=== PATIENT | female | born 1995 | race Caucasian/White ===

== ENCOUNTER 2022-04-22 16:01 | Emergency (ER) | payer BC, SELFPAY ==
--- OUTSIDE RECORDS SUMMARY | 2022-04-22 16:11 | XMS_ITS | Clinical Summary ---
:1995 Author Organization [facility] [place] [address] Care Team Providers Name Role Phone Malini Hoyos MD Primary Care Provider Allergies No known active allergies Medications Medication Sig Dispensed Refills Start Date End Date Status acetaminophen-codeine 6-12 mL, PO, 0 02/20/2008 Active (TYLENOL WITH CODEINE) Q4-6H,PRN 120-12 mg/5 mL solution Social History Tobacco Use Types Packs/Day Years Used Date Never Assessed Sex Assigned at Date Recorded Not on file Plan of Treatment Health Maintenance Due Date Last Done Comments Covid-19 Vaccine (#1) 2001 HPV vaccine (1 - 2-dose series) 12/30/2007 Chlamydia Screening, female 15-25 12/30/2011 HIV screen 2014 Hepatitis C Screening 2014 Tdap adult 12/30/2015 Tetanus vaccine 12/30/2015 PAP Smear 2017 Influenza (Flu) vaccine (1 of - Influenza standard 06/28/2021 series) Insurance Payer Benefit Plan / Subscriber ID Effective Dates Phone Addre ss Type Group [employer] [place] [id number] 2018-Present [address] [place] [address] Care Teams Senior Coldfusion Developer Relationship Specialty Start Date End Date Malini Hoyos MD PCP - General 09/19/10 [address] [place], [place] [address]
--- OUTSIDE RECORDS SUMMARY | 2022-04-22 16:11 | XMS_ITS | Encounter Summary ---
:1995 Author Organization [facility] Address [address] [place] [address] Care Team Providers Name Role Phone Albertina Johnson PA-C Primary Care Provider Reason for Referral (Routine) - Authorization Not Required Specialty Diagnoses / Procedures Referred By Contact Refer red To Contact Diagnoses Moderate persistent asthma, unspecified whether complicated Chloe Celis, ANALYTICAL TECH Procedures PULMONARY FUNCTION TESTING [address] [phone] Referral ID Status Reason Start Expiration Visits Visits Date Date Requested Authorized [id number] Authorization Not 09/30/2019 1 1 Required Reason for Visit (Routine) - Authorization Not Required Specialty Diagnoses / Procedures Referred By Contact Refer red To Contact Diagnoses Moderate persistent asthma, unspecified whether complicated Chloe Celis, ANALYTICAL TECH Procedures PULMONARY FUNCTION TESTING [address] [phone] Referral ID Status Reason Start Expiration Visits Visits Date Date Requested Authorized [id number] Authorization Not 09/30/2019 1 1 Required Encounter Details Date Type Department Care Team Description 09/30/2020 Hospital Encounter [facility] Mod erate persistent Pulmonary Function Lab asthm a, unspecified - [facility] whether complicated [address] [place] [address] Social History Tobacco Use Types Packs/Day Years Used Date Passive Smoke Exposure - Never Smoker Smokeless Tobacco: Never Used Alcohol Use Standard Drinks/Week Comments No 0 (1 standard drink = 0.6 oz pure alcoho l) Sex Assigned at Date Recorded Female 09/16/2021 22:07 EST documented as of this encounter Medications at Time of Discharge Medication Sig Dispensed Refills Start Date End Date cortisone acetate Inject into the 0 (CORTISONE IM) muscle. Not IM but pt does have Cortisone injections in SI Joint every couple of months. fluticasone (VERAMYST) Instill 1 [place] into 0 27.5 mcg/actuation nasal both nostrils daily. spray ibuprofen (MOTRIN) 400 every 6 hours as 0 mg tablet needed. inhalational spacing Inhale as directed. 0 device (AEROCHAMBER) Use with a metered dose inhaler, as directed. May be dispensed with mask as appropriate. medical supply, Knee high 0 01/02/2017 miscellaneous (COMPRESSION STOCKINGS MIS) metoprolol (LOPRESSOR) Take 25 mg by mouth 0 25 mg tablet daily as needed. montelukast (SINGULAIR) Take 1 Tab by mouth 30 Tab 11 01/2019 10 mg tablet every evening. MULTIVITAMIN ORAL Take by mouth. 0 albuterol (PROAIR HFA) Inhale 1-2 Puffs as 1 Inhaler 11 01/201910/10/2020 90 mcg/actuation inhaler directed every 4 hours as needed for Wheezing. Max: 12 puffs/day. norgestimate-ethinyl Take 1 Tab by mouth 0 12/22/2021 estradiol (SPRINTEC, daily. 28,) 0.25-35 mg-mcg per tablet documented as of this encounter Discharge Disposition Disposition Code Departure Means Destination Home or Self Care documented in this encounter Progress Notes Inna Banegas RT - 09/30/2020 1430 EST Testing was performed and recorded in [facility]. See complete report in scanned documents. documented in this encounter Plan of Treatment Scheduled Orders Name Type Priority Associated Diagnoses Order S chedule PULMONARY FUNCTION PFT Routine Moderate persistent 1 Occurrences starting TESTING asthma, unspecified 09/30/20 20 until whether complicated 09/30/20 documented as of this encounter Procedures Procedure Name Priority Date/Time Associated Diagnosis Comme nts PULMONARY FUNCTION REPORT 10/07/2020 12:59 EST - SCANNED documented in this encounter Visit Diagnoses Diagnosis Moderate persistent asthma, unspecified whether complicated documented in this encounter Administered Medications Inactive Administered Medications - up to 3 most recent administrations Medication Order MAR Action Action Date Dose Rate Site albuterol inhaler 180 mcg Given 09/30/2020 14:35 EST 180 mcg 180 mcg (2 Puff), inhalation, ONCE, 1 dose, Starting on Sat09/30/20 at 1500, Until Sat09/30/20 at 1435, Routine documented in this encounter Orders Medications Ordered That Might Not Have Count Last Ord ered Date First Ordered Date Been Administered albuterol inhaler 180 mcg 1 09/30/2020 Procedures Count Last Ordered Date First Ordered Date PULMONARY FUNCTION REPORT - SCANNED 1 10/07/2020 documented in this encounter Care Teams Tack Puller Relationship Specialty Start Date End Date Albertina Johnson PA-C PCP - General 10/15/14 [address] [place] [address] documented as of this encounter
--- OUTSIDE RECORDS SUMMARY | 2022-04-22 16:11 | XMS_ITS | Encounter Summary ---
:1995 Author Organization [facility] Address [address] [place] [address] Care Team Providers Name Role Phone Albertina Johnson PA-C Primary Care Provider Encounter Details Date Type Department Care Team Description 09/04/2021 Orders Only [facility] Chloe Celis, Abdirahman dove persistent Pulmonary Function [facility] asthma without Lab - [address] complication (Primary [address] Dx) [place], [place] [id number] [place] [address] [address], [address] [place] [address] (Wo rk) Social History Tobacco Use Types Packs/Day Years Used Date Passive Smoke Exposure - Never Smoker Smokeless Tobacco: Never Used Alcohol Use Standard Drinks/Week Comments Yes 0 (1 standard drink = 0.6 oz pure alcoho l) socially Alcohol Habits Answer Date Recorded How often do you have a drink containing alcohol? Not asked How many drinks containing alcohol do you have on a typical Not asked day when you are drinking? How often do you have six or more drinks on one occasion? No t asked Comment: socially 08/14/2021 Sex Assigned at Date Recorded Female 09/16/2021 22:07 EST COVID-19 Exposure Response Date Recorded In the last month, have you been in contact with No / Unsure 08/14/2021 13:43 EDT someone who was confirmed or suspected to have Coronavirus / COVID-19? documented as of this encounter Progress Notes Kleber Mckeon - 09/04/2021 1354 EST COVID test order for PFT procedure on 09/20/21 documented in this encounter Plan of Treatment Not on filedocumented as of this encounter Results COVID-19 TESTING (09/17/2021 10:33 EST) COVID-19 rt-PCR Negative Negative [facility] Result Comment: [facility] This test has not been FDA c leared or approved. This test has been authorized by FDA under an EUA for use by authorized laboratories. This test has been authorized only for detection of nucleic acid fro SERVICES m 2019-nCoV, not for any oth er viruses or pathogens. This test is only authorized for the duration of the declaration that circumstances exist justifying the authorization of emergency use of in vitro d iagnostic tests for detectio n and/or diagnosis of 2019-nCoV under section 564(b)(1) of Act, 21 U.S.C ?? 360bbb-3(b) (1), unless the authorization is terminated or revoked sooner. Negative results do not prec lude 2019-nCoV infection and should not be used as the sole basis for treatment or other patient management decisions. Negative results must be combined with clinical observa tions, patient history, and epidemiological informatio n. Testing was performed using the poppy SARS-CoV-2 assay ([employer] on the Poppy 6800 System Performing Lab Poppy [address] [facility] Lab [facility] Specimen Swab - Anterior nares Performing Organization Address City/State/ZIP Code Phon e Number [facility] [address] [place] [address] SERVICES documented in this encounter Visit Diagnoses Diagnosis Moderate persistent asthma without compl ication - Primary Unspecified asthma documented in this encounter Care Teams Senior Policy Advisor Relationship Specialty Start Date End Date Albertina Johnson PA-C PCP - General 10/15/14 [address] [place] [address] documented as of this encounter
--- OUTSIDE RECORDS SUMMARY | 2022-04-22 16:11 | XMS_ITS | Encounter Summary ---
:1995 Author Organization [facility] Address [address] [place] [address] Care Team Providers Name Role Phone Albertina Johnson PA-C Primary Care Provider Encounter Details Date Type Department Care Team Description 10/03/2020 Orders Only [facility] Srikanth Henry, EVONNE Conta ct with and Pulmonology & Critical (susp ected) exposure to Care - [facility] other viral [address] [facility] [place] [address] (Primary Dx) [phone] Social History Tobacco Use Types Packs/Day Years Used Date Passive Smoke Exposure - Never Smoker Smokeless Tobacco: Never Used Alcohol Use Standard Drinks/Week Comments No 0 (1 standard drink = 0.6 oz pure alcoho l) Sex Assigned at Date Recorded Female 09/16/2021 22:07 EST documented as of this encounter Plan of Treatment Not on filedocumented as of this encounter Visit Diagnoses Diagnosis Contact with and (suspected) exposure to other viral communicable diseases - Primary documented in this encounter Care Teams Full Stack Developer Relationship Specialty Start Date End Date Albertina Johnson PA-C PCP - General 10/15/14 [address] [place], [place] [id number] documented as of this encounter
--- OUTSIDE RECORDS SUMMARY | 2022-04-22 16:11 | XMS_ITS | Encounter Summary ---
:1995 Author Organization [facility] [place] [address] Care Team Providers Name Role Phone Malini Hoyos MD Primary Care Provider Reason for Referral Diagnostic Test (Routine) - Closed Specialty Diagnoses / Procedures Referred By Contact Refer red To Contact Radiology Diagnoses Chronic SI joint pain Low back pain, unspecified back pain laterality, unspecified chronicity, unspecified whether sciatica present Tamy Law MD [facility] Rad Ct Scan Procedures CT Guided Injection SI Joint [address] [place], [place] [id number] [place] [phone] Referral ID Status Reason Start Date Expiration Date Visits V isits Requested Authorized [id number] Closed Specialty 11/10/2019 05/10/2021 1 1 Service Requested Reason for Visit Diagnostic Test (Routine) - Closed Specialty Diagnoses / Procedures Referred By Contact Refer red To Contact Radiology Diagnoses Chronic SI joint pain Low back pain, unspecified back pain laterality, unspecified chronicity, unspecified whether sciatica present Tamy Law MD [facility] Rad Ct Scan Procedures CT Guided Injection SI Joint [address] [place], [place] [address] [place] [phone] Referral ID Status Reason Start Date Expiration Date Visits V isits Requested Authorized [id number] Closed Specialty 11/10/2019 05/10/2021 1 1 Service Requested Encounter Details Date Type Department Care Team Description 12/01/[address] Scan at [facility] Thanh, Chronic SI joint pain; [facility] MD Tamy Low back pain, unspecified back pain lat erality, unspecified chronicity, unspecified whether sciatica present [address] [facility] [place] [address] [phone] Social History Tobacco Use Types Packs/Day Years Used Date Never Assessed Sex Assigned at Date Recorded Not on file documented as of this encounter Medications at Time of Discharge Medication Sig Dispensed Refills Start Date End Date acetaminophen-codeine 6-12 mL, PO, 0 02/20/2008 (TYLENOL WITH CODEINE) Q4-6H,PRN 120-12 mg/5 mL solution documented as of this encounter Plan of Treatment Not on filedocumented as of this encounter Procedures Procedure Name Priority Date/Time Associated Diagnosis Comme nts CT GUIDED INJECTION Routine 12/01/2019 10:10 AM Chronic SI carlyn nt Results for this SI JOINT EST pain procedure are in Low back pain, the results unspecified back section. pain laterality, unspecified chronicity, unspecified whether sciatica present documented in this encounter Results CT Guided Injection SI Joint (12/01/2019 10:10 AM EST) Anatomical Region Laterality Modality Computed Tomography Specimen (Source) Anatomical Location Collection Method / Collectio n Time Received Time / Laterality Volume Impressions 12/01/2019 10:[address]-guided bilateral sacroiliac joint anesthetic and steroid injection. Preliminary report signed by: Harshad leyva at 12/01/2019 10:32 AM I have personally reviewed the image(s) and the resident's interpretation and agree with the findings, Luis hogan at 12/01/2019 10:39 AM Thank you for letting us participate in the care of this patient. For questions regarding this report, please contact geoffrey jin below. ? Narrative 12/01/2019 10:39 AM EST EXAMINATION: CT GUIDED INJECTION SI JOINT ? CLINICAL HISTORY: Bilateral SI injection for dx and tx purposes COMPARISON: MRI lumbar spine 04/02/2019 TECHNIQUE: The risks and benefits of the procedure were discussed with the patient, and written informed consent was obtained. ? ?The patient was positioned prone on the CT table, and noncontrast images of the sacrum were obtained. ??An appropriate level and access path were chosen. ??The skin was then marked, prepped and draped in the usual sterile fashion. 1% lidocai ne used for local anesthesia. ?? With intermittent CT fluoroscopic guidan ce, a 20-gauge spinal needle was advanced into each sacroiliac joint. Int o each joint, 2 mL of 0.5% bupivacaine mixed with 40 mg of Depo-Medrol was inje cted. ??The needles were removed. The patient tolerated the procedure well wit h no immediate complications. FINDINGS: Sclerotic lesion along the chet al side of the syndesmotic portion of the right sacroiliac joint, most compati ble with bone island. Preprocedure pain: 4/10 on the left, 3/1 0 on the right Postprocedure pain: 0/10 bilaterally Procedure Note Luis Hernandez MD - 12/01/2019Format ting of this note might be different from the original. EXAMINATION: CT GUIDED INJECTION SI JOIN T CLINICAL HISTORY: Bilateral SI injection for dx and tx purposes COMPARISON: MRI lumbar spine 04/02/2019 TECHNIQUE: The risks and benefits of the procedure were discussed with the patient, and written informed consent was obtained. T he patient was positioned prone on the CT table, and noncontrast images of the sacrum were obtained. An appropriate level and access path were chosen. The s kin was then marked, prepped and draped in the usual sterile fashion. 1% lidocai ne used for local anesthesia. With intermittent CT fluoroscopic guidan ce, a 20-gauge spinal needle was advanced into each sacroiliac joint. Int o each joint, 2 mL of 0.5% bupivacaine mixed with 40 mg of Depo-Medrol was inje cted. The needles were removed. The patient tolerated the procedure well wit h no immediate complications. FINDINGS: Sclerotic lesion along the chet al side of the syndesmotic portion of the right sacroiliac joint, most compati ble with bone island. Preprocedure pain: 4/10 on the left, 3/1 0 on the right Postprocedure pain: 0/[address]-guided bilateral sacroilia c joint anesthetic and steroid injection. Preliminary report signed by: Harshad leyva at 12/01/2019 10:32 AM I have personally reviewed the image(s) and the resident's interpretation and agree with the findings, Luis hogan at 12/01/2019 10:39 AM Thank you for letting us participate in the care of this patient. For questions regarding this report, please contact [facility] number below. Tamy Law MD IMG CT ORDERABLES documented in this encounter Visit Diagnoses Diagnosis Chronic SI joint pain Disorders of sacrum Low back pain, unspecified back pain lat erality, unspecified chronicity, unspecified whether sciatica present documented in this encounter Care Teams Eyeglass Maker Relationship Specialty Start Date End Date Malini Hoyos MD PCP - General 09/19/10 [address] [place] [address] documented as of this encounter
--- OUTSIDE RECORDS SUMMARY | 2022-04-22 16:11 | XMS_ITS | Clinical Summary ---
:1995 Author Organization [facility] Address [address] [place] [address] Care Team Providers Name Role Phone Albertina Johnson PA-C Primary Care Provider Allergies No known active allergies Medications Medication Sig Dispensed Refills Start Date End Date Status inhalational spacing Inhale as 0 Active device (AEROCHAMBER) directed. Use with a metered dose inhaler, as directed. May be dispensed with mask as appropriate. metoprolol (LOPRESSOR) Take 25 mg by 0 Active 25 mg tablet mouth daily as needed. MULTIVITAMIN ORAL Take by mouth. 0 Active fluticasone (VERAMYST) Instill 1 [place] 0 Active 27.5 mcg/actuation into both nostrils nasal spray daily. montelukast Take 1 Tab by 30 Tab 11 09/30/2019 Act timbo (SINGULAIR) 10 mg mouth every tablet evening. Additional Information Patient not taking. Reported on 09/30/2020 ibuprofen (MOTRIN) 400 mg every 6 hours as needed. 0 Active tablet medical supply, miscellaneous Knee high 0 01/02/2017 Active (COMPRESSION STOCKINGS MISC) cortisone acetate (CORTISONE Inject into the muscle. Not 0 Active IM) IM but pt does have Cortisone injections in SI Joint every couple of months. levalbuterol (XOPENEX HFA) 45 Inhale 1-2 Puffs as 15 g 11 09/22/2021 Active mcg/actuation inhaler directed every 4 to 6 hours as needed for Wheezing. Max 12 puffs/day. fluticasone propion-salmeteroL Inhale 2 Puffs as directed 12 g 0 12/07/2021 Active (ADVAIR HFA) 115-21 2 times daily. mcg/actuation inhalerIndications: Moderate persistent asthma without complication Active Problems Problem Noted Date Asthma, mild persistent 11/22/2014 Immunizations Name Administration Dates Next Due Covid-19 mRNA Vaccine (MODERNA COVID-19) 08/31/2021, 021, 11/11/2020 PF 0.5 ml IM (18 yrs+) Surgical History Surgery Date Site/Laterality Comments FOOT SURGERY FOOT SURGERY WISDOM TOOTH EXTRACTION Medical History Medical History Date Comments Asthma Family History Medical History Relation Name Comments Asthma Father Cancer Maternal Grandfather Asthma Maternal Grandmother Cancer Maternal Grandmother Asthma Mother Cancer Paternal Grandfather Allergic Rhinitis Neg Hx Childhood Resp Disease Neg Hx Cystic Fibrosis Neg Hx Relation Name Status Comments Father Alive Maternal Grandfather Maternal Grandmother Alive Mother Alive Paternal Grandfather Social History Tobacco Use Types Packs/Day Years [...] at Date Recorded Female 09/16/2021 22:07 EST Last Filed Vital Signs Vital Sign Reading Time Taken Comments Blood Pressure 128/80 09/20/2021 1530 EST Pulse 102 09/20/2021 1530 EST Temperature 36.4 ??C (97.5 ??F) 09/20/2021 1530 EST Respiratory Rate 20 09/30/2020 1459 EST Oxygen Saturation 100% 09/20/2021 1530 EST Inhaled Oxygen Concentration - - Weight 59 kg (130 lb) 09/20/2021 1530 EST Height 156 cm (5' 1.42) 09/30/2020 1459 EST Body Mass Index 24.23 09/30/2020 1459 EST Plan of Treatment Health Maintenance Due Date Last Done Comments Asthma Action Plan 1995 Hepatitis C Screen 1995 Lung Function Test (Spirometry) 09/20/2022 09/20/2021, 12/0 01/2020, 09/30/2019, Additional history exists COVID-19 Vaccine Completed 08/31/2021, 12/09/2020, 11/11/2020 Insurance Payer Benefit Plan / Subscriber ID Effective Phone Address T ype Group Dates [facility] [id number] 2020-Prese [phone] [address] [facility] [employer] [address] [place] [address] [facility] [id number] 2020-Prese [phone] [address] [facility] [employer] [address] [place] [address] Diaz,Kassity A Personal/Family Self [address] (Home) [place] [address] Diaz,Kassity A Personal/Family Self [address] (Home) [place] [address] Care Teams Glue Machine Operator Relationship Specialty Start Date End Date Albertina Johnson PA-C PCP - General 10/15/14 [address] [place], [place] [address]
--- OUTSIDE RECORDS SUMMARY | 2022-04-22 16:11 | XMS_ITS | Encounter Summary ---
:1995 Author Organization [facility] Address [address] [place] [address] Care Team Providers Name Role Phone Albertina Johnson PA-C Primary Care Provider Reason for Visit Reason Onset Date Comments Pharmacy 09/25/2021 Follow-up 09/25/2021 Encounter Details Date Type Department Care Team Description 09/25/2021 Telephone [facility] Chloe Celis, [facility] Pharmacy; Follow-up Pulmonology & Critical [address] [place] [address], [address] [place], [place] [id number] [place] [phone] (Wo rk) Social History Tobacco Use Types [...] 22:07 EST documented as of this encounter Miscellaneous Notes Telephone Encounter - Vadim Dean, - 09/26/2021 0950 EST R: clarified with [facility] pharmacy. Cancel symbicort / albuterol and fill Xopenex/advair. Telephone Encounter - Carmen Small - 09/25/2021 1620 EST Jane calling from [facility] Pharmacy to follow up on request for clarification on medication. Please call back to advise, or if any questions or concerns. elephone Encounter - Lu Verma - 09/25/2021 1049 EST Anum calling from [facility] checking on the recent prescription for the Advair and the Levalbuterol to see if those 2 are replacing the Simbacort and the Albuterol. Please call back. documented in this encounter Plan of Treatment Not on filedocumented as of this encounter Visit Diagnoses Not on filedocumented in this encounter Care Teams Recruiting Scheduler Relationship Specialty Start Date End Date Albertina Johnson PA-C PCP - General 10/15/14 [address] [place] [address] documented as of this encounter
--- OUTSIDE RECORDS SUMMARY | 2022-04-22 16:11 | XMS_ITS | Encounter Summary ---
:1995 Author Organization [facility] Address [address] [place] [address] Care Team Providers Name Role Phone Albertina Johnson PA-C Primary Care Provider Encounter Details Date Type Department Care Team Description 08/14/2021 Travel Social History Tobacco Use Types Packs/Day Years [...] / COVID-19? documented as of this encounter Plan of Treatment Not on filedocumented as of this encounter Visit Diagnoses Not on filedocumented in this encounter Care Teams Emt Dispatcher Relationship Specialty Start Date End Date Albertina Johnson PA-C PCP - General 10/15/14 [address] [place] [address] documented as of this encounter
--- OUTSIDE RECORDS SUMMARY | 2022-04-22 16:11 | XMS_ITS | Encounter Summary ---
:1995 Author Organization [facility] Address [address] [place] [address] Care Team Providers Name Role Phone Albertina Johnson PA-C Primary Care Provider Reason for Referral Test (Routine/Next Available) - Authorization Not Required Specialty Diagnoses / Procedures Referred By Contact Refer red To Contact Diagnoses Moderate persistent asthma without complication Chloe Celis, BURLAP BAG SEWER Procedures PULMONARY FUNCTION TESTING 111 [facility] [address] [place] [address] Referral ID Status Reason Start Expiration Visits Visits Date Date Requested Authorized [id number] Authorization Not 12/22/2021 1 1 Required Reason for Visit Reason Comments Telemedicine Video Visit 3mos Asthma Encounter Details Date Type Department Care Team Description 12/22/2021 Telemedicine [facility] Chloe Celis, Abdirahman dove persistent Pulmonology & BURLAP BAG SEWER asthma without Critical Care - Main 111 [facility] ([facility] [address]) [address] [place] [place] [id number] [place] [address] [place] [address] (Wo rk) Social History Tobacco [...] 22:07 EST documented as of this encounter Progress Notes Chloe Celis NP - 12/22/2021 1000 EST Pulmonary Clinic Follow Up Note Date of Service: 12/22/2021 CC: Chief Complaint Patient presents with ??? Telemedicine Video Visit 3mos ??? Asthma TELEMEDICINE VIDEO VISIT Today's visit was provided through telemedicine video conferencing: The location of the patient : Workplace The location of the provider: Office The following staff and their role did participate in today's encounter visit: Chloe Celis NP History of Present Illness: Rey Diaz is a very pleasant 25 y.o. female with a history of moderate persistent asthma/ GOLD stage I COPD who I spoke with via video today for follow-up. Since I last saw her in person in clinic in August she was able to eventually get her prescriptions filled at the [facility] after having to negotiate difficulties with the pharmacy. She has felt improved using her Advair 115/21, 2 puffs twice a day noting that she has not used her albuterol more than 3 times since starting her new medication. 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 She notes significant increased tolerance of the Xopenex without the shaking/trembling side effects she had previously experienced with ProAir. She denies any recent illnesses. Her scratchy throat is improved. 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 She got in June to her Chris. They have a wood stove but rarely use this asidefrom secondary heat. She recently stopped taking her control. Review of Systems: A 12-point review of systems was completed and otherwise negative aside from what is mentioned above. Past Medical History: Diagnosis Date ??? Asthma Past Surgical History: Procedure Laterality Date ??? FOOT SURGERY ??? FOOT SURGERY ??? WISDOM TOOTH EXTRACTION Social History Tobacco Use ??? Smoking status: Passive Smoke Exposure - Never Smoker ??? Smokeless tobacco: Never Used Substance Use Topics ??? Alcohol use: Yes Comment: socially ??? Drug use: Not on file Current Outpatient Medications Medication ??? albuterol (PROAIR HFA) 90 mcg/actuation inhaler ??? cortisone acetate (CORTISONE IM) ??? fluticasone (VERAMYST) 27.5 mcg/actuation nasal spray ??? fluticasone propion-salmeteroL (ADVAIR HFA) 115-21 mcg/actuation inhaler ??? fluticasone propion-salmeteroL (ADVAIR HFA) 115-21 mcg/actuation inhaler ??? ibuprofen (MOTRIN) 400 mg tablet ??? inhalational spacing device (AEROCHAMBER) ??? levalbuterol (XOPENEX HFA) 45 mcg/actuation inhaler ??? medical supply, miscellaneous (COMPRESSION STOCKINGS MISC) ??? metoprolol (LOPRESSOR) 25 mg tablet ??? montelukast (SINGULAIR) 10 mg tablet ??? MULTIVITAMIN ORAL ??? norgestimate-ethinyl estradiol (SPRINTEC, 28,) 0.25-35 mg-mcg per tablet No current facility-administered medications for this visit. No Known Allergies Objective: LIMITED PHYSICAL EXAM: General: Alert, cooperative, no distress, appears stated age. Head: Normocephalic, without obvious abnormality, atraumatic. Eyes: Conjunctivae/corneas clear. Extremities: Respiratory: Cardiac: Extremities normal, atraumatic, no cyanosis or edema. Breathing comfortably at regular rate, eupneic. acyanotic Skin: Skin color, texture, turgor normal. No rashes or lesions. Neurologic: Mood and affect appropriate otherwise non focal. DIAGNOSTIC DATA Pulmonary function studies, ordered and reviewed by me, show FVC of 3.66, 106% of predicted FEV1 of 2.41, 80% of predicted Ratio of 65, 75 % of predicted. Consistent with mild persistent airflow limitation. FEV1 slightly diminished from testing a year ago down from 2.51 IMAGING: Recent imaging of the chest available for review. Assessment and Plan: Rey Diaz is a nishi 25 y.o. young lady with moderate persistent asthma and persistent airflowlimitation although her FVC and FEV1 are improved from her spirometry in June 2019. I am happy that she is able to report improvement in her dry scratchy throat given the change to Advair. I am also happy to hear that she feels that she is tolerating levalbuterol/Xopenex better without the previously described side effects. I encouraged her to continue exercising regularly and taking her inhalers regularly. Given that she has recently stopped taking her control and that she and her are planning on starting a family in the next year or so, I cautioned Rey that some women feel that their asthma worsens while . I asked for her to reach out if she feels that her symptoms are worsening if/when she becomes . She was appreciative of this anticipatory guidance. I will plan to follow-up with her in approximately 1 year. Please do not hesitate to contact me with any questions or concerns. Chloe Celis NP Pulmonary Medicine [facility] I spent a total of 30 minutes on the date of this encounter meeting with the patient and reviewing documentation/coordinating care as described in the above note. This note has been prepared with voice recognition software. Please excuse consultative sales associate errors. Cleopatra Yan MA - 12/22/2021 1000 EST Intake: Patient reports that her breathing has been good and states that she really likes the new inhalers she was put on last time. Patient states that she has not noticed SOB, chest tightness or wheezing. Patient reports occasionally coughing if it is very cold out, noting that it is not often. Patient states that the cough is non productive. Cleopatra Yan MA - 12/22/2021 1000 EST The concept of ???Telemedicine?? has been described to the patient.? Patient has been informed of the anticipated benefits and possible risks.? Patient understands the information provided regarding telemedicine, has had the opportunity to ask questions about this information, and all questions have been answered to patient???s satisfaction. Patient consents for the use of telemedicine in his/her medical care and authorizes the transmission of any relevant medical information to providers and theirstaff involved in patient???s medical or mental health care. Patient understands that they may be responsible for copays, deductible or coinsurance for this service. documented in this encounter Plan of Treatment Scheduled Orders Name Type Priority Associated Diagnoses Order S chedule PULMONARY FUNCTION PFT Routine Moderate persistent 1 Occurrences starting TESTING asthma without 12/22/2021 un til complication 06/21/2023 documented as of this encounter Visit Diagnoses Diagnosis Moderate persistent asthma without compl ication - Primary Unspecified asthma documented in this encounter Discontinued Medications Medication Sig Discontinue Reason Start Date End Date norgestimate-ethinyl Take 1 Tab by mouth Patient Stopped Taking 12/22/2021 estradiol (SPRINTEC, daily. 28,) 0.25-35 mg-mcg per tablet albuterol (PROAIR HFA) Inhale 1-2 Puffs as Patient Stopped Taking 1 12/12/2019 12/22/2021 90 mcg/actuation directed every 4 inhalerIndications: hours as needed for Asthma, unspecified Wheezing. Max: 12 asthma severity, puffs/day. unspecified whether complicated, unspecified whether persistent fluticasone Inhale 2 Puffs as Patient Stopped Taking 09/22/2021 12/22/2021 propion-salmeteroL directed 2 times (ADVAIR HFA) 115-21 daily. mcg/actuation inhaler documented as of this encounter Care Teams Chicken Cleaner Relationship Specialty Start Date End Date Albertina Johnson PA-C PCP - General 10/15/14 [address] [place] [address] documented as of this encounter
--- OUTSIDE RECORDS SUMMARY | 2022-04-22 16:11 | XMS_ITS | Encounter Summary ---
:1995 Author Organization [facility] Address [address] [place] [address] Care Team Providers Name Role Phone Albertina Johnson PA-C Primary Care Provider Reason for Referral (Routine) - Authorization Not Required Specialty Diagnoses / Procedures Referred By Contact Refer red To Contact Diagnoses Moderate persistent asthma without complication Chloe Celis NP Procedures PULMONARY FUNCTION TESTING [address] [address] Referral ID Status Reason Start Expiration Visits Visits Date Date Requested Authorized [id number] Authorization Not 09/30/2020 2 2 Required Reason for Visit (Routine) - Authorization Not Required Specialty Diagnoses / Procedures Referred By Contact Refer red To Contact Diagnoses Moderate persistent asthma without complication Chloe Celis, TU Procedures PULMONARY FUNCTION TESTING [address] [address] Referral ID Status Reason Start Expiration Visits Visits Date Date Requested Authorized [id number] Authorization Not 09/30/2020 2 2 Required Encounter Details Date Type Department Care Team Description 09/20/2021 Hospital Encounter [facility] Mod erate persistent Pulmonary Function Lab asthm a without - [facility] [place] complication [address] [place] [address] Social History Tobacco Use Types Packs/Day Years [...] couple of months. fluticasone (VERAMYST) Instill 1 Bryan into 0 27.5 mcg/actuation nasal both nostrils daily. spray ibuprofen (MOTRIN) 400 every 6 hours as 0 mg tablet needed. inhalational spacing Inhale as directed. 0 device (AEROCHAMBER) Use with a metered dose inhaler, as directed. May be dispensed with mask as appropriate. levalbuterol (XOPENEX Inhale 1-2 Puffs as 15 g 09/22 HFA) 45 mcg/actuation directed every 4 to 6 inhaler hours as needed for Wheezing. Max 12 puffs/day. medical supply, Knee high 0 01/02/2017 miscellaneous (COMPRESSION STOCKINGS MISC) metoprolol (LOPRESSOR) Take 25 mg by mouth 0 25 mg tablet daily as needed. montelukast (SINGULAIR) Take 1 Tab by mouth 30 Tab 11 01/2019 10 mg tablet every evening. MULTIVITAMIN ORAL Take by mouth. 0 albuterol (PROAIR HFA) Inhale 1-2 Puffs as 1 Inhaler 11 09/2712/22/2021 90 mcg/actuation directed every 4 inhalerIndications: hours as needed for Asthma, unspecified Wheezing. Max: 12 asthma severity, puffs/day. unspecified whether complicated, unspecified whether persistent fluticasone Inhale 2 Puffs as 12 g 11 09/22/2021 02/25/ 2022 propion-salmeteroL directed 2 times (ADVAIR HFA) 115-21 daily. mcg/actuation inhaler fluticasone Inhale 2 Puffs as 12 g 11 09/20/20212020 propion-salmeteroL directed 2 times (ADVAIR HFA) 115-21 daily. mcg/actuation inhaler levalbuterol (XOPENEX Inhale 1-2 Puffs as 15 g 11 09/2009/22/2021 HFA) 45 mcg/actuation directed every 4 to 6 inhaler hours as needed for Wheezing. Max 12 puffs/day. norgestimate-ethinyl Take 1 Tab by mouth 0 12/22/2021 estradiol (SPRINTEC, daily. 28,) 0.25-35 mg-mcg per tablet documented as of this encounter Discharge Disposition Disposition Code Departure Means Destination Home or Self Care documented in this encounter Progress Notes Inna Banegas RT - 09/20/2021 1530 EST Testing was performed and recorded in [employer]. See complete report in Procedures. documented in this encounter Plan of Treatment Not on filedocumented as of this encounter Procedures Procedure Name Priority Date/Time Associated Diagnosis Comme nts PULMONARY FUNCTION Routine 09/20/2021 15:15 EST Moderate persi stent TESTING asthma without complication documented in this encounter Visit Diagnoses Diagnosis Moderate persistent asthma without compl ication Unspecified asthma documented in this encounter Orders PFT Count Last Ordered Date First Ordered Date PULMONARY FUNCTION TESTING 1 09/20/2021 documented in this encounter Care Teams Branch Lead Relationship Specialty Start Date End Date Albertina Johnson PA-C PCP - General 10/15/14 [address] [place] [address] documented as of this encounter
--- OUTSIDE RECORDS SUMMARY | 2022-04-22 16:11 | XMS_ITS | Encounter Summary ---
:1995 Author Organization [facility] [place] [address] Care Team Providers Name Role Phone Malini Hoyos MD Primary Care Provider Encounter Details Date Type Department Care Team Description 04/25/2018 Ancillary Procedure Radiology at [facility] Tamy Law [address] [place] [address] [address] TEJAL NAPIER [phone] [facility], [place] [address] Social History Tobacco Use Types Packs/Day Years Used Date Never Assessed Sex Assigned at Date Recorded Not on file documented as of this encounter Plan of Treatment Not on filedocumented as of this encounter Procedures Procedure Name Priority Date/Time Associated Diagnosis Comme nts FILM LIBRARY Routine 04/25/2018 12:00 AM Results for this STORAGE ONLY DX EDT procedure ar e in SPINE the results section. documented in this encounter Results Film Library- Storage Only DX Spine (04/25/2018 12:00 AM EDT) Specimen (Source) Anatomical Location Collection Method / Collectio n Time Received Time / Laterality Volume Narrative RAD - 05/21/2019 4:17 PM EDT This exam is auto-finalizing. It's purpo se is for storage only. Tamy Law MD IM FILM LIBRARY ORDERABLES Performing Organization Address City/State/ZIP Code Phon e Number RAD RAD [place], [place] documented in this encounter Visit Diagnoses Not on filedocumented in this encounter Care Teams Configuration Management Advisor Relationship Specialty Start Date End Date Malini Hoyos MD PCP - General 09/19/10 [address] [place] [address] documented as of this encounter
--- OUTSIDE RECORDS SUMMARY | 2022-04-22 16:11 | XMS_ITS | Encounter Summary ---
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 Medications Refill Pulmonology & Critical [address] [place] [address], [address] [place], [place] [id number] [place] [address] [phone] (Wo rk) Social History Tobacco Use Types Packs/Day Years Used Date Passive Smoke Exposure - Never Smoker Smokeless Tobacco: Never Used Alcohol Use Standard Drinks/Week Comments No 0 (1 standard drink = 0.6 oz pure alcoho l) Sex Assigned at Date Recorded Female 09/16/2021 22:07 EST documented as of this encounter Ordered Prescriptions Prescription Sig Dispensed Refills Start Date End Date albuterol (PROAIR HFA) 90 Inhale 1-2 Puffs as 1 Inhaler 11 12/12/2019 12/22/2021 mcg/actuation directed every 4 inhalerIndications: hours as needed for Asthma, unspecified Wheezing. Max: 12 asthma severity, puffs/day. unspecified whether complicated, unspecified whether persistent documented in this encounter Miscellaneous Notes Telephone Encounter - Tawny Card RN - 10/11/2020 0918 EST Requested Prescriptions Signed Prescriptions Disp Refills ??? albuterol (PROAIR HFA) 90 mcg/actuation inhaler 1 Inhaler 11 Sig: Inhale 1-2 Puffs as directed every 4 hours as needed for Wheezing. Max: 12 puffs/day. Authorizing Provider: CHLOE CELIS Ordering User: TAWNY CARD [facility] 158 [facility] 158 [facility] 7 [facility] [address] [facility]/pharmacy #[id number] [place], [place] - [address] 15 [facility] [address] Sent to [facility] in [place]. elephone Encounter - Cynthia Moon - 10/10/2020 8049 EST Medication(s) Requested - [facility] Next Visit Date Visit date not found Out of Medication? Unknown Cynthia Moon 10/10/2020 14:59 documented in this encounter Plan of Treatment Not on filedocumented as of this encounter Visit Diagnoses Diagnosis Asthma, unspecified asthma severity, uns pecified whether complicated, unspecified whether persistent - Primary documented in this encounter Discontinued Medications Medication Sig Discontinue Reason Start Date End Date albuterol (PROAIR HFA) Inhale 1-2 Puffs as Reorder 09/30/2019 10/10/2020 90 mcg/actuation directed every 4 inhaler hours as needed for Wheezing. Max: 12 puffs/day. documented as of this encounter Care Teams Lead Programmer Relationship Specialty Start Date End Date Albertina Johnson PA-C PCP - General 10/15/14 [address] [place] [address] documented as of this encounter
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
--- OUTSIDE RECORDS SUMMARY | 2022-04-22 16:11 | XMS_ITS | Encounter Summary ---
:1995 Author Organization [facility] Address [address] [place] [address] Care Team Providers Name Role Phone Albertina Johnson PA-C Primary Care Provider Reason for Visit (Routine) - Authorization Not Required Specialty Diagnoses / Procedures Referred By Contact Refer red To Contact Diagnoses Moderate persistent asthma, unspecified whether complicated Chloe Celis, COMMAND CENTER ANALYST Procedures PULMONARY FUNCTION TESTING 111 [facility], [address] [place] [address] Referral ID Status Reason Start Expiration Visits Visits Date Date Requested Authorized [id number] Authorization Not 09/30/2019 1 1 Required Encounter Details Date Type Department Care Team Description 09/30/2020 Hospital Encounter [facility] Pulmonary Function Lab - [facility] [address] [place], [place] [address] Social History Tobacco Use Types Packs/Day Years [...] couple of months. fluticasone (VERAMYST) Instill 1 [place] into 0 27.5 mcg/actuation nasal both nostrils [...] as needed for Wheezing. Max: 12 puffs/day. budesonide-formoterol Inhale 2 Puffs as 1 Inhaler 020 09/20/2021 HFA (SYMBICORT) 160-4.5 directed 2 times mcg/actuation HFA daily. aerosol inhaler inhaler budesonide-formoterol Inhale 2 Puffs as 1 Inhaler 020 09/20/2021 HFA (SYMBICORT) 80-4.5 directed 2 times mcg/actuation HFA daily. aerosol inhaler inhaler norgestimate-ethinyl Take 1 Tab by mouth 0 12/22/2021 estradiol (SPRINTEC, daily. 28,) 0.25-35 mg-mcg per tablet documented as of this encounter Discharge Disposition Disposition Code Departure Means Destination Home or Self Care documented in this encounter Plan of Treatment Not on filedocumented as of this encounter Visit Diagnoses Not on filedocumented in this encounter Orders PFT Count Last Ordered Date First Ordered Date PULMONARY FUNCTION TESTING 1 09/30/2020 documented in this encounter Care Teams Watch Repairer Relationship Specialty Start Date End Date Albertina Johnson PA-C PCP - General 10/15/14 [address] [place] [address] documented as of this encounter
--- OUTSIDE RECORDS SUMMARY | 2022-04-22 16:11 | XMS_ITS | Encounter Summary ---
:1995 Author Organization [facility] Address [address] [place] [address] Care Team Providers Name Role Phone Albertina Johnson PA-C Primary Care Provider Reason for Referral (Routine) - Authorization Not Required Specialty Diagnoses / Procedures Referred By Contact Refer red To Contact Diagnoses Moderate persistent asthma without complication Chloe Celis, VP SALES Procedures PULMONARY FUNCTION TESTING 111 [facility] [address] [place] [address] Referral ID Status Reason Start Expiration Visits Visits Date Date Requested Authorized [id number] Authorization Not 09/30/2020 2 2 Required Reason for Visit Reason Comments Follow-up Asthma Encounter Details Date Type Department Care Team Description 09/30/2020 Office Visit [facility] Chloe Celis, Abdirahman dove persistent Pulmonology & VP SALES asthma without Critical Care - Main 111 [facility] ([facility] [address]) [address] [place] [address] (Wo rk) Social History Tobacco [...] Sign Reading Time Taken Comments Blood Pressure 112/70 09/30/2020 1459 EST Pulse 81 09/30/2020 1459 EST Temperature 36.4 ??C (97.5 ??F) 09/30/2020 1459 EST Respiratory Rate 20 09/30/2020 1459 EST Oxygen Saturation 98% 09/30/2020 1459 EST Inhaled Oxygen Concentration - - Weight 60.8 kg (134 lb 0.6 oz) 09/30/2020 1459 EST Height 156 cm (5' 1.42) 09/30/2020 1459 EST Body Mass Index 24.98 09/30/2020 1459 EST documented in this encounter Ordered Prescriptions Prescription Sig Dispensed Refills Start Date End Date budesonide-formoterol HFA Inhale 2 Puffs as 1 Inhaler 11 01/202009/20/2021 (SYMBICORT) 160-4.5 directed 2 times mcg/actuation HFA aerosol daily. inhaler inhaler budesonide-formoterol HFA Inhale 2 Puffs as 1 Inhaler 11 01/202009/20/2021 (SYMBICORT) 80-4.5 directed 2 times mcg/actuation HFA aerosol daily. inhaler inhaler documented in this encounter Progress Notes Chloe Celis, DIRECTOR OF SAFETY AND SECURITY - 09/30/2020 1500 EST Pulmonary Clinic Follow Up Note Date of Service: 09/30/2020 CC: Chief Complaint Patient presents with ??? Follow-up ??? Asthma History of Present Illness: Rey Diaz is a very pleasant 24 y.o. female with a history of moderate persistent asthma who returns the pulmonary clinic today for follow-up. Since she was last seen in the pulmonary clinic a year ago she reports that overall her breathing is felt great. She denies any recent illnesses. She denies any chronic cough although admits to occasional cough related to running outside to start her car when it is very cold out. She denies any sputum production with this. She has been off of her Symbicort as she does not use this during the summer months. She is planning to start this soon. She last used her albuterol inhaler sometime in March when she experienced an asthma attack which she feels is related to the mask that she was wearing. 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 She recently became engaged and is planning on getting in June. She has been seeing a gas producer who is been helping with Joint pain. She was found to have multiple food sensitivities including pineapple, figs, dates, bananas, sea urchin's, broccoli, [place] sprouts, chestnuts, vanilla extract, peanuts, fungi, green tea and peanuts. She has been avoiding these foods and feels that this is dramatically helped with her previous fairly severe GERD symptoms. She feels that her asthma is well controlled denying any recent use of as needed albuterol. She denies any daytime symptoms. She denies any nocturnal awakenings. She denies any recent illnesses. Review of Systems: A 12-point review of systems was completed and otherwise negative aside from what is mentioned above. Past Medical History: Diagnosis Date ??? Asthma Past Surgical History: Procedure Laterality Date ??? FOOT SURGERY ??? FOOT SURGERY Social History Tobacco Use ??? Smoking status: Passive Smoke Exposure - Never Smoker ??? Smokeless tobacco: Never Used Substance Use Topics ??? Alcohol use: No ??? Drug use: Not on file Current [...] visit. No Known Allergies Objective: VITALS: BP 112/70 Pulse 81 Temp 36.4 ??C (97.5 ??F) (Tympanic) Resp 20 Ht 156 cm (61.42) Wt 60.8 kg (134 lb 0.6 oz) SpO2 98% BMI 24.98 kg/m?? PHYSICAL EXAM:BP 112/70 Pulse 81 Temp 36.4 ??C (97.5 ??F) (Tympanic) Resp 20 Ht 156 cm (61.42) Wt 60.8 kg (134 lb 0.6 oz) SpO2 98% BMI 24.98 kg/m?? General: Alert, cooperative, no distress, appears [...] and reviewed by me, show FVC of 3.72 liters , 107% of predicted FEV1 of 2.51 liters, 82% of predicted Ratio of 67.29, 76 % of predicted. Consistent with mild persistent airflow limitation. FEV1 slightly diminished from testing a year ago down from 2.67. IMAGING: Recent imaging of the chest available for review. Assessment and Plan: Rey Diaz is a nishi 24 y.o. young lady with moderate persistent asthma and persistent airflowlimitation although her FVC and FEV1 are improved from her spirometry in June 2019. I believe that her current numbers are consistent with her baseline. I have encouraged her to continue taking her Symbicort 80/4.5 during the winter and if she has increased symptoms she may bump this up to 160/4.5, 2 puffs twice a day. I will plan to see her back in the pulmonary clinic in approximately 1 year or sooner if needed. Please do not hesitate to contact me with any questions or concerns. Chloe Celis NP Pulmonary Medicine [facility] I spent a total of 25 minutes on the date of this encounter meeting with the patient and reviewing documentation/coordinating care as described in the above note. This note has been prepared with voice recognition software. Please excuse career information specialist errors. Juliana Maldonado MA - 09/30/2020 1500 EST Pulmonary Review of Symptoms Constitutional: NONE Hematology: NONE Eyes: NONE Ear, Nose and Throat: NONE Allergies: NONE Skin: NONE Neurological: NONE Genitourinary: NONE Endocrine / Heme / Allergies: NONE Psychiatric: NONE Gastrointestinal: NONE Cardiovascular: NONE Musculoskeletal: Back Pain Respiratory: NONE Other Comments / Notes: documented in this encounter Plan of Treatment Not on filedocumented as of this encounter Visit Diagnoses Diagnosis Moderate persistent asthma without compl ication - Primary Unspecified asthma documented in this encounter Discontinued Medications Medication Sig Discontinue Reason Start Date End Date budesonide-formoterol Inhale 2 Puffs as Reorder 09/30/2019 1 12/01/2019 HFA (SYMBICORT) 160-4.5 directed 2 times mcg/actuation HFA daily. aerosol inhaler inhaler budesonide-formoterol Inhale 2 Puffs as Reorder 09/30/2019 1 12/01/2019 HFA (SYMBICORT) 80-4.5 directed 2 times mcg/actuation HFA daily. aerosol inhaler inhaler documented as of this encounter Orders PFT Count Last Ordered Date First Ordered Date PULMONARY FUNCTION TESTING 1 09/20/2021 documented in this encounter Care Teams Television News Video Editor Relationship Specialty Start Date End Date Albertina Johnson PA-C PCP - General 10/15/14 [address] [place] [address] documented as of this encounter
--- OUTSIDE RECORDS SUMMARY | 2022-04-22 16:11 | XMS_ITS | Encounter Summary ---
:1995 Author Organization [facility] [place] [address] Care Team Providers Name Role Phone Malini Hoyos MD Primary Care Provider Encounter Details Date Type Department Care Team Description 04/02/2019 Ancillary Procedure Radiology at [facility] [place] [address] [address] TERESA NAPIER [phone] NEUROSURGERY-N [place], [place] [address] Social History Tobacco Use Types Packs/Day Years Used Date Never Assessed Sex Assigned at Date Recorded Not on file documented as of this encounter Plan of Treatment Not on filedocumented as of this encounter Procedures Procedure Name Priority Date/Time Associated Diagnosis Comme nts FILM LIBRARY Routine 04/02/2019 12:00 AM Results for this STORAGE ONLY MR EDT procedure ar e in SPINE the results section. documented in this encounter Results Film Library- Storage Only MR Spine (04/02/2019 12:00 AM EDT) Specimen (Source) Anatomical Location Collection Method / Collectio n Time Received Time / Laterality Volume Narrative RAD - 05/21/2019 4:14 PM EDT This exam is auto-finalizing. It's purpo se is for storage only. Tamy Law MD [facility] FILM LIBRARY ORDERABLES Performing Organization Address City/State/ZIP Code Phon e Number RAD RAD [place], [place] documented in this encounter Visit Diagnoses Not on filedocumented in this encounter Care Teams Trout Farmer Relationship Specialty Start Date End Date Malini Hoyos MD PCP - General 09/19/10 [address] [place] [address] documented as of this encounter
--- OUTSIDE RECORDS SUMMARY | 2022-04-22 16:11 | XMS_ITS | Encounter Summary ---
:1995 Author Organization [facility] Address [address] [place] [address] Care Team Providers Name Role Phone Albertina Johnson PA-C Primary Care Provider Reason for Visit Reason Onset Date Comments Pharmacy 10/05/2020 Encounter Details Date Type Department Care Team Description 10/05/2020 Telephone [facility] Chloe Celis, RIB SAWYER Pharmacy Pulmonology & Critical Care [address] [place] [address], [address], [address] [place], [place] [id number] [place] [phone] (Wo rk) Social History Tobacco Use Types Packs/Day Years Used Date Passive Smoke Exposure - Never Smoker Smokeless Tobacco: Never Used Alcohol Use Standard Drinks/Week Comments No 0 (1 standard drink = 0.6 oz pure alcoho l) Sex Assigned at Date Recorded Female 09/16/2021 22:07 EST documented as of this encounter Miscellaneous Notes Telephone Encounter - Ana M Farah RN - 10/05/2020 1532 EST Discussed with Vimal and she would like to continue to prescribe both doses as patient is able to decide dose based on season and symptoms. Called pharmacy to update. Telephone Encounter - Jenifer Hassan - 10/05/2020 1038 EST Lianet received 2 Rx for Symbicort with 2 strengths, please call with clarity on which one to fill. documented in this encounter Plan of Treatment Not on filedocumented as of this encounter Visit Diagnoses Not on filedocumented in this encounter Care Teams Motion Picture Printer Relationship Specialty Start Date End Date Albertina Johnson PA-C PCP - General 10/15/14 [address] [place] [address] documented as of this encounter
--- OUTSIDE RECORDS SUMMARY | 2022-04-22 16:11 | XMS_ITS | Encounter Summary ---
:1995 Author Organization [facility] Address [address] [place] [address] Care Team Providers Name Role Phone Albertina Johnson PA-C Primary Care Provider Encounter Details Date Type Department Care Team Description 09/17/2021 Phlebotomy Only [facility] - Mode rate persistent JOHN BELTRAN MOBILE asthma without [address] [place] [address] Social History Tobacco Use Types Packs/Day Years [...] Name Priority Date/Time Associated Diagnosis Comme nts COVID-19 TEST [facility] Today 09/17/2021 10:33 Moderate persiste nt LAB PCR EST asthma without complication COVID-19 TESTING Routine 09/17/2021 10:33 Moderate persistent Results for this EST asthma without procedure are in complication the results section. documented in this encounter Results COVID-19 TEST [facility] LAB PCR (09/17/2021 10:33 EST) Specimen Swab - Anterior nares Performing Organization Address City/State/ZIP Code Phon e Number [facility] [address] [place] [address] SERVICES COVID-19 TESTING (09/17/2021 10:33 EST) COVID-19 rt-PCR Negative Negative [facility] Result Comment: [facility] This test [...] performed using the poppy SARS-CoV-2 assay ([employer] on the Poppy 6800 System Performing Lab Poppy [address] [facility] Lab [facility] SERVICES Specimen Swab - Anterior nares Performing Organization Address City/[facility] Phon e Number [facility] [address] [place] [address] SERVICES documented in this encounter Visit Diagnoses Diagnosis Moderate persistent asthma without compl ication Unspecified asthma documented in this encounter Care Teams Manager Human Capital Relationship Specialty Start Date End Date Albertina Johnson PA-C PCP - General 10/15/14 [address] [place], [place] [address] documented as of this encounter
--- OUTSIDE RECORDS SUMMARY | 2022-04-22 16:11 | XMS_ITS | Encounter Summary ---
:1995 Author Organization [facility] Address [address] [place] [address] Care Team Providers Name Role Phone Albertina Johnson PA-C Primary Care Provider Encounter Details Date Type Department Care Team Description 12/07/2021 Orders Only [facility] Soumya Farah persistent Pulmonology & Critical EVONNE Viramontes asthm a without Care - Main [place] complication (Primary [address]) [place], [place] [id number] Social History Tobacco Use Types Packs/Day Years [...] Sig Dispensed Refills Start Date End Date fluticasone Inhale 2 Puffs as 12 g 0 12/07/2021 propion-salmeteroL (ADVAIR directed 2 times HFA) 115-21 mcg/actuation daily. inhalerIndications: Moderate persistent asthma without complication documented in this encounter Progress Notes Ana M Farah RN - 12/07/2021 0945 EST Requested Prescriptions Signed Prescriptions Disp Refills ??? fluticasone propion-salmeteroL (ADVAIR HFA) 115-21 mcg/actuation inhaler 12 g 0 Sig: Inhale 2 Puffs as directed 2 times daily. [facility] - [facility] [place] - [address] [place] [address] [facility]/pharmacy #[id number] - [place], [place] [address] [facility] [address] [facility] [place] [address] [facility][id number] - [place] [address] [facility] [address] [place] [address] One inhaler sent in because mail order did not send patient's inhalers in time and she will run out tomorrow. documented in this encounter Plan of Treatment Not on filedocumented as of this encounter Visit Diagnoses Diagnosis Moderate persistent asthma without compl ication - Primary Unspecified asthma documented in this encounter Care Teams Cloth Shrinking Machine Operator Helper Relationship Specialty Start Date End Date Albertina Johnson PA-C PCP - General 10/15/14 [address] [place] [address] documented as of this encounter
--- OUTSIDE RECORDS SUMMARY | 2022-04-22 16:11 | XMS_ITS | Encounter Summary ---
:[address] [facility] Address [address] [place] [address] Care Team Providers Name Role Phone Albertina Johnson PA-C Primary Care Provider Encounter Details Date Type Department Care Team Description 09/22/2021 Orders Only [facility] Chloe Celis, REHAB AIDE Pulmonology & Critical [address] [place] [address], [address] [place] [address] [place], [place] [phone] (Wo rk) Social History Tobacco Use [...] documented as of this encounter Progress Notes Vadim Dean, RT - 09/22/2021 1230 EST R: regular faxed paper prescriptions of Xopenex MDI and Advair to [facility] per provider instruction. Let patient know via MyChart. documented in this encounter Plan of Treatment Not on filedocumented as of this encounter Visit Diagnoses Not on filedocumented in this encounter Care Teams Broaching Machine Set Up Operator Relationship Specialty Start Date End Date Albertina Johnson PA-C PCP - General 10/15/[address] [place] [id number] documented as of this encounter
--- OUTSIDE RECORDS SUMMARY | 2022-04-22 16:12 | XMS_ITS | Encounter Summary ---
:1995 Author Organization [facility] Address [address] [place] [address] Care Team Providers Name Role Phone Albertina Johnson PA-C Primary Care Provider Encounter Details Date Type Department Care Team Description 01/04/2020 Results Only [facility] Cassandra Nino NP Lab - Main [place] [address] [facility] [address] [place] [phone] (Wo rk) Social History Tobacco Use Types [...] Name Priority Date/Time Associated Diagnosis Comme nts SED RATE POC - [facility] Routine 01/04/2020 15:26 Resu lts for this EDT procedure are i n the results section. C REACTIVE PROTEIN Routine 01/04/2020 14:50 Resul ts for this EDT procedure are i n the results section. documented in this encounter Results SED RATE POC - [facility] (01/04/2020 15:26 EDT) Pathologist Sig nature SED RATE - [facility] 2 0.0 - 20.0 MM/HOUR [facility] Specimen Performing Organization Address City/State/ZIP Code Phon e Number [facility] [address] [place] [address] [facility] C REACTIVE PROTEIN (01/04/2020 14:50 EDT) Pathologist Sig nature C-Reactive Protein <5.0 <10.0 mg/L [facility] Specimen Narrative [facility] - 020 18:28 EDT Does PT Have a Latex Allergy? NO Performing Organization Address City/[facility] Code Phon e Number [facility] [address] [place] [address] [facility] documented in this encounter Visit Diagnoses Not on filedocumented in this encounter Care Teams Product Advisor Relationship Specialty Start Date End Date Albertina Johnson PA-C PCP - General 10/15/14 [address] [place] [address] documented as of this encounter
--- OUTSIDE RECORDS SUMMARY | 2022-04-22 16:12 | XMS_ITS | Encounter Summary ---
:1995 Author Organization [facility] Address [address] [place] [address] Care Team Providers Name Role Phone Albertina Johnson PA-C Primary Care Provider Encounter Details Date Type Department Care Team Description 10/03/2018 Hospital Encounter [facility] Chloe Celis, Asthma, unspecified Pulmonary Function WORKERS' COMPENSATION MEDIATOR asthma severity, Lab - [address] unspecified whether [address] [facility] complicated, [facility], [facility] unspecif ied whether [address] [address], [address] persistent [phone] [place] [address] Social History Tobacco Use Types Packs/Day Years Used Date Passive Smoke Exposure - Never Smoker Smokeless Tobacco: Never Used Alcohol Use Standard Drinks/Week Comments No 0 (1 standard drink = 0.6 oz pure alcoho l) Sex Assigned at Date Recorded Female 09/16/2021 22:07 EST documented as of this encounter Discharge Diagnoses Diagnosis J45.909 Unspecified asthma, uncomplicate d-J45.909[ICD-10-CM] documented in this encounter Medications at Time of Discharge Medication Sig Dispensed Refills Start Date End Date inhalational spacing Inhale as directed. 0 device (AEROCHAMBER) Use with a metered dose inhaler, as directed. May be dispensed with mask as appropriate. medical supply, Knee high 0 01/02/2017 miscellaneous (COMPRESSION STOCKINGS MISC) metoprolol (LOPRESSOR) 25 Take 25 mg by mouth 0 mg tablet daily as needed. albuterol (PROAIR HFA) 90 Inhale 1-2 Puffs as 1 Inhaler 11 0 07/19/2017 01/02/2019 mcg/actuation inhaler directed every 4 hours as needed for Wheezing. Max: 12 puffs/day. budesonide-formoterol HFA Inhale 2 Puffs as 1 Inhaler 11 04/201801/02/2019 (SYMBICORT) 160-4.5 directed 2 times mcg/actuation HFA aerosol daily. inhaler inhaler montelukast (SINGULAIR) Take 1 Tab by mouth 30 Tab 11 04/201809/30/2019 10 mg tablet every evening. UNABLE TO FIND daily. Med Name: 0 10/28 Oral Control documented as of this encounter Discharge Disposition Disposition Code Departure Means Destination Auto Discharge Home documented in this encounter Progress Notes Arlette Larsen RT - 10/03/2018 0936 EST Testing was performed and recorded in [employer]. See complete report in scanned documents. documented in this encounter Plan of Treatment Not on filedocumented as of this encounter Procedures Procedure Name Priority Date/Time Associated Diagnosis Comme nts PULMONARY FUNCTION REPORT 11/17/2018 10:21 EST - SCANNED PULMONARY FUNCTION REPORT 10/03/2018 9:50 EST - SCANNED documented in this encounter Visit Diagnoses Diagnosis Asthma, unspecified asthma severity, uns pecified whether complicated, unspecified whether persistent documented in this encounter Administered Medications Inactive Administered Medications - up to 3 most recent administrations Medication Order MAR Action Action Date Dose Rate Site albuterol inhaler 4 Puff Given 10/03/2018 9:37 EST 4 Puffs 4 Puff, inhalation, ONCE, 1 dose, Starting on Sat10/03/18 at 1000, Until Sat10/03/18 at 0937, Routine documented in this encounter Orders Medications Ordered That Might Not Have Count Last Ord ered Date First Ordered Date Been Administered albuterol inhaler 4 Puff 1 10/03/2018 Procedures Count Last Ordered Date First Ordered Date PULMONARY FUNCTION REPORT - SCANNED 2 11/17/2018 10/03/2018 documented in this encounter Care Teams Clerical Adjuster Relationship Specialty Start Date End Date Alex, Albertina, PA-C PCP - General 10/15/14 [address] [place] [address] documented as of this encounter
--- OUTSIDE RECORDS SUMMARY | 2022-04-22 16:12 | XMS_ITS | Encounter Summary ---
:1995 Author Organization [facility] Address [address] [place] [address] Care Team Providers Name Role Phone Albertina Johnson PA-C Primary Care Provider Reason for Referral (Routine) - New Request Specialty Diagnoses / Procedures Referred By Contact Refer red To Contact Diagnoses Asthma, unspecified asthma severity, unspecified whether complicated, unspecified whether persistent Chloe Celis, BRANCH SALES MANAGER Procedures SPIROMETRY WITH BRONCHODILATOR [address] [facility], [address] [place] [address] Referral ID Status Reason Start Date Expiration Date Visits V isits Requested Authorized [id number] New Request 03/17/2018 1 1 Encounter Details Date Type Department Care Team Description 03/12/2018 Orders Only [facility] Chloe Celis, Ast hma, unspecified Pulmonology & BRANCH SALES MANAGER asthma severity, Critical Care - Main [address] [place] unspe cified whether [address] complicated, [address] [facility] [place] [address] [address], Level 5 persistent (Primary [phone] [place], [place] Dx) [phone] (Wo rk) Social History Tobacco Use [...] persistent - Primary documented in this encounter Orders PFT Count Last Ordered Date First Ordered Date SPIROMETRY WITH BRONCHODILATOR 1 03/13/2018 documented in this encounter Care Teams Independent Crop Consultant Relationship Specialty Start Date End Date Albertina Johnson PA-C PCP - General 10/15/14 [address] [place] [address] documented as of this encounter
--- OUTSIDE RECORDS SUMMARY | 2022-04-22 16:12 | XMS_ITS | Encounter Summary ---
:1995 Author Organization [facility] Address [address] [place] [address] Care Team Providers Name Role Phone Albertina Johnson PA-C Primary Care Provider Reason for Visit Reason Comments Follow-up Asthma Encounter Details Date Type Department Care Team Description 10/03/[address] [facility] Chloe Celis Mod erate persistent Pulmonology & ANALYTICAL CHEMIST asthma without Critical Care - Main [address] [facility] ([address]) [address] [place] [address] [address], [place] [address] (Wo rk) Social History Tobacco [...] Sign Reading Time Taken Comments Blood Pressure 120/71 10/03/2018 1001 EST Pulse 69 10/03/2018 1001 EST Temperature 36.3 ??C (97.3 ??F) 10/03/2018 1001 EST Respiratory Rate 16 10/03/2018 1001 EST Oxygen Saturation 100% 10/03/2018 1001 EST Inhaled Oxygen Concentration - - Weight 61.8 kg (136 lb 3.9 oz) 10/03/2018 1001 EST Height 155.9 cm (5' 1.38) 10/03/2018 1001 EST Body Mass Index 25.43 10/03/2018 1001 EST documented in this encounter Patient Instructions Patient InstructionsChloe Celis NP - 10/03/2018 10:00 EST Start montelukast / Singulair. Continue symbicort and albuterol I'll see you in 3 months to recheck your numbers and see how you are feeling. documented in this encounter Ordered Prescriptions Prescription Sig Dispensed Refills Start Date End Date montelukast (SINGULAIR) 10 Take 1 Tab by mouth 30 Tab 11 10/03/2018 09/30/2019 mg tablet every evening. documented in this encounter Progress Notes Chloe Celis NP - 10/03/2018 1000 EST Pulmonary Clinic Follow Up Note Date of Service: 10/03/2018 CC: Chief Complaint Patient presents with ??? Follow-up ??? Asthma History of Present Illness: Rey Diaz is a very pleasant 22 y.o. female with a history of moderate persistent asthma who returns the pulmonary clinic today for follow-up. Since she was last seen in the clinic in March 2018 she states that overall her breathing has been great. She denies any recent illnesses. She denies any fe elings of limitations. She does note experiencing predictable cough when getting out of the shower, and she feels that this is her asthma. She recently moved out of her parent's house and is no longer exposed to secondhand smoke. She is now living with her boyfriend in [place], they do have a wood stove but the use this is secondary heat infrequently. She is running an air purifier in their bedroom. They do have a dog and rabbit but she does not feel sensitive to them. She notes feeling more tolerant of the cold this year in comparison to previous. She continues to use her Symbicort 160/4.5, 2 puffs twice a day with a spacer and diligent oral hygiene following. She states that she has not used her albuterol in over a couple of months. 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 She has been through physical therapy for this and is now awaiting a an appointment withthe spine clinic. Review of Systems: A 12-point review of systems was completed and positive for depression/anxiety, back pain, joint pain, cough, otherwise negative aside from what is mentioned above. Past Medical History: Diagnosis Date ??? Asthma Past Surgical History: Procedure Laterality Date ??? FOOT SURGERY ??? FOOT SURGERY Social History Tobacco Use ??? Smoking status: Passive Smoke Exposure - Never Smoker ??? Smokeless tobacco: Never Used Substance Use Topics ??? Alcohol use: No ??? Drug use: Not on file Current Outpatient Medications: albuterol (PROAIR HFA) 90 mcg/actuation inhaler budesonide-formoterol HFA (SYMBICORT) 160-4.5 mcg/actuation HFA aerosol inhaler inhaler inhalational spacing device (AEROCHAMBER) metoprolol (LOPRESSOR) 25 mg tablet UNABLE TO FIND No current facility-administered medications for this visit. No Known Allergies Objective: Vitals: 10/03/18 1001 BP: 120/71 Pulse: 69 Resp: 16 Temp: 36.3 ??C (97.3 ??F) TempSrc: Tympanic SpO2: 100% Weight: 61.8 kg (136 lb 3.9 oz) Height: 155.9 cm (61.38) Physical Examination: General appearance - alert, well appearing, and in no distress Mental status - alert, oriented to person, place, and time Eyes - pupils equal and reactive Mouth - mucous membranes moist Neck - supple, no significant adenopathy Lymphatics - no palpable lymphadenopathy Chest - clear to auscultation, no wheezes, rales or rhonchi, symmetric air entry Heart - normal rate, regular rhythm, normal S1, S2, no murmurs Abdomen -deferred Neurological - alert, oriented, normal speech, no focal findings Extremities -no clubbing or cyanosis Skin - normal coloration and turgor, no rashes Imaging: No recent imaging of the chest available for review Diagnostics: Pulmonary Function testing performed today and independently reviewed. FVC 3.60, 103 % predicted, 2.80 LLN FEV1 2.64, 86 % predicted, 2.43 LLN FEV1/FVC 73 %, 83 % predicted, 78 % LLN Mild airflow limitation without significant improvement following bronchodilator administration. FEV1 improved from 2.47, 79% predicted in March. Assessment and Plan: Rey Diaz is a 22 y.o. woman with moderate persistent asthma and continued airflow limitation on spirometry. I reviewed the results of her spirometry today. After discussing further with Dr. Huston I will keep her on the Symbicort 160/4.5, 2 puffs twice a day and have added montelukast 10 mg daily to her medication regimen. I explained to the patient that 86% may be her baseline FEV1 and the goal of her continued therapy will be to maintain this as adding other inhaled medications may cause more side effects than perceived benefit. We also discussed the importance of avoiding triggers and using her albuterol inhaler when needed. She is going to continue to work on improving her environment by washing her sheets in hot water weekly, obtaining other air purifier's etc. we will plan to see her back in the pulmonary clinic in approximately 3 months with pulmonary function at that time. She isaware that she should contact the pulmonary clinic at anytime with any questions concerns or changesin her symptomatology prior to her next appointment. Please do not hesitate to contact me with any questions or concerns. Chloe Celis NP Pulmonary Medicine [facility] This note has been prepared with voice recognition software. Please excuse distribution lead errors. documented in this encounter Plan of Treatment Not on filedocumented as of this encounter Visit Diagnoses Diagnosis Moderate persistent asthma without compl ication - Primary Unspecified asthma documented in this encounter Historical Medications This list may reflect changes made after this encounter. Medication Sig Dispensed Refills Start Date End Date metoprolol (LOPRESSOR) 25 Take 25 mg by mouth 0 mg tablet daily as needed. added in this encounter Care Teams Motorsports Technician Relationship Specialty Start Date End Date Albertina Johnson PA-C PCP - General 10/15/14 [address] [place] [address] documented as of this encounter
--- OUTSIDE RECORDS SUMMARY | 2022-04-22 16:12 | XMS_ITS | Encounter Summary ---
:1995 Author Organization [facility] Address [address] [place] [address] Care Team Providers Name Role Phone Albertina Johnson PA-C Primary Care Provider Reason for Referral (Routine) - Closed Specialty Diagnoses / Procedures Referred By Contact Refer red To Contact Diagnoses Asthma, unspecified asthma severity, unspecified whether complicated, unspecified whether persistent Chloe Celis, VENDING MACHINE HOST/HOSTESS Procedures SPIROMETRY WITH BRONCHODILATOR [address] [facility], [address] [place] [address] Referral ID Status Reason Start Date Expiration Date Visits Requ ested Visits Authorized [id number] Closed 10/13/2017 1 1 Encounter Details Date Type Department Care Team Description 10/08/2017 Orders Only [facility] Chloe Celis, Ast hma, unspecified Pulmonology & VENDING MACHINE HOST/HOSTESS asthma severity, Critical Care - Main [address] [place] unspe cified whether [address] complicated, [address] [facility] [place] [address] [address], [address] persistent (Primary [phone] [place], [place] Dx) [phone] (Wo rk) Social History [...] First Ordered Date SPIROMETRY WITH BRONCHODILATOR 1 10/08/2017 documented in this encounter Care Teams Certified Nursing Attendant Relationship Specialty Start Date End Date Albertina Johnson PA-C PCP - General 10/15/14 [address] [place] [address] documented as of this encounter
--- OUTSIDE RECORDS SUMMARY | 2022-04-22 16:12 | XMS_ITS | Encounter Summary ---
:1995 Author Organization [facility] Address [address] [place] [address] Care Team Providers Name Role Phone Albertina Johnson PA-C Primary Care Provider Encounter Details Date Type Department Care Team Description 10/17/2017 Hospital Encounter [facility] Chloe Celis, Asthma, unspecified Pulmonary Function FRUIT RECEIVER asthma severity, Lab - [address] unspecified whether [address] [facility] complicated, [facility], [facility] unspecif ied whether [address] [address], [address] persistent [phone] [place] [address] Social History Tobacco Use Types [...] Sig Dispensed Refills Start Date End Date medical supply, Knee high 0 01/02/2017 miscellaneous (COMPRESSION STOCKINGS MISC) albuterol (PROAIR HFA) 90 Inhale 1-2 Puffs as 1 Inhaler 11 0 07/19/2017 01/02/2019 mcg/actuation inhaler directed every 4 hours as needed for Wheezing. Max: 12 puffs/day. budesonide-formoterol HFA Inhale 2 Puffs as 1 Inhaler 11 04/03/2018 (SYMBICORT) 80-4.5 directed 2 times mcg/actuation HFA aerosol daily. inhaler inhaler documented as of this encounter Discharge Disposition Disposition Code Departure Means Destination Auto Discharge Home documented in this encounter Progress Notes Jeanna Garcia RT - 10/17/2017 0918 EST Testing was performed and recorded in [email or web address]. See complete report in scanned documents. documented in this encounter Plan of Treatment Not on filedocumented as of this encounter Procedures Procedure Name Priority Date/Time Associated Diagnosis Comme nts PULMONARY FUNCTION REPORT 10/31/2017 7:01 EST - SCANNED PULMONARY FUNCTION REPORT 10/17/2017 9:29 EST - SCANNED documented in this encounter Visit Diagnoses Diagnosis Asthma, unspecified asthma severity, uns pecified whether complicated, unspecified whether persistent documented in this encounter Administered Medications Inactive Administered Medications - up to 3 most recent administrations Medication Order MAR Action Action Date Dose Rate Site albuterol inhaler 4 Puff Given 10/17/2017 9:03 EST 4 Puffs 4 Puff, inhalation, ONCE, 1 dose, Starting on Nevaeh 10/17/17 at 0945, Until Nevaeh 10/17/17 at 0903, Routine documented in this encounter Orders Medications Ordered That Might Not Have Count Last Ord ered Date First Ordered Date Been Administered albuterol inhaler 4 Puff 1 10/17/2017 Procedures Count Last Ordered Date First Ordered Date PULMONARY FUNCTION REPORT - SCANNED 2 10/31/2017 10/17/2017 documented in this encounter Care Teams Telephone Installer Relationship Specialty Start Date End Date Albertina Johnson PA-C PCP - General 10/15/14 [address] [place] [address] documented as of this encounter
--- OUTSIDE RECORDS SUMMARY | 2022-04-22 16:12 | XMS_ITS | Encounter Summary ---
:1995 Author Organization [facility] Address [address] [place] [address] Care Team Providers Name Role Phone Albertina Johnson PA-C Primary Care Provider Encounter Details Date Type Department Care Team Description 09/15/2018 Results Only Imaging [facility]- Unknown, [facility] ProviderMD [phone] Social History Tobacco Use Types Packs/Day Years Used Date Passive Smoke Exposure - Never Smoker Smokeless Tobacco: Never Used Alcohol Use Standard Drinks/Week Comments No 0 (1 standard drink = 0.6 oz pure alcoho l) Sex Assigned at Date Recorded Female 09/16/2021 22:07 EST documented as of this encounter Plan of Treatment Pending Results Name Type Priority Associated Diagnoses Date/Ti me OUTSIDE IMAGES - OTHER Imaging 09/15 12:33 EST NEURO documented as of this encounter Visit Diagnoses Not on filedocumented in this encounter Care Teams Marketing Regional Consultant Relationship Specialty Start Date End Date Albertina Johnson PA-C PCP - General 10/15/14 [address] [place], [place] [address] documented as of this encounter
--- OUTSIDE RECORDS SUMMARY | 2022-04-22 16:12 | XMS_ITS | Encounter Summary ---
:1995 Author Organization [facility] Address [address] [place] [address] Care Team Providers Name Role Phone Albertina Johnson PA-C Primary Care Provider Reason for Visit Reason Onset Date Comments COVID-19 06/26/2020 Encounter Details Date Type Department Care Team Description 06/26/2020 Telephone [facility] Chloe Cortez W, SUPERVISOR PAPER MACHINE COVID-[address], [address], [address] [place], [place] [address] [place] [address] (Wo rk) Social History Tobacco Use Types Packs/Day Years Used Date Passive Smoke Exposure - Never Smoker Smokeless Tobacco: Never Used Alcohol Use Standard Drinks/Week Comments No 0 (1 standard drink = 0.6 oz pure alcoho l) Sex Assigned at Date Recorded Female 09/16/2021 22:07 EST documented as of this encounter Miscellaneous Notes Telephone Encounter - Will Maldonado - 06/26/2020 1345 EDT Patient called back on Pulmonary answering service. She is going to cancel her PFT because she cannot quarantine due to work conflict. Sending answering service encounter to Pulmonary clinic. elephone Encounter - Deepti Guzmán - 06/26/2020 1335 EDT Called patient to schedule COVID-19 testing. Requested a call back @[phone]. This is our 1st attempt at contacting patient documented in this encounter Plan of Treatment Not on filedocumented as of this encounter Visit Diagnoses Not on filedocumented in this encounter Care Teams Crew Foreman Relationship Specialty Start Date End Date Albertina Johnson PA-C PCP - General 10/15/14 [address] [place] [address] documented as of this encounter
--- OUTSIDE RECORDS SUMMARY | 2022-04-22 16:12 | XMS_ITS | Encounter Summary ---
:[address] [facility] Address [address] [place] [address] Care Team Providers Name Role Phone Albertina Johnson PA-C Primary Care Provider Encounter Details Date Type Department Care Team Description 05/06/2015 Historical Results Only [facility] Jacqueline morgan [place] [facility] Radiology Resul ts [address] [place] [address] [phone] Social History Tobacco Use Types Packs/Day Years Used Date Passive Smoke Exposure - Never Smoker Sex Assigned at Date Recorded Female 09/16/2021 22:07 EST documented as of this encounter Plan of Treatment Not on filedocumented as of this encounter Procedures Procedure Name Priority Date/Time Associated Diagnosis Comme nts XR FOOT RIGHT 3 OR 05/06/2015 11:11 Resul ts for this MORE VIEWS EDT procedure are i n the results section. documented in this encounter Results XR FOOT RIGHT 3 OR MORE VIEWS (05/06/2015 11:11 EDT) Specimen Narrative [facility] - 05/06/2015 11:16 EDT ? EXAM: RADIOLOGY/IKRI-EGRYP-3+VIEW ? EX. D/ (1047) ? CLINICAL INFORMATION: ? S/P ASSESSORY NAVICULAR REMOVAL 2 008, INCREASING ? MEDICAL INSTEP PAIN X2 WEEKS, R/O STRESS ? FRACTURE ? INDICATION: Right foot pain. ? TECHNIQUE: 3 views right foot. ? COMPARISON: None. ? Findings: ??No acute fracture is seen. The left foot is well aligned. ? The joint spaces are preserved. T he medial metatarsal bones appear ? intact. ? IMPRESSION: ? No osseous injury detected. ? REPORT SIGNED IN OTHER VENDOR SYSTEM 05/06/2015 ?Reported B y: Jose Ba MD ? CC: ? Transcribed Date/Time: 05/06/2015 (1116) ? Games Dealer: ? Printed Date/Time: 04/06/2019 (17 24) ? PAGE 1 ? Mickie d Report ? Procedure Note Jose Ba MD - 09/01/2019 EXAM: RADIOLOGY/XHSS-OIIFL-2+VIEW EX. D / (1047) CLINICAL INFORMATION: S/P ASSESSORY NAVICULAR REMOVAL 2008, I NCREASING MEDICAL INSTEP PAIN X2 WEEKS, R/O STRES S FRACTURE INDICATION: Right foot pain. TECHNIQUE: 3 views right foot. COMPARISON: None. Findings: No acute fracture is seen. Th e left foot is well aligned. The joint spaces are preserved. The med ial metatarsal bones appear intact. IMPRESSION: No osseous injury detected. REPORT SIGNED IN OTHER VENDOR SYSTEM 05/06/2015 Reported By: Jose Ba MD CC: Transcribed Date/Time: 05/06/2015 (1116 ) Games Dealer: Printed Date/Time: 04/06/2019 (2701) PAGE 1 Signed Report Performing Organization Address City/State/ZIP Code Phon e Number [facility] documented in this encounter Visit Diagnoses Not on filedocumented in this encounter Care Teams Hims Clerk Relationship Specialty Start Date End Date Albertina Johnson PA-C PCP - General 10/15/[address] [place] [address] documented as of this encounter
--- OUTSIDE RECORDS SUMMARY | 2022-04-22 16:12 | XMS_ITS | Encounter Summary ---
:1995 Author Organization [facility] Address [address] [place] [address] Care Team Providers Name Role Phone Albertina Johnson PA-C Primary Care Provider Reason for Visit Reason Comments Asthma Encounter Details Date Type Department Care Team Description 07/17/2019 Office Visit [facility] Chloe Celis Mod erate persistent Pulmonology & CHEMISTRY TECHNICIAN asthma without Critical Care - Main [address] [facility] (Primary [address]) [address] [place] [address] [address], [place] [address] (Wo rk) Social History Tobacco [...] Sign Reading Time Taken Comments Blood Pressure 122/66 07/17/2019 1343 EDT Pulse 67 07/17/2019 1343 EDT Temperature 37.2 ??C (98.9 ??F) 07/17/2019 1343 EDT Respiratory Rate 16 07/17/2019 1343 EDT Oxygen Saturation 98% 07/17/2019 1343 EDT Inhaled Oxygen Concentration - - Weight 60.3 kg (132 lb 15 oz) 07/17/2019 1343 EDT Height 156.4 cm (5' 1.58) 07/17/2019 1343 EDT Body Mass Index 24.65 07/17/2019 1343 EDT documented in this encounter Progress Notes Chloe Celis, CHEMISTRY TECHNICIAN - 07/17/2019 1400 EDT Pulmonary Clinic Follow Up Note Date of Service: 07/17/2019 CC: Chief Complaint Patient presents with ??? Asthma History of Present Illness: Rey Diaz is a very pleasant 23 y.o. female with a history of moderate persistent asthma who returns the pulmonary clinic today for follow-up. Since she was last seen in the pulmonary clinic in December she reports that overall her breathing has felt great. She did recently become ill approximately 1-1/2 or 2 weeks ago with a head cold that is now settled in her chest. She thinks that she had a fever one time at night when she first became sick. This also cause sort of diffuse chest pain that is both subsided. She denies any chills or night sweats. She denies any sputum production. She feels thatshe is improving and almost over it but continues to cough intermittently. She continues to use her S ymbicort twice a day with a spacer. She is unsure of the last time that she used her albuterol. She denies any nocturnal awakenings. She denies any recent need for prednisone or antibiotics. She continues to live with her boyfriend and crafts [place]. They have a wood stove but uses a secondary heat. She is running an air purifier in their bedroom. They have a dog and a rapid but she does not feel sensitive to them. She continues to use her Symbicort 160/4.5, 2 puffs twice a day with a spacer and diligent oral hygiene following. 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 She is waiting on a referral to see a physician at [facility] for further work-up. Review of Systems: A 12-point review of systems was completed and otherwise negative aside from what is mentioned above. Past Medical History: Diagnosis Date ??? Asthma Past Surgical History: Procedure Laterality Date ??? FOOT SURGERY Social History Tobacco Use ??? Smoking status: Passive Smoke Exposure - Never Smoker ??? Smokeless tobacco: Never Used Substance Use Topics ??? Alcohol use: No ??? Drug use: Not on file Current Outpatient Medications: albuterol (PROAIR HFA) 90 mcg/actuation inhaler budesonide-formoterol HFA (SYMBICORT) 160-4.5 mcg/actuation HFA aerosol inhaler inhaler inhalational spacing device (AEROCHAMBER) metoprolol (LOPRESSOR) 25 mg tablet montelukast (SINGULAIR) 10 mg tablet MULTIVITAMIN ORAL UNABLE TO FIND No Known Allergies Objective: VITALS: BP 122/66 Pulse 67 Temp 37.2 ??C (98.9 ??F) (Tympanic) Resp 16 Ht 156.4 cm (61.58) Wt 60.3 kg (132 lb 15 oz) SpO2 98% BMI 24.65 kg/m?? PHYSICAL EXAM:BP 122/66 Pulse 67 Temp 37.2 ??C (98.9 ??F) (Tympanic) Resp 16 Ht 156.4 cm (61.58) Wt 60.3 kg (132 lb 15 oz) SpO2 98% BMI 24.65 kg/m?? General: Alert, cooperative, no distress, appears [...] and reviewed by me, show FVC of 3.58 liters , 102% of predicted FEV1 of 2.44 liters, 79% of predicted Ratio of 68, 77 % of predicted. Consistent with mild airflow limitation. Both FVC and FEV1 down from previous testing performed in December (3.68, 2.65 respectively.) IMAGING: No recent imaging of the chest available for review Assessment and Plan: Rey Diaz is a nishi 23 y.o. young lady with moderate persistent asthma and continued airflow limitation on spirometry today. We reviewed the results of her spirometry and given the recent illness we have not made any changes to her medication regimen. I have encouraged her to increase her use of her as needed albuterol at times of illness to help with her symptoms of cough. I will plan to see her back in early September for follow-up spirometry. If her spirometry is back to her previous baseline we will plan to drop her Symbicort to 80/4.5, 2 puffs twice a day in an effort to keep her on the lowest dose of steroid for stability. She is aware that she can call the pulmonary clinic at anytime with any questions concerns or possible needs for prednisone. Please do not hesitate to contact me with any questions or concerns. Chloe Celis NP Pulmonary Medicine [facility] This note has been prepared with voice recognition software. Please excuse casing mixer errors. documented in this encounter Plan of Treatment Not on filedocumented as of this encounter Visit Diagnoses Diagnosis Moderate persistent asthma without compl ication - Primary Unspecified asthma documented in this encounter Care Teams Oscillograph Technician Relationship Specialty Start Date End Date Albertina Johnson PA-C PCP - General 10/15/14 [address] [place] [address] documented as of this encounter
--- OUTSIDE RECORDS SUMMARY | 2022-04-22 16:12 | XMS_ITS | Encounter Summary ---
:1995 Author Organization [facility] Address [address] [place] [address] Care Team Providers Name Role Phone Albertina Johnson PA-C Primary Care Provider Encounter Details Date Type Department Care Team Description 01/11/2015 Hospital Encounter [facility] Arie Cohen MD Asthma, mild Pulmonary Function [address] [facility] ent Lab - [facility] [address] [place] [address] [phone] Social History Tobacco Use Types Packs/Day Years Used Date Passive Smoke Exposure - Never Smoker Sex Assigned at Date Recorded Female 09/16/2021 22:07 EST documented as of this encounter Medications at Time of Discharge Medication Sig Dispensed Refills Start Date End Date albuterol 90 Inhale 2 Puffs as 0 07/19 mcg/actuation inhaler directed every 4 hours. fluticasone (FLOVENT) Inhale 2 Puffs as 1 Inhaler 5 015 07/19/2017 110 mcg/actuation directed 2 times inhaler daily. documented as of this encounter Discharge Disposition Disposition Code Departure Means Destination Home or Self [facility] documented in this encounter Progress Notes Navarro Lepe RT - 01/11/2015 0958 EDT Testing was performed and recorded in [facility]. See complete report in scanned documents. documented in this encounter Plan of Treatment Not on filedocumented as of this encounter Procedures Procedure Name Priority Date/Time Associated Diagnosis Comme nts PULMONARY FUNCTION REPORT 01/28/2015 9:42 EDT - SCANNED PULMONARY FUNCTION REPORT 01/11/2015 9:45 EDT - SCANNED documented in this encounter Visit Diagnoses Diagnosis Asthma, mild persistent Unspecified asthma documented in this encounter Administered Medications Inactive Administered Medications - up to 3 most recent administrations Medication Order MAR Action Action Date Dose Rate Site albuterol inhaler 2 Puff Given 01/11/2015 9:20 EDT 2 Puffs 2 Puff, inhalation, ONCE, 1 dose, Starting on Sat01/11/15 at 0945, Until Sat01/11/15 at 0920, Routine documented in this encounter Orders Medications Ordered That Might Not Have Count Last Ord ered Date First Ordered Date Been Administered albuterol inhaler 2 Puff 1 01/11/2015 Procedures Count Last Ordered Date First Ordered Date PULMONARY FUNCTION REPORT - SCANNED 2 01/28/2015 01/11/2015 documented in this encounter Care Teams Safety Tech Relationship Specialty Start Date End Date Albertina Johnson PA-C PCP - General 10/15/14 [address] [place] [address] documented as of this encounter
--- OUTSIDE RECORDS SUMMARY | 2022-04-22 16:12 | XMS_ITS | Encounter Summary ---
:1995 Author Organization [facility] Address [address] [place] [address] Care Team Providers Name Role Phone Albertina Johnson PA-C Primary Care Provider Encounter Details Date Type Department Care Team Description 07/19/2017 [facility] Chloe Celis, COLOR DEPOSITING MACHINE TENDER [address] [facility], [address] [place] [address] Uncomplicated asthma, Encounter Pulmonary Function Unknown, Provider, unspecified asthma Lab - [facility] severity [address] [place], [place] [id number] Social History Tobacco Use Types Packs/Day Years [...] as needed for Wheezing. Max: 12 puffs/day. fluticasone (FLOVENT) 110 Inhale 2 Puffs as 1 Inhaler 5 10/17/2017 mcg/actuation inhaler directed 2 times daily. documented as of this encounter Discharge Disposition Disposition Code Departure Means Destination Auto Discharge Home documented in this encounter Progress Notes Crystal Ibarra RT - 07/19/2017 1001 EDT Testing was performed and recorded in [facility]. See complete report in scanned documents. documented in this encounter Plan of Treatment Not on filedocumented as of this encounter Procedures Procedure Name Priority Date/Time Associated Diagnosis Comme nts PULMONARY FUNCTION REPORT 08/02/2017 6:59 EDT - SCANNED PULMONARY FUNCTION REPORT 07/19/2017 10:18 EDT - SCANNED documented in this encounter Visit Diagnoses Diagnosis Uncomplicated asthma, unspecified asthma severity documented in this encounter Administered Medications Inactive Administered Medications - up to 3 most recent administrations Medication Order MAR Action Action Date Dose Rate Site albuterol inhaler 2 Puff Given 07/19/2017 10:01 EDT 2 Puffs 2 Puff, inhalation, ONCE, 1 dose, Starting on Sat07/19/17 at 1030, Until Sat07/19/17 at 1001, Routine documented in this encounter Orders Medications Ordered That Might Not Have Count Last Ord ered Date First Ordered Date Been Administered albuterol inhaler 2 Puff 1 07/19/2017 Procedures Count Last Ordered Date First Ordered Date PULMONARY FUNCTION REPORT - SCANNED 2 08/02/2017 07/19/2017 documented in this encounter Care Teams Salesperson Household Appliances Relationship Specialty Start Date End Date Albertina Johnson PA-C PCP - General 10/15/14 [address] [place] [address] documented as of this encounter
--- OUTSIDE RECORDS SUMMARY | 2022-04-22 16:12 | XMS_ITS | Encounter Summary ---
:1995 Author Organization [facility] Address [address] [place] [address] Care Team Providers Name Role Phone Albertina Johnson PA-C Primary Care Provider Reason for Referral (Routine) - Authorization Not Required Specialty Diagnoses / Procedures Referred By Contact Refer red To Contact Diagnoses Moderate persistent asthma, unspecified whether complicated Chloe Celis, COAT FITTER Procedures PULMONARY FUNCTION TESTING [address] [facility] [address] [place] [address] Referral ID Status Reason Start Expiration Visits Visits Date Date Requested Authorized [id number] Authorization Not 09/30/2019 1 1 Required Reason for Visit Reason Comments Asthma Encounter Details Date Type Department Care Team Description 09/30/2019 Office Visit [facility] Chloe Celis, Abdirahman dove persistent Pulmonology & COAT FITTER asthma, unspecified Critical Care - Main [address] [facility] [address] (Primary Dx) [address] [place], [place] [id number] [place] [address] [place] [address] (Wo rk) Social History Tobacco [...] Sign Reading Time Taken Comments Blood Pressure 108/70 09/30/2019 1039 EST Pulse 76 09/30/2019 1039 EST Temperature 36.6 ??C (97.9 ??F) 09/30/2019 1039 EST Respiratory Rate 16 09/30/2019 1039 EST Oxygen Saturation 99% 09/30/2019 1039 EST Inhaled Oxygen Concentration - - Weight 61 kg (134 lb 7.7 oz) 09/30/2019 1039 EST Height 156.4 cm (5' 1.58) 09/30/2019 1039 EST Body Mass Index 24.94 09/30/2019 1039 EST documented in this encounter Ordered Prescriptions Prescription Sig Dispensed Refills Start Date End Date montelukast (SINGULAIR) Take 1 Tab by mouth 30 Tab 11 01/2019 10 mg tablet every evening. budesonide-formoterol HFA Inhale 2 Puffs as 1 Inhaler 11 01/201909/30/2020 (SYMBICORT) 80-4.5 directed 2 times mcg/actuation HFA aerosol daily. inhaler inhaler budesonide-formoterol HFA Inhale 2 Puffs as 1 Inhaler 11 01/201909/30/2020 (SYMBICORT) 160-4.5 directed 2 times mcg/actuation HFA aerosol daily. inhaler inhaler albuterol (PROAIR HFA) 90 Inhale 1-2 Puffs as 1 Inhaler 11 1 12/01/2018 10/10/2020 mcg/actuation inhaler directed every 4 hours as needed for Wheezing. Max: 12 puffs/day. documented in this encounter Progress Notes Chloe Celis, SERVICE CENTER ASSISTANT - 09/30/2019 1100 EST Pulmonary Clinic Follow Up Note Date of Service: 09/30/2019 CC: Chief Complaint Patient presents with ??? Asthma History of Present Illness: Rey Diaz is a very pleasant 23 y.o. female with a history of moderate persistent asthma who returns the pulmonary clinic today for follow-up. Since she was last seen in the pulmonary clinic in June she reports that overall her breathing is felt great. She denies any recent illnesses. She denies any chronic cough although admits to occasional cough related to running outside to start her car when it is very cold out. She denies any sputum production with this. She continues to use her Symbicort twice a day with a spacer and diligent oral hygiene following. 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 She feels that her asthma is well controlled denying any recent use of as needed albuterol. She denies any daytime symptoms. She denies any nocturnal awakenings. Review of Systems: A 12-point review of [...] (SYMBICORT) 160-4.5 mcg/actuation HFA aerosol inhaler inhaler fluticasone (VERAMYST) 27.5 mcg/actuation nasal spray inhalational spacing device (AEROCHAMBER) metoprolol (LOPRESSOR) 25 mg tablet montelukast (SINGULAIR) 10 mg tablet MULTIVITAMIN ORAL norgestimate-ethinyl estradiol (SPRINTEC, 28,) 0.25-35 mg-mcg per tablet UNABLE TO FIND No current facility-administered medications for this visit. No Known Allergies Objective: VITALS: BP 108/70 Pulse 76 Temp 36.6 ??C (97.9 ??F) (Tympanic) Resp 16 Ht 156.4 cm (61.58) Wt 61 kg (134 lb 7.7 oz) SpO2 99% BMI 24.94 kg/m?? PHYSICAL EXAM:BP 108/70 Pulse 76 Temp 36.6 ??C (97.9 ??F) (Tympanic) Resp 16 Ht 156.4 cm (61.58) Wt 61 kg (134 lb 7.7 oz) SpO2 99% BMI 24.94 kg/m?? General: Alert, cooperative, no distress, appears [...] me, show FVC of 3.72 liters , 106% of predicted FEV1 of 2.67 liters, 87% of predicted Ratio of 71.6, 81 % of predicted. Consistent with mild persistent airflow limitation. IMAGING: Recent imaging of the chest available for review. Assessment and Plan: Rey Diaz is a nishi 23 y.o. young lady with moderate persistent asthma and persistent airflowlimitation although her FVC and FEV1 are improved from her spirometry in June, I believe that this dip in her PFTs was related to her recent illness back in the fall and she has now returned back to her baseline. I have encouraged her to continue taking her Symbicort 160/4.5, 2 puffs twice a day until the weather is warmer and then come spring she can decrease her dose to 80/4.5, 2 puffs twice aday with a spacer if tolerated. We will plan to see her back in the pulmonary clinic in approximately 6 months or sooner if needed. Please do not hesitate to contact me with any questions or concerns. Chloe Celis, [facility] Pulmonary Medicine [facility] This note has been prepared with voice recognition software. Please excuse sales and business development manager errors. Radha Reynolds MA - 09/30/2019 1100 EST 5 documented in this encounter Plan of Treatment Scheduled Orders Name Type Priority Associated Diagnoses Order S chedule PULMONARY FUNCTION PFT Routine Moderate persistent 1 Occurrences starting TESTING asthma, unspecified 09/30/20 19 until whether complicated 09/30/20 documented as of this encounter Visit Diagnoses Diagnosis Moderate persistent asthma, unspecified whether complicated - Primary documented in this encounter Discontinued Medications Medication Sig Discontinue Reason Start Date End Date montelukast (SINGULAIR) Take 1 Tab by mouth Reorder 10/03/2018 09/30/2019 10 mg tablet every evening. albuterol (PROAIR HFA) Inhale 1-2 puffs as Reorder 01/02/2019 09/30/2019 90 mcg/actuation inhaler directed every 4 hours as needed for Wheezing. Max: 12 puffs/day. budesonide-formoterol Inhale 2 puffs as Reorder 01/02/2019 1 12/01/2018 HFA (SYMBICORT) 160-4.5 directed 2 times mcg/actuation HFA daily. aerosol inhaler inhaler documented as of this encounter Historical Medications This list may reflect changes made after this encounter. Medication Sig Dispensed Refills Start Date End Date fluticasone (VERAMYST) Instill 1 [place] into 0 27.5 mcg/actuation nasal both nostrils daily. spray norgestimate-ethinyl Take 1 Tab by mouth 0 12/22/2021 estradiol (SPRINTEC, daily. 28,) 0.25-35 mg-mcg per tablet added in this encounter Care Teams Rivet Hole Machine Operator Relationship Specialty Start Date End Date Albertina Johnson PA-C PCP - General 10/15/14 [address] [place] [address] documented as of this encounter
--- OUTSIDE RECORDS SUMMARY | 2022-04-22 16:12 | XMS_ITS | Encounter Summary ---
:1995 Author Organization [facility] Address [address] [place] [address] Care Team Providers Name Role Phone Albertina Johnson PA-C Primary Care Provider Encounter Details Date Type Department Care Team Description 01/04/2020 Results Only [facility] Cassandra Nino NP Lab - Main [place] [address] [facility] [address] [place] [address] [phone] (Wo rk) Social History Tobacco Use Types [...] Name Priority Date/Time Associated Diagnosis Comme nts CBC W/PLT & Routine 01/04/2020 15:26 Results for this DIFF,POINT OF CARE EDT procedure are in - [facility] the results section. documented in this encounter Results (ABNORMAL) CBC W/PLT & DIFF,POINT OF CARE - [facility] (01/04/2020 15:26 EDT) Pathologist Sig nature Gran # 6.0 1.4 - 6.5 [facility] X10E3/UL CENTER LAB GRAN % - [facility] 75.5 (H) 42.2 - 75.2 % [facility] HEMATOCRIT - [facility] 40.8 35.0 - 60.0 % [facility] HEMOGLOBIN - [facility] 14.1 11.0 - 18.0 [facility] G/DL RHEEMS LAB LYMPH # - [facility] 1.7 1.2 - 3.4 [facility] X10E3/UL [facility] LAB LYMPH% - [facility] 22.1 20.5 - 51.1 % [facility] MEAN CORPUSCULAR HGB 31.1 (H) 27.0 - 31.0 PG [facility] MEAN CORPUSCULAR HGB 34.5 33.0 - 37.0 [facility] CONC [facility] G/DL [facility]HE[facility]S LAB MEAN CELL VOLUME - 89.9 80.0 - 99.9 FL [facility] LAB MONO # - [facility] 0.2 0.1 - 0.6 [facility] X10E3/UL [facility] LAB MONO% - [facility] 2.4 1.7 - 9.3 % [facility] MEAN PLATELET VOLUME 8.3 7.8 - 11.0 FL [facility] LAB PLATELET COUNT 293 150 - 450 [facility] X10E3/UL [facility] LAB RED BLOOD COUNT - 4.54 4.00 - 6.00 [facility] X10E6/UL [facility] LAB RED CELL DISTRI WIDTH 13.2 11.6 - 13.7 % [facility] WHITE BLOOD COUNT - 7.9 4.5 - 10.5 [facility] X10E3/UL [facility] LAB Specimen Performing Organization Address City/State/ZIP Code Phon e Number [facility] [address] [place] [address] [facility] documented in this encounter Visit Diagnoses Not on filedocumented in this encounter Care Teams Leather Cutter Relationship Specialty Start Date End Date Albertina Johnson PA-C PCP - General 10/15/14 [address] [place] [address] documented as of this encounter
--- OUTSIDE RECORDS SUMMARY | 2022-04-22 16:12 | XMS_ITS | Encounter Summary ---
:1995 Author Organization [facility] Address [address] [place] [address] Care Team Providers Name Role Phone Albertina Johnson PA-C Primary Care Provider Reason for Visit Reason Comments COVID-19 Encounter Details Date Type Department Care Team Description 09/24/[address] [facility] Mobile Scre ening for viral Formerly [facility] Testing disease (Prim ray Dx) [facility] - Mobile Testing Department [address] [place], [place] [address] Social History Tobacco Use Types Packs/Day Years Used Date Passive Smoke Exposure - Never Smoker Smokeless Tobacco: Never Used Alcohol Use Standard Drinks/Week Comments No 0 (1 standard drink = 0.6 oz pure alcoho l) Sex Assigned at Date Recorded Female 09/16/2021 22:07 EST documented as of this encounter Progress Notes Pinky Galindo - 09/24/2020 1030 EST Covid specimen collected by: Florencia DOUGLASS Patient tolerated well. Covid instructional hand-out given. documented in this encounter Plan of Treatment Not on filedocumented as of this encounter Visit Diagnoses Diagnosis Screening for viral disease - Primary Special screening examination for unspec ified viral disease documented in this encounter Care Teams Sample Collector Relationship Specialty Start Date End Date Albertina Johnson PA-C PCP - General 10/15/14 [address] [place] [address] documented as of this encounter
--- OUTSIDE RECORDS SUMMARY | 2022-04-22 16:12 | XMS_ITS | Encounter Summary ---
:1995 Author Organization [facility] Address [address] [place] [address] Care Team Providers Name Role Phone Albertina Johnson PA-C Primary Care Provider Encounter Details Date Type Department Care Team Description 04/25/2018 Historical Results Only [facility] - Varsha Del Toro, [facility] Radiology Resul ts AC [address] [place] [address] [place], [place] [phone] Social History Tobacco Use Types Packs/Day Years [...] Priority Date/Time Associated Diagnosis Comme nts XR LUMBAR SPINE 2-3 04/25/2018 7:58 EDT R esults for this VIEWS procedure are i n the results section. documented in this encounter Results XR LUMBAR SPINE 2-3 VIEWS (04/25/2018 7:58 EDT) Specimen Narrative [facility] - 04/25/2018 8:01 EDT ? EXAM: RADIOLOGY/LUMBAR SPINE 2 OR 3 VIEWS EX. D/ (0746) ? CLINICAL INFORMATION: ?LUMBAR PAIN, ? PARE DEFECT ? LEFT AND RIGHT OBLIQUE VIEWS ONLY ? M54.5 ? LUMBAR SPINE 2 OR 3 VIEWS 04/25/20 18 7:46 AM ? Signs and Symptoms: LUMBAR PAIN, ? PARS DEFECT LUMBAR PAIN, ? PARS ? DEFECT , LEFT AND RIGHT OBLIQUE V IEWS ONLY, M54.5 ? Comparisons: None ? Findings: ? RPO and LPO views of the lumbar s pine were performed. ? There are 5 lumbar type vertebral bodies. Oblique images display no ? pars defect. No fractures is seen . Sacroiliac joints appear ? congruent. ? IMPRESSION: No pars defect detect ed. ? REPORT SIGNED IN OTHER VENDOR SYSTEM 04/25/2018 ?Reported B y: Garcia Pascal MD ? CC: ? Transcribed Date/Time: 04/25/2018 (0801) ? Sports Betting Manager: ? Printed Date/Time: 04/17/2019 (09 47) ? PAGE 1 ? Mickie d Report ? Procedure Note Garcia Pascal MD - 09/02/2019 EXAM: RADIOLOGY/LUMBAR SPINE 2 OR 3 VIE WS EX. D/ (0746) CLINICAL INFORMATION: LUMBAR PAIN, ? PARE DEFECT LEFT AND RIGHT OBLIQUE VIEWS ONLY M54.5 LUMBAR SPINE 2 OR 3 VIEWS 04/25/2018 7:4 6 AM Signs and Symptoms: LUMBAR PAIN, ? PARS DEFECT LUMBAR PAIN, ? PARS DEFECT , LEFT AND RIGHT OBLIQUE VIEWS O NLY, M54.5 Comparisons: None Findings: RPO and LPO views of the lumbar spine w ere performed. There are 5 lumbar type vertebral leslie s. Oblique images display no pars defect. No fractures is seen. Sacr oiliac joints appear congruent. IMPRESSION: No pars defect detected. REPORT SIGNED IN OTHER VENDOR SYSTEM 04/25/2018 Reported By: Garcia Pascal MD CC: Transcribed Date/Time: 04/25/2018 (0801 ) Sports Betting Manager: Printed Date/Time: 04/17/2019 (0916) PAGE 1 Signed Report Performing Organization Address City/State/ZIP Code Phon e Number [facility] documented in this encounter Visit Diagnoses Not on filedocumented in this encounter Care Teams Lumber Bearer Relationship Specialty Start Date End Date Albertina Johnson PA-C PCP - General 10/15/14 [address] [place] [address] documented as of this encounter
--- OUTSIDE RECORDS SUMMARY | 2022-04-22 16:12 | XMS_ITS | Encounter Summary ---
:1995 Author Organization [facility] Address [address] [place] [address] Care Team Providers Name Role Phone Albertina Johnson PA-C Primary Care Provider Encounter Details Date Type Department Care Team Description 07/19/2017 Hospital Encounter [facility] - Chloe Celis NP [address] [address] [address], [place] [address] (Wo rk) Social History Tobacco [...] Auto Discharge Home documented in this encounter Plan of Treatment Not on filedocumented as of this encounter Visit Diagnoses Not on filedocumented in this encounter Care Teams Crusher Supervisor Relationship Specialty Start Date End Date Albertina Johnson PA-C PCP - General 10/15/14 [address] [place] [address] documented as of this encounter
--- OUTSIDE RECORDS SUMMARY | 2022-04-22 16:12 | XMS_ITS | Encounter Summary ---
:1995 Author Organization [facility] Address [address] [place] [address] Care Team Providers Name Role Phone Albertina Johnson PA-C Primary Care Provider Reason for Referral Radiology Services (Routine) - Closed Specialty Diagnoses / Procedures Referred By Contact Refer red To Contact Diagnoses Uncomplicated asthma, unspecified asthma severity Chloe Celis, DYNAMICS AX TECHNICAL ARCHITECT Procedures CHEST PA AND LATERAL [address] [phone] Referral ID Status Reason Start Date Expiration Date Visits Requ ested Visits Authorized [id number] Closed 07/08/2017 1 1 (Routine) - Closed Specialty Diagnoses / Procedures Referred By Contact Refer red To Contact Diagnoses Uncomplicated asthma, unspecified asthma severity Chloe Celis, TU Procedures SPIROMETRY WITH BRONCHODILATOR [address] [phone] Referral ID Status Reason Start Date Expiration Date Visits Requ ested Visits Authorized [id number] Closed 07/13/2017 1 1 Encounter Details Date Type Department Care Team Description 07/08/2017 Orders Only [facility] Chloe Celis, El omplicated asthma, Pulmonology & DYNAMICS AX TECHNICAL ARCHITECT unspecified asthma Critical Care - Main [address] [place] [address] amna jarvis (Primary Dx) [address] [place] [address] [address], [place] [address] (Wo rk) Social History Tobacco Use Types Packs/Day Years Used Date Passive Smoke Exposure - Never Smoker Alcohol Use Standard Drinks/Week Comments No 0 (1 standard drink = 0.6 oz pure alcoho l) Sex Assigned at Date Recorded Female 09/16/2021 22:07 EST documented as of this encounter Plan of Treatment Not on filedocumented as of this encounter Procedures Procedure Name Priority Date/Time Associated Diagnosis Comme nts CHEST PA AND Routine 07/19/2017 9:38 Uncomplicated asthma, Res ults for this LATERAL EDT unspecified asthma procedure are in severity the results section. documented in this encounter Results CHEST PA AND LATERAL (07/19/2017 9:38 EDT) Anatomical Region Laterality Modality Other Specimen Narrative [facility] - 07/19/2017 9:58 EDT CHEST PA AND LATERAL ??07/19/2017 9:38 AM Clinical History/Comments: J45.909-Unspecified asthma, uncomplicate d-ICD-10; Asthma Comparisons: None. Technique: Dual-energy technique with reconstructio ns in normal, soft tissue and bone windows was used. Findings: The lungs are clear and there is no evid ence of pleural disease or pneumothorax. The cardiac silhouette and pulmonary vascularity are normal. The skeleton is unremarkable for age. Impression: No significant abnormality. Procedure Note Washington Riggins MD - 07/19/2017 CHEST PA AND LATERAL 07/19/2017 9:38 AM Clinical History/Comments: J45.909-Unspecified asthma, uncomplicate d-ICD-10; Asthma Comparisons: None. Technique: Dual-energy technique with reconstructio ns in normal, soft tissue and bone windows was used. Findings: The lungs are clear and there is no evid ence of pleural disease or pneumothorax. The cardiac silhouette and pulmonary vascularity are normal. The skeleton is unremarkable for age. Impression: No significant abnormality. Performing Organization Address City/State/ZIP Code Phon e Number [facility] [place] [facility] documented in this encounter Visit Diagnoses Diagnosis Uncomplicated asthma, unspecified asthma severity - Primary documented in this encounter Orders PFT Count Last Ordered Date First Ordered Date SPIROMETRY WITH BRONCHODILATOR 1 07/08/2017 documented in this encounter Care Teams Infrastructure Developer Relationship Specialty Start Date End Date Albertina Johnson PA-C PCP - General 10/15/14 [address] [place] [address] documented as of this encounter
--- OUTSIDE RECORDS SUMMARY | 2022-04-22 16:12 | XMS_ITS | Encounter Summary ---
:1996 Author Organization [facility] Address [address] [place] [address] Care Team Providers Name Role Phone Albertina Johnson PA-C Primary Care Provider Encounter Details Date Type Department Care Team Description 07/17/2019 Hospital Encounter [facility] Sa abdias Celis, IDENTIFICATION TECHNICIAN Pulmonary Function Lab [address] [place] [address], [address], [address] [place] [address] [place], [place] [phone] (Wo rk) Social History Tobacco Use [...] mouth 0 mg tablet daily as needed. MULTIVITAMIN ORAL Take by mouth. 0 albuterol (PROAIR HFA) 90 Inhale 1-2 puffs as 1 Inhaler 11 0 01/02/2019 09/30/2019 mcg/actuation inhaler directed every 4 hours as needed for Wheezing. Max: 12 puffs/day. budesonide-formoterol HFA Inhale 2 puffs as 1 Inhaler 11 05/201909/30/2019 (SYMBICORT) 160-4.5 directed 2 times mcg/actuation HFA [...] Associated Diagnosis Comme nts PULMONARY FUNCTION REPORT 07/17/2019 16:09 EDT - SCANNED PULMONARY FUNCTION REPORT 07/17/2019 13:40 EDT - SCANNED documented in this encounter Visit Diagnoses Not on filedocumented in this encounter Orders Procedures Count Last Ordered Date First Ordered Date PULMONARY FUNCTION REPORT - SCANNED 2 07/20/2019 07/17/2019 documented in this encounter Care Teams Technical Services Assistant Relationship Specialty Start Date End Date Albertina Johnson PA-C PCP - General 10/15/14 [address] [place] [address] documented as of this encounter
--- OUTSIDE RECORDS SUMMARY | 2022-04-22 16:12 | XMS_ITS | Encounter Summary ---
:1996 Author Organization [facility] Address [address] [place] [address] Care Team Providers Name Role Phone Albertina Johnson PA-C Primary Care Provider Encounter Details Date Type Department Care Team Description 03/10/2018 Historical Results [facility] - Diana Askew , Only [facility] - Main [facility] [address] [place] [address] [facility] [phone] [place], [place] [address] Social History Tobacco Use Types Packs/Day Years [...] Name Priority Date/Time Associated Diagnosis Comme nts BACTERIAL CULTURE, Routine 03/10/2018 11:56 Resul ts for this URINE EDT procedure are i n the results section. documented in this encounter Results BACTERIAL CULTURE, URINE (03/10/2018 11:56 EDT) ESCHERIACHIA COLI - [facility] ESCHERICHIA COLI [facility] CitrateConcentration >100,000 CFU/ML [facility] Specimen Organism Antibiotic Method Susceptibility Escherichia coli Ampicillin Sulbactam GRAM NEGATIVE <=2: Susce ptible SUSCEPTIBILITY - [facility] Escherichia coli Ampicillin GRAM NEGATIVE >=32: Resistant SUSCEPTIBILITY - [facility] Escherichia coli Amoxicillin Clavulanic GRAM NEGATIVE <=2: Belén ceptible acid SUSCEPTIBILITY - [facility] Escherichia coli Ceftriaxone GRAM NEGATIVE <=1: Susceptibl e SUSCEPTIBILITY - [facility] Escherichia coli Cefazolin GRAM NEGATIVE 32: Resistant SUSCEPTIBILITY - [facility] Escherichia coli Ciprofloxacin GRAM NEGATIVE <=0.25: Suscept ible SUSCEPTIBILITY - [facility] Escherichia coli Cefepime GRAM NEGATIVE <=1: Susceptibl e SUSCEPTIBILITY - [facility] Escherichia coli Ertapenem GRAM NEGATIVE <=0.5: Suscepti ble SUSCEPTIBILITY - [facility] Escherichia coli Nitrofurantoin GRAM NEGATIVE <=16: Susceptib le SUSCEPTIBILITY - [facility] Escherichia coli Gentamicin GRAM NEGATIVE <=1: Susceptibl e SUSCEPTIBILITY - [facility] Escherichia coli Levofloxacin GRAM NEGATIVE <=0.12: Suscept ible SUSCEPTIBILITY - [facility] Escherichia coli Piperacillin Tazobactam GRAM NEGATIVE <=4: Cárdenas sceptible SUSCEPTIBILITY - [facility] Escherichia coli Trimethoprim-Sulfamethox GRAM NEGATIVE <=20: Susceptible azole SUSCEPTIBILITY - [facility] Escherichia coli Tobramycin GRAM NEGATIVE <=1: Susceptibl e SUSCEPTIBILITY - [facility] Comment: See Reason(s) for Study Performing Organization Address City/State/ZIP Code Phon e Number [facility] [address] [place] [address] [facility] documented in this encounter Visit Diagnoses Not on filedocumented in this encounter Care Teams Rehabilitation Services Manager Relationship Specialty Start Date End Date Albertina Johnson PA-C PCP - General 10/15/14 [address] [place] [address] documented as of this encounter
--- OUTSIDE RECORDS SUMMARY | 2022-04-22 16:12 | XMS_ITS | Encounter Summary ---
:1996 Author Organization [facility] Address [address] [place] [address] Care Team Providers Name Role Phone Albertina Johnson PA-C Primary Care Provider Encounter Details Date Type Department Care Team Description 02/13/2019 Historical Results Only [facility] - Cassandra Posey, TU [facility] Lab - Main [place] [address] [place] [phone] Social History Tobacco Use Types Packs/Day Years [...] encounter Procedures Procedure Name Priority Date/Time Associated Comments Diagnosis TRICHOMONAS VAGINALIS Routine 02/13/2019 11:10 Re sults for this PCR - [facility] EDT procedure are i n the results section. PAP TEST Routine 02/13/2019 10:07 Results for this EDT procedure are i n the results section. documented in this encounter Results TRICHOMONAS VAGINALIS PCR - [facility] (02/13/2019 11:10 EDT) SOURCE CERVIX [facility] TRICHOMONAS NOT DETECTED [facility] VAGINALIS PCR Comment: [facility] Xpert TV assay performance has not been evaluated in women or in patients with a history of hysterectomy. Specimen Narrative [facility] - 14:32 EDT Does PT Have a Latex Allergy? NO Performing Organization Address City/State/ZIP Code Phon e Number [facility] [address] [place] [address] [facility] PAP TEST (02/13/2019 10:07 EDT) Specimen Narrative [facility] - 16:29 EDT Name: REY MICHAEL ? : [birth year] ?Age/Sex: 23/F ?Unit#: [id number] ? Loc: NELI ? Status: REG REF ?? Reg Date: 02/13/19 ? Pt.Phone Number : ? Specimen: [id number] ?STA TUS: SOUT ?Spec Date:02/13/19 ? Physician Copies: ?Cassandra Lazo APRN Tissues: ? Cervical/Endo Pap ? CPT: 79994 ?? Units: ??1 ? CYTOLOGY DIAGNOSIS SPECIMEN ADEQUACY: ?Satisfactory for evaluation. Transformation zone component present. GENERAL CATEGORIZATION: ?Negative fo r Intraepithelial Lesion or Malignancy DESCRIPTIVE DIAGNOSIS: ? Negative fo r Intraepithelial Lesion or Malignancy. ORDER QUERIES: LMP: ? - UNK ?Pr egnant? ?? Post ?PREVIOUS ATYPICAL: Y BCP/HRT? ?? Rad Rx? ?? IUD?PAP PL US HPV?REFLEX TO HR-HPV IF ASCUS Y REFLEX TO HPV 16/18 IF HPV POS/PAP NEG ?? HPV REGARDLESS?RFLX HPV IF LSIL ?? Signed Rhianna Nieto CT([facility]) 02/17/19 By the signature above, the attending ph ysician certifies that he/she has personally conducted a gross and/or microscopic exa mination of the described specimens and rendered or confirmed the above diagnosi s. Test Performed by [facility], [address] [place] [address] Delivery Person: Annalisa Garcia MD PHD Performing Organization Address City/State/[facility] Code Phon e Number [facility] [address] [place] [address] LAB documented in this encounter Visit Diagnoses Not on filedocumented in this encounter Care Teams Customer Support Representative Relationship Specialty Start Date End Date Albertina Johnson PA-C PCP - General 10/15/14 [address] [place], [place] [address] documented as of this encounter
--- OUTSIDE RECORDS SUMMARY | 2022-04-22 16:12 | XMS_ITS | Encounter Summary ---
:1996 Author Organization [facility] Address [address] [place] [address] Care Team Providers Name Role Phone Albertina Johnson PA-C Primary Care Provider Encounter Details Date Type Department Care Team Description 05/17/2015 Abstract [facility] ENT - Albertina Johnson PA-C [facility] [address] [facility] [address] [place] [address] [place], [place] [id number] [phone] Social History Tobacco Use Types Packs/Day Years Used Date Passive Smoke Exposure - Never Smoker Sex Assigned at Date Recorded Female 09/16/2021 22:07 EST documented as of this encounter Plan of Treatment Not on filedocumented as of this encounter Visit Diagnoses Not on filedocumented in this encounter Historical Medications This list may reflect changes made after this encounter. Medication Sig Dispensed Refills Start Date End Date amoxicillin (AMOXIL) 500 Take 500 mg by 0 05/19/2015 mg capsule mouth every 12 hours added in this encounter Care Teams Group Billing Coordinator Relationship Specialty Start Date End Date Albertina Johnson PA-C PCP - General 10/15/14 [address] [place] [address] documented as of this encounter
--- OUTSIDE RECORDS SUMMARY | 2022-04-22 16:12 | XMS_ITS | Encounter Summary ---
:1996 Author Organization [facility] Address [address] [place] [address] Care Team Providers Name Role Phone Albertina Johnson PA-C Primary Care Provider Reason for Visit Reason Onset Date Comments Appointment Related 04/26/2020 05.06.20 Encounter Details Date Type Department Care Team Description 04/26/2020 Telephone [facility] Chloe Celis NP Appointment Related Pulmonology & Critical [address] [place] [address] (05.06.20) Care - [facility], [address], [address] [place], [place] [address] [place] [address] [phone] (Wo rk) Social History Tobacco Use Types Packs/Day Years Used Date Passive Smoke Exposure - Never Smoker Smokeless Tobacco: Never Used Alcohol Use Standard Drinks/Week Comments No 0 (1 standard drink = 0.6 oz pure alcoho l) Sex Assigned at Date Recorded Female 09/16/2021 22:07 EST documented as of this encounter Miscellaneous Notes Telephone Encounter - Elsa Freire - 04/27/2020 0856 EDT LMOM with appt info on 07/08 and COVID testing info. Advised to call back if necessary. 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 Please call to reschedule documented in this encounter Plan of Treatment Not on filedocumented as of this encounter Visit Diagnoses Not on filedocumented in this encounter Care Teams Nipple Maker Relationship Specialty Start Date End Date Albertina Johnson PA-C PCP - General 10/15/14 [address] [place] [address] documented as of this encounter
--- OUTSIDE RECORDS SUMMARY | 2022-04-22 16:12 | XMS_ITS | Encounter Summary ---
:1996 Author Organization [facility] Address [address] [place] [address] Care Team Providers Name Role Phone Albertina Johnson PA-C Primary Care Provider Reason for Visit Reason Onset Date Comments Results 09/27/2020 COVID results Encounter Details Date Type Department Care Team Description 09/27/2020 Telephone [facility] Chloe Celis Results (COVID results) Pulmonology & Critical [phone] Care - [facility] (Fax) [address] [place] [address] Social History Tobacco Use Types Packs/Day Years Used Date Passive Smoke Exposure - Never Smoker Smokeless Tobacco: Never Used Alcohol Use Standard Drinks/Week Comments No 0 (1 standard drink = 0.6 oz pure alcoho l) Sex Assigned at Date Recorded Female 09/16/2021 22:07 EST documented as of this encounter Miscellaneous Notes Telephone Encounter - Samantha Card RN - 09/29/2020 0859 EST Called pt to let her know that her COVID test came back negative. elephone Encounter - Mann Mcdonough - 09/27/2020 1621 EST Reason for Call: Results (COVID results) Summary/Symptoms: Patient reaching out to get results of COVID test. Please call back. Mann Mcdonough 09/27/2020 16:22 documented in this encounter Plan of Treatment Not on filedocumented as of this encounter Visit Diagnoses Not on filedocumented in this encounter Care Teams Kettle Operator Relationship Specialty Start Date End Date Albertina Johnson PA-C PCP - General 10/15/[address] [place] [address] documented as of this encounter
--- OUTSIDE RECORDS SUMMARY | 2022-04-22 16:12 | XMS_ITS | Encounter Summary ---
:1995 Author Organization [facility] Address [address] [place] [address] Care Team Providers Name Role Phone Albertina Johnson PA-C Primary Care Provider Reason for Visit Reason Comments Otalgia rt ear approx a couple month s started with virus and wax buildup. took antibiotics. intermittent th robbing symptoms moderate denies other symptoms. hearing seems ok Encounter Details Date Type Department Care Team Description 05/19/2015 Office Visit [facility] ENT Unknown, Provider, Otalgia, unspecified - [place] David Cast MD [address] [place] [address] [address] [place] [address] (Primary Dx) [address] [place] [address] Social History Tobacco Use Types Packs/Day Years Used Date Passive Smoke Exposure - Never Smoker Alcohol Use Standard Drinks/Week Comments No 0 (1 standard drink = 0.6 oz pure alcoho l) Sex Assigned at Date Recorded Female 09/16/2021 22:07 EST documented as of this encounter Last Filed Vital Signs Vital Sign Reading Time Taken Comments Blood Pressure 115/64 05/19/2015 0947 EDT Pulse 85 05/19/2015 0947 EDT Temperature - - Respiratory Rate - - Oxygen Saturation - - Inhaled Oxygen Concentration - - Weight 54.4 kg (120 lb) 05/19/2015 0947 EDT Height 154.9 cm (5' 1) 05/19/2015 0947 EDT Body Mass Index 22.67 05/19/2015 0947 EDT documented in this encounter Progress Notes David Cast MD - 05/19/2015 0958 EDT This is a consult from Albertina Johnson for evaluation of ear pain. HISTORY OF PRESENT ILLNESS: This is an 19-year-old female who 2 months ago developed a right ear infection, was treated with antibiotics and symptoms markedly improved, but she continues to have intermittent throbbing right ear pain of mild severity daily, lasting for minutes at a time, described as asharp or pinching and throbbing type pain. No change in hearing, no tinnitus, vertigo or other ear symptoms. PAST MEDICAL HISTORY: The patient denies any other medical illnesses. PREVIOUS SURGERGIES: Include foot surgery. FAMILY HISTORY: Significant for asthma. SOCIAL HISTORY: The patient is a nonsmoker. ALLERGIES: She has no known drug allergies. CURRENT MEDICATIONS: Include albuterol and Flovent. REVIEW OF SYSTEMS: Otherwise negative for complete review of all systems, including general, respiratory, neurologic, endocrine, eyes, heart, musculoskeletal, psychiatric, hematology, other ear, nose and throat, gastrointestinal, skin, and urinary systems. The patient denies bruxism or TMJ. No historyof neck or whiplash injury, no dental problems or history of reflux as. PHYSICAL EXAM: General: Well-developed, well-nourished, alert, oriented and cooperative 19-year-old female in no acute distress. Vital signs: Height 61 inches, weight 120, blood pressure 115/64, pulse 85. Pain level of 2. The face is normal without lesions. No tenderness to palpation over the sinuses.Salivary glands are normal. Facial strength is symmetric. Eye exam is normal. Ears: External ears are normal. Canals are clear. The tympanic membranes are normal, translucent and mobile. Normal binocular otomicroscopy. An audiogram was performed which reveals normal hearing bilaterally, normal impedance with bilateral type A tympanograms. Nose: Nasal dorsum is midline, the airway is patent. Oral cavity is clear. Posterior pharynx is clear. No TMJ tenderness, clicking or popping. Neck: No pathologic lymphadenopathy. Trachea is midline. Thyroid is normal. Chest is clear to auscultation. Heart regularrate and rhythm. IMPRESSION: Right otalgia of unclear etiology, possible atypical migraine with intermittent throbbing pain without any other ear symptoms. PLAN: Further testing could include a CT scan of the temporal bone. Follow up with ENT p.r.n. for persistent or worsening symptoms. cc: Albertina Johnson documented in this encounter Plan of Treatment Not on filedocumented as of this encounter Procedures Procedure Name Priority Date/Time Associated Diagnosis Comme nts PROCEDURE REPORTS - 05/19/2015 13:21 Resu lts for this SCANNED EDT procedure are i n the results section. documented in this encounter Results PROCEDURE REPORTS - SCANNED (05/19/2015 13:21 EDT) Specimen Narrative This result has an attachment that is no t available. documented in this encounter Visit Diagnoses Diagnosis Otalgia, unspecified - Primary documented in this encounter Discontinued Medications Medication Sig Discontinue Reason Start Date End Date amoxicillin (AMOXIL) 500 Take 500 mg by 0 05/19/2015 mg capsule mouth every 12 hours documented as of this encounter Care Teams Shop Mechanic Helper Relationship Specialty Start Date End Date Albertina Johnson PA-C PCP - General 10/15/14 [address] [place] [address] documented as of this encounter
--- OUTSIDE RECORDS SUMMARY | 2022-04-22 16:12 | XMS_ITS | Encounter Summary ---
:1995 Author Organization [facility] Address [address] [place] [address] Care Team Providers Name Role Phone Albertina Johnson PA-C Primary Care Provider Encounter Details Date Type Department Care Team Description 04/29/2019 Results Only Imaging [facility]- Unknown, [facility] ProviderMD [phone] Social History Tobacco Use Types Packs/Day Years [...] Associated Diagnoses Date/Ti me OUTSIDE IMAGES - MR NEURO Imaging 11:50 EDT documented as of this encounter Visit Diagnoses Not on filedocumented in this encounter Care Teams Wood Fence Installer Relationship Specialty Start Date End Date Albertina Johnson PA-C PCP - General 10/15/14 [address] [place] [address] documented as of this encounter
--- OUTSIDE RECORDS SUMMARY | 2022-04-22 16:12 | XMS_ITS | Encounter Summary ---
:1995 Author Organization [facility] Address [address] [place] [address] Care Team Providers Name Role Phone Albertina Johnson PA-C Primary Care Provider Reason for Referral (Routine) - Order Cancelled Specialty Diagnoses / Procedures Referred By Contact Refer red To Contact Diagnoses Asthma, unspecified asthma severity, unspecified whether complicated, unspecified whether persistent Chloe Celis, FLOORING SALES MANAGER Procedures SPIROMETRY WITH BRONCHODILATOR [address] [facility], [address] [place] [address] Referral ID Status Reason Start Date Expiration Date Visits V isits Requested Authorized [id number] Order 12/27/2018 1 1 Cancelled Encounter Details Date Type Department Care Team Description 12/22/2018 Orders Only [facility] Chloe Celis, Ast hma, unspecified Pulmonology & FLOORING SALES MANAGER asthma severity, Critical Care - Main [address] uns[address] cified whether [address] complicated, [address] [facility] [place] [address] [place], [address] persistent (Primary [phone] [place], [place] Dx) [phone] (Wo rk) Social History [...] First Ordered Date SPIROMETRY WITH BRONCHODILATOR 1 12/22/2018 documented in this encounter Care Teams Freight Forwarder Relationship Specialty Start Date End Date Albertina Johnson PA-C PCP - General 10/15/14 [address] [place] [address] documented as of this encounter
--- OUTSIDE RECORDS SUMMARY | 2022-04-22 16:12 | XMS_ITS | Encounter Summary ---
:1995 Author Organization [facility] Address [address] [place] [address] Care Team Providers Name Role Phone Albertina Johnson PA-C Primary Care Provider Reason for Visit Reason Onset Date Comments Appointment Related 06/26/2020 Encounter Details Date Type Department Care Team Description 06/26/2020 Telephone [facility] Chloe Celis NP Appointment Related Pulmonology & Critical [address] [place] [address], [address] [place], [place] [id number] [place] [address] [phone] (Wo rk) Social History Tobacco Use Types Packs/Day Years Used Date Passive Smoke Exposure - Never Smoker Smokeless Tobacco: Never Used Alcohol Use Standard Drinks/Week Comments No 0 (1 standard drink = 0.6 oz pure alcoho l) Sex Assigned at Date Recorded Female 09/16/2021 22:07 EST documented as of this encounter Miscellaneous Notes Telephone Encounter - Kaylin Palmer - 06/27/2020 0844 EDT Rescheduled and notified patient via letter. elephone Encounter - Will Maldonado - 06/26/2020 1350 EDT PAS Message: Rey called to cancel the following appointments scheduled for 07/08/20: PFT @ 10:00am Clinic appt with Chloe Celis @ 10:30. She said she has just returned to work and doesn't want to quarantine between her COVID test and herprocedure. She wants to plan for this and requests an appointment sometime during the winter. documented in this encounter Plan of Treatment Not on filedocumented as of this encounter Visit Diagnoses Not on filedocumented in this encounter Care Teams Personnel Manager Relationship Specialty Start Date End Date Albertina Johnson PA-C PCP - General 10/15/14 [address] [place] [address] documented as of this encounter
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
--- OUTSIDE RECORDS SUMMARY | 2022-04-22 16:12 | XMS_ITS | Encounter Summary ---
:1995 Author Organization [facility] Address [address] [place] [address] Care Team Providers Name Role Phone Albertina Johnson PA-C Primary Care Provider Reason for Visit Reason Comments Other Encounter Details Date Type Department Care Team Description 09/25/[address] [facility] Herbert Cohen MD Other Pediatric Pulmonary - Main [address] [place] [address] [address] [facility] [place], [place] [id number] [phone] Social History Tobacco Use Types Packs/Day Years [...] on filedocumented in this encounter Care Teams Relationship Manager Relationship Specialty Start Date End Date Albertina Johnson PA-C PCP - General 10/15/14 [address] [place], [place] [id number] documented as of this encounter
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
--- OUTSIDE RECORDS SUMMARY | 2022-04-22 16:12 | XMS_ITS | Encounter Summary ---
:1995 Author Organization [facility] Address [address] [place] [address] Care Team Providers Name Role Phone Albertina Johnson PA-C Primary Care Provider Encounter Details Date Type Department Care Team Description 04/02/2019 Hospital Encounter [facility] - Unknown, [facility] [phone] [place] [address] (Work) [place] [address] Social History Tobacco Use Types Packs/Day Years [...] Code Departure Means Destination Home or Self Senior Living documented in this encounter Plan of Treatment Not on filedocumented as of this encounter Visit Diagnoses Not on filedocumented in this encounter Care Teams Oil Well Drilling Manager Relationship Specialty Start Date End Date Albertina Johnson PA-C PCP - General 10/15/14 [address] [place] [address] documented as of this encounter
--- OUTSIDE RECORDS SUMMARY | 2022-04-22 16:12 | XMS_ITS | Encounter Summary ---
:1995 Author Organization [facility] Address [address] [place] [address] Care Team Providers Name Role Phone Albertina Johnson PA-C Primary Care Provider Reason for Referral (Routine) - Order Cancelled Specialty Diagnoses / Procedures Referred By Contact Refer red To Contact Diagnoses Asthma, unspecified asthma severity, unspecified whether complicated, unspecified whether persistent Chloe Celis, COMMERCIAL AGENT Procedures SPIROMETRY WITH BRONCHODILATOR [address] [facility], [address] [place] [address] Referral ID Status Reason Start Date Expiration Date Visits V isits Requested Authorized [id number] Order 09/28/2018 1 1 Cancelled Encounter Details Date Type Department Care Team Description 09/23/2018 Orders Only [facility] Chloe Celis, Ast hma, unspecified Pulmonology & COMMERCIAL AGENT asthma severity, Critical Care - Main [address] [place] unspe cified whether [address] complicated, 111 [facility] [place] [address] [place], [address] persistent (Primary [phone] [place], [place] Dx) [phone] (Wo rk) Social History [...] First Ordered Date SPIROMETRY WITH BRONCHODILATOR 1 09/23/2018 documented in this encounter Care Teams Doctor Of Radiology Relationship Specialty Start Date End Date Albertina Johnson PA-C PCP - General 10/15/14 [address] [place] [address] documented as of this encounter
--- OUTSIDE RECORDS SUMMARY | 2022-04-22 16:12 | XMS_ITS | Encounter Summary ---
:1995 Author Organization [facility] Address [address] [place] [address] Care Team Providers Name Role Phone Albertina Johnson PA-C Primary Care Provider Reason for Visit (Routine) - Authorization Not Required Specialty Diagnoses / Procedures Referred By Contact Refer red To Contact Diagnoses Moderate persistent asthma, unspecified whether complicated Chloe Celis, SACK SEWER Procedures PULMONARY FUNCTION TESTING [address] [facility], [address] [place] [address] Referral ID Status Reason Start Expiration Visits Visits Date Date Requested Authorized [id number] Authorization Not 09/30/2019 1 1 Required Encounter Details Date Type Department Care Team Description 07/08/2020 Hospital Encounter [facility] Can celed (Patient) Pulmonary Function Lab - [facility] [address] [place] [address] Social History Tobacco Use Types Packs/Day Years [...] couple of months. fluticasone (VERAMYST) Instill 1 [place] into 0 27.5 mcg/actuation nasal both nostrils [...] budesonide-formoterol Inhale 2 Puffs as 1 Inhaler 11 019 09/30/2020 HFA (SYMBICORT) 160-4.5 directed 2 times mcg/actuation HFA daily. aerosol inhaler inhaler budesonide-formoterol Inhale 2 Puffs as 1 Inhaler 11 019 09/30/2020 HFA (SYMBICORT) 80-4.5 directed 2 times mcg/actuation [...] 09/30/2020 documented in this encounter Care Teams Manager Government Relationship Specialty Start Date End Date Albertina Johnson PA-C PCP - General 10/15/14 [address] [place] [address] documented as of this encounter
--- OUTSIDE RECORDS SUMMARY | 2022-04-22 16:12 | XMS_ITS | Encounter Summary ---
:1996 Author Organization [facility] Address [address] [place] [address] Care Team Providers Name Role Phone Albertina Johnson PA-C Primary Care Provider Reason for Visit Reason Onset Date Comments Other 09/23/2020 Covid-19 Call Center Labs Only 09/23/2020 09/24/20 10:30am Encounter Details Date Type Department Care Team Description 09/23/2020 Telephone [facility] Tejal Quinn RN Other (C ovid-19 Call [facility] - [address]); Labs Only [facility] ( 10:30am) Center - Mobile Testing Department [address] [place] [address] Social History Tobacco Use Types Packs/Day Years Used Date Passive Smoke Exposure - Never Smoker Smokeless Tobacco: Never Used Alcohol Use Standard Drinks/Week Comments No 0 (1 standard drink = 0.6 oz pure alcoho l) Sex Assigned at Date Recorded Female 09/16/2021 22:07 EST documented as of this encounter Miscellaneous Notes Telephone Encounter - Anum Kebede - 09/23/2020 1654 EST ..C-19 screening recommended by provider. Routed for testing ordering. Vehicle: gabriel Color: white Cell #: [phone] Spoke to patient and verbally gave instructions for Testing Facility. Patient is instructed to be there at 10:30am sharp on 09/24/20. elephone Encounter - Tejal Quinn RN - 09/23/2020 8008 EST Call received from Lana at [facility] scheduling. She states that this patient has a procedure scheduled on 09/30/20 and needs a Covid-19 test tomorrow. documented in this encounter Plan of Treatment Not on filedocumented as of this encounter Visit Diagnoses Not on filedocumented in this encounter Care Teams Fine Jewelry Sales Associate Relationship Specialty Start Date End Date Albertina Johnson PA-C PCP - General 10/15/14 [address] [place] [address] documented as of this encounter
--- OUTSIDE RECORDS SUMMARY | 2022-04-22 16:12 | XMS_ITS | Encounter Summary ---
:1995 Author Organization [facility] Address [address] [place] [address] Care Team Providers Name Role Phone Albertina Johnson PA-C Primary Care Provider Encounter Details Date Type Department Care Team Description 04/02/2019 Historical Results [facility] Ilan Bautista MD Only [facility] [address] [facility] Results [facility] [address] [place] [phone] (Wo rk) Social History Tobacco Use Types [...] Name Priority Date/Time Associated Diagnosis Comme nts MR LUMBAR SPINE WO 04/02/2019 15:13 Resul ts for this CONTRAST EDT procedure are i n the results section. documented in this encounter Results MR LUMBAR SPINE WO CONTRAST (04/02/2019 15:13 EDT) Specimen Narrative RADIOLOGY - 04/02/2019 15:16 EDT ? EXAM: MAGNETIC RESONANCE IMAGING/LUMBAR S EX. D/ (1458) ? CLINICAL INFORMATION: ? M54.5 BILATERAL LOW BACK PAIN RAD IATING TO ? BILATERAL THIGHS > 4 MOS ? EVALUATE FOR LUMBAR STENOSIS ? INDICATION: M54.5 BILATERAL LOW B ACK PAIN RADIATING TO, BILATERAL ? THIGHS > 4 MOS, EVALUATE FOR LUMB AR STENOSIS BILATERAL LBP RADIATING ? TO BILATERAL THIGH X4 MO. ? TECHNIQUE: ??Multiplanar multiseq uence MR imaging of the lumbar spine ? was obtained without contrast. ? COMPARISON: None. ? FINDINGS: The lumbar spine is wel l aligned. The lumbar vertebral ? bodies maintain normal height. Th e paraspinal soft tissues are normal ? in appearance. The tip of the con us medullaris terminates at the L1 ? vertebral body level. ? At the L5/S1 level, minimal degen erative facet disease is noted and ? there is a minimal disc bulge wit h very mild bilateral neural ? foraminal narrowing. There is min imal spinal canal narrowing. ? At the L4/5 level, there is a bogdan y small disc bulge and degenerative ? facet disease with mild spinal ca nal and mild bilateral neural ? foraminal narrowing. ? At the L3/4 level, there is very early degenerative facet disease and ? a minimal eccentric left disc bul ge with mild left neural foraminal ? narrowing. The spinal canal and r ight neural foramen are patent. ? At the L2/3 level, the spinal can al and neural foramen are patent. ? At the L1/2 level, the spinal can al and neural foramen are patent. ? IMPRESSION: ? 1. Very early lower lumbar spine degenerative disc and facet disease, ? including very mild spinal canal and very mild bilateral neural ? foraminal narrowing at L4/5 and L 5/S1. No spinal canal compromise or ? focal nerve root impingement is s een. ? Additional findings as discussed above. ? REPORT SIGNED IN OTHER VENDOR SYSTEM 04/02/2019 ?Reported B y: Jose Ba MD ? CC: ? Transcribed Date/Time: 04/02/2019 (1516) ? Cube Cutter: HIS.POWSCR ? Printed Date/Time: 07/15/2019 (13 41) ? PAGE 1 ? Mickie d Report ? Procedure Note Jose Ba MD - 09/01/2019 EXAM: MAGNETIC RESONANCE IMAGING/LUMBAR S EX. D/ (1458) CLINICAL INFORMATION: M54.5 BILATERAL LOW BACK PAIN RADIATING TO BILATERAL THIGHS > 4 MOS EVALUATE FOR LUMBAR STENOSIS INDICATION: M54.5 BILATERAL LOW BACK PA IN RADIATING TO, BILATERAL THIGHS > 4 MOS, EVALUATE FOR LUMBAR [place] NOSIS BILATERAL LBP RADIATING TO BILATERAL THIGH X4 MO. TECHNIQUE: Multiplanar multisequence MR imaging of the lumbar spine was obtained without contrast. COMPARISON: None. FINDINGS: The lumbar spine is well alig brandon. The lumbar vertebral bodies maintain normal height. The para spinal soft tissues are normal in appearance. The tip of the conus med ullaris terminates at the L1 vertebral body level. At the L5/S1 level, minimal degenerativ e facet disease is noted and there is a minimal disc bulge with very mild bilateral neural foraminal narrowing. There is minimal s jerad canal narrowing. At the L4/5 level, there is a very smal l disc bulge and degenerative facet disease with mild spinal canal an d mild bilateral neural foraminal narrowing. At the L3/4 level, there is very early degenerative facet disease and a minimal eccentric left disc bulge wit h mild left neural foraminal narrowing. The spinal canal and right n eural foramen are patent. At the L2/3 level, the spinal canal and neural foramen are patent. At the L1/2 level, the spinal canal and neural foramen are patent. IMPRESSION: 1. Very early lower lumbar spine degene rative disc and facet disease, including very mild spinal canal and ve ry mild bilateral neural foraminal narrowing at L4/5 and L5/S1. No spinal canal compromise or focal nerve root impingement is seen. Additional findings as discussed above. REPORT SIGNED IN OTHER VENDOR SYSTEM 04/02/2019 Reported By: Jose Ba MD CC: Transcribed Date/Time: 04/02/2019 (1135 ) Cube Cutter: Printed Date/Time: 07/15/2019 (6499) PAGE 1 Signed Report Performing Organization Address City/State/ZIP Code Phon e Number RADIOLOGY documented in this encounter Visit Diagnoses Not on filedocumented in this encounter Care Teams Restaurant General Manager Relationship Specialty Start Date End Date Albertina Johnson PA-C PCP - General 10/15/14 [address] [place] [address] documented as of this encounter
--- OUTSIDE RECORDS SUMMARY | 2022-04-22 16:12 | XMS_ITS | Encounter Summary ---
:1996 Author Organization [facility] Address [address] [place] [address] Care Team Providers Name Role Phone Albertina Johnson PA-C Primary Care Provider Reason for Visit Reason Onset Date Comments Appointment Related 01/27/2018 reschedule 6.7.18 Encounter Details Date Type Department Care Team Description 01/27/2018 Telephone [facility] Chloe Celis NP Appointment Related Pulmonology & Critical [address] [place] [address] (reschedule 6.7.18) Care - [facility], [address], [address] [place], [place] [address] [place] [address] [phone] (Wo rk) Social History Tobacco Use Types Packs/Day Years Used Date Passive Smoke Exposure - Never Smoker Smokeless Tobacco: Never Used Alcohol Use Standard Drinks/Week Comments No 0 (1 standard drink = 0.6 oz pure alcoho l) Sex Assigned at Date Recorded Female 09/16/2021 22:07 EST documented as of this encounter Miscellaneous Notes Telephone Encounter - Kamala Baltazar - 01/27/2018 1217 EDT Patient will keep the 04/03 appointment. elephone Encounter - Amena Lomeli - 01/27/2018 1205 EDT Reason for Call: Appointment Related (reschedule ..) Summary/Symptoms: Please reschedule appt & lab .7.18; must be a Saturday, has every other off Amena Lomeli 01/27/2018 12:06 documented in this encounter Plan of Treatment Not on filedocumented as of this encounter Visit Diagnoses Not on filedocumented in this encounter Care Teams Hemmer Chainstitch Relationship Specialty Start Date End Date Albertina Johnson PA-C PCP - General 10/15/14 [address] [place] [address] documented as of this encounter
--- OUTSIDE RECORDS SUMMARY | 2022-04-22 16:12 | XMS_ITS | Encounter Summary ---
:1996 Author Organization [facility] Address [address] [place] [address] Care Team Providers Name Role Phone Albertina Johnson PA-C Primary Care Provider Reason for Referral (Routine) - New Request Specialty Diagnoses / Procedures Referred By Contact Refer red To Contact Diagnoses Asthma, unspecified asthma severity, unspecified whether complicated, unspecified whether persistent Chloe Celis, SEARCH STRATEGIST Procedures SPIROMETRY [address] [facility], [address] [place] [address] Referral ID Status Reason Start Date Expiration Date Visits V isits Requested Authorized [id number] New Request 07/12/2019 1 1 Encounter Details Date Type Department Care Team Description 07/07/2019 Orders Only [facility] Chloe Celis, Ast hma, unspecified Pulmonology & SEARCH STRATEGIST asthma severity, Critical Care - Main [address] [place] unspe cified whether [address] complicated, [address] [facility] [place] [address] [place], Level [address] persistent (Primary [phone] [place], [place] Dx) [phone] (Wo rk) Social History [...] Last Ordered Date First Ordered Date SPIROMETRY 1 07/07/2019 documented in this encounter Care Teams Claims Director Relationship Specialty Start Date End Date Albertina Johnson PA-C PCP - General 10/15/14 [address] [place] [address] documented as of this encounter
--- OUTSIDE RECORDS SUMMARY | 2022-04-22 16:12 | XMS_ITS | Encounter Summary ---
:1996 Author Organization [facility] Address [address] [place] [address] Care Team Providers Name Role Phone Albertina Johnson PA-C Primary Care Provider Reason for Visit Reason Onset Date Comments Pharmacy 10/02/2019 Encounter Details Date Type Department Care Team Description 10/02/2019 Telephone [facility] Chloe Celis, CAREER AGENT Pharmacy Pulmonology & Critical Care [address] [place] [address], [address], [address] [place], [place] [address] [place] [phone] (Wo rk) Social History Tobacco Use Types Packs/Day Years Used Date Passive Smoke Exposure - Never Smoker Smokeless Tobacco: Never Used Alcohol Use Standard Drinks/Week Comments No 0 (1 standard drink = 0.6 oz pure alcoho l) Sex Assigned at Date Recorded Female 09/16/2021 22:07 EST documented as of this encounter Miscellaneous Notes Telephone Encounter - Edie Tracey RT - 10/02/2019 1208 EST Per Chloe's note, Alisaty will be taking the Symbicort 160/4.5 until warmer weather, then in the Spring will be decreasing down to the 80/4.5. Explained this to VICTORINA Colindres at [facility] and she made a note on Kassity chart to clarify this. RT KAYLEEN elephone Encounter - Dayne Lees - 10/02/2019 1001 EST Please call ruchi to confirm which symbicort they are supposed to fill as they got two scripts. documented in this encounter Plan of Treatment Not on filedocumented as of this encounter Visit Diagnoses Not on filedocumented in this encounter Care Teams Publication Distributor Relationship Specialty Start Date End Date Albertina Johnson PA-C PCP - General 10/15/14 [address] [place] [address] documented as of this encounter
--- OUTSIDE RECORDS SUMMARY | 2022-04-22 16:12 | XMS_ITS | Encounter Summary ---
:1995 Author Organization [facility] Address [address] [place] [address] Care Team Providers Name Role Phone Albertina Johnson PA-C Primary Care Provider Encounter Details Date Type Department Care Team Description 07/29/2018 Historical Results Only [facility] - Sadaf Baird, [facility] [place] DIRECTOR DIETETICS DEPARTMENT [address] [place], [place] [id number] [place] [address] RO[address] [place], [place] [address] Social History Tobacco Use Types Packs/Day Years [...] Name Priority Date/Time Associated Diagnosis Comme nts GC/CHLAMYDIA PCR - Routine 07/29/2018 12:19 Resul ts for this [facility] [place] procedure are i n the results section. BACTERIAL CULTURE, Routine 07/29/2018 12:19 Resul ts for this URINE EDT procedure are i n the results section. documented in this encounter Results BACTERIAL CULTURE, URINE (07/29/2018 12:19 EDT) ESCHERIACHIA COLI - [facility] ESCHERICHIA COLI [facility] CitrateConcentration >100,000 CFU/ML [facility] Specimen Organism Antibiotic Method Susceptibility Escherichia coli Ampicillin Sulbactam GRAM NEGATIVE 4: Suscept ible SUSCEPTIBILITY - [facility] Escherichia coli Ampicillin GRAM NEGATIVE >=32: Resistant SUSCEPTIBILITY - [facility] Escherichia coli Amoxicillin Clavulanic GRAM NEGATIVE <=2: Belén ceptible acid SUSCEPTIBILITY - [facility] Escherichia coli Ceftriaxone GRAM NEGATIVE <=1: Susceptibl e SUSCEPTIBILITY - [facility] Escherichia coli Cefazolin GRAM NEGATIVE 8: Susceptible SUSCEPTIBILITY - [facility] Escherichia coli Ciprofloxacin GRAM [...] Organization Address City/State/ZIP Code Phon e Number [facility] [address] [place] [address] [facility] GC/CHLAMYDIA PCR - CV (07/29/2018 12:19 EDT) Pathologist Sig nature CHLAMYDIA PCR - CV NOT DETECTED [facility] GONORRHEA PCR - [facility] NOT DETECTED [facility] SOURCE VAGINAL [facility] Specimen Performing Organization Address City/State/ZIP Code Phon e Number [facility] [address] [place] [address] [facility] documented in this encounter Visit Diagnoses Not on filedocumented in this encounter Care Teams Supervisor Paint Department Relationship Specialty Start Date End Date Albertina Johnson PA-C PCP - General 10/15/14 [address] [place] [address] documented as of this encounter
--- OUTSIDE RECORDS SUMMARY | 2022-04-22 16:12 | XMS_ITS | Encounter Summary ---
:1996 Author Organization [facility] Address [address] [place] [address] Care Team Providers Name Role Phone Albertina Johnson PA-C Primary Care Provider Encounter Details Date Type Department Care Team Description 05/24/2020 Lab Requisition [facility] Cassandra Lazo Enco unter for other Pathology & QUALITY ASSOCIATE general examination Laboratory Medicine - [address] [place], [place] [address] [facility] [phone] [place] [address] Social History Tobacco Use Types [...] Name Priority Date/Time Associated Diagnosis Comme nts PAP TEST Today 05/23/2020 10:46 EDT Results for this procedure are i n the results section . documented in this encounter Results PAP TEST (05/23/2020 10:46 EDT) Specimens A. Cervix and/or [facility] Endocervix , ThinPrep CENTER Imaging System with LABORATORY Manual Evaluation SERVICES Specimen Adequacy Satisfactory for [facility] Evaluation - CENTER transformation zone LABORATORY component present SERVICES General Negative for [facility] Categorization intraepithelial CENTER lesion or malignancy LABORATORY SERVICES Descriptive Fungal organisms [facility] Diagnosis present CENTER morphologically LABORATORY consistent with SERVICES Selina species. Attestation . [facility] Electronically CENTER signed by Juvenal florentino LABORATORY NESHA Rojas(A SCP) SERVICES on 06/06/2020 at 1012 Clinical History SEE ORDER COMMENT [facility] LABORATORY SERVICES Scanned Images [facility] LABORATORY SERVICES Specimen Pap Test - Cervix and/or Endocervix Performing Organization Address City/State/ZIP Code Phon e Number [facility] [address] [place] [address] SERVICES documented in this encounter Visit Diagnoses Diagnosis Encounter for other general examination documented in this encounter Care Teams Geographical Historian Relationship Specialty Start Date End Date Albertina Johnson PA-C PCP - General 10/15/14 [address] [place] [address] documented as of this encounter
--- OUTSIDE RECORDS SUMMARY | 2022-04-22 16:12 | XMS_ITS | Encounter Summary ---
:1995 Author Organization [facility] Address [address] [place] [address] Care Team Providers Name Role Phone Albertina Johnson PA-C Primary Care Provider Encounter Details Date Type Department Care Team Description 04/03/2018 Hospital Encounter [facility] - Varsha Del Toro, [facility] PA [address] [facility] [address] [place] [address] [place], [place] [phone] (Wo rk) Social History Tobacco Use Types Packs/Day Years Used Date Passive Smoke Exposure - Never Smoker Smokeless Tobacco: Never Used Alcohol Use Standard Drinks/Week Comments No 0 (1 standard drink = 0.6 oz pure alcoho l) Sex Assigned at Date Recorded Female 09/16/2021 22:07 EST documented as of this encounter Discharge Diagnoses Diagnosis M54.5 Low back pain-M54.5[ICD-10-CM] M25.852 Other specified joint disorders, left hip-M25.852[ICD-10-CM] M25.851 Other specified joint disorders, right hip-M25.851[ICD-10-CM] documented in this encounter Medications at Time [...] times mcg/actuation HFA aerosol daily. inhaler inhaler UNABLE TO FIND daily. Med Name: 0 10/28 Oral Control documented as of this encounter Discharge Disposition Disposition Code Departure Means Destination Auto Discharge Home documented in this encounter Plan of Treatment Not on filedocumented as of this encounter Visit Diagnoses Not on filedocumented in this encounter Care Teams Lockstitch Coat Joiner Relationship Specialty Start Date End Date Albertina Johnson PA-C PCP - General 10/15/14 [address] [place] [address] documented as of this encounter
--- OUTSIDE RECORDS SUMMARY | 2022-04-22 16:12 | XMS_ITS | Encounter Summary ---
:1996 Author Organization [facility] Address [address] [place] [address] Care Team Providers Name Role Phone Albertina Johnson PA-C Primary Care Provider Encounter Details Date Type Department Care Team Description 01/29/2018 Historical Results [facility] - Albertina Johnson , Only [facility] - Main [facility] [address] [facility] [address] [place], [place] [address] [place] [address] [phone] Social History Tobacco Use Types Packs/Day Years [...] Procedure Name Priority Date/Time Associated Comments Diagnosis GC/CHLAMYDIA PCR - Routine 01/29/2018 18:40 Resul ts for this [facility] EDT procedure are i n the results section. VITAMIN D 25 POC - Routine 01/29/2018 11:47 Resul ts for this [facility] EDT procedure are i n the results section. LIPID PANEL POC - [facility] Routine 01/29/2018 11:47 R esults for this EDT procedure are i n the results section. COMPREHENSIVE Routine 01/29/2018 11:47 Results fo r this METABOLIC POC - [facility] EDT procedu re are in the results section. THYROID STIM HORMONE Routine 01/29/2018 11:47 Res ults for this POC - [facility] EDT procedure are i n the results section. CBC W/PLT & DIFF,POINT Routine 01/29/2018 11:47 R esults for this OF [facility] - [facility] EDT procedure are in the results section. POCT CHOLESTEROL LDL Routine 01/29/2018 11:47 Res ults for this ([facility]) EDT procedure are i n the results section. PAP TEST Routine 01/29/2018 Results for thi s procedure are i n the results section. documented in this encounter Results GC/CHLAMYDIA PCR - [facility] (01/29/2018 18:40 EDT) Pathologist Sig nature CHLAMYDIA PCR - [facility] NOT DETECTED [facility] GONORRHEA PCR - [facility] NOT DETECTED [facility] SOURCE CERVIX [facility] Specimen Narrative [facility] - 018 16:16 EDT Does PT Have a Latex Allergy? NO Performing Organization Address City/Va Hospital/ZIP Code Phon e Number [facility] [address] LAB VITAMIN D 25 POC - [facility] (01/29/2018 11:47 EDT) Pathologist Sig nature VIT D, 25 HYDROXY - 30 30 - 100 NG/ML [facility] CENTER LAB Specimen Performing Organization Address City/Va Hospital/ZIP Code Phon e Number [facility] [address] LAB THYROID STIM HORMONE POC - [facility] (01/29/2018 11:47 EDT) Pathologist Sig nature THYROID STIM HORMONE 2.33 0.45 - 5.33 [facility] UIU/ML CENTER LAB Specimen Performing Organization Address City/Va Hospital/ZIP Code Phon e Number [facility] [address] LAB (ABNORMAL) LIPID PANEL POC - [facility] (01/29/2018 11:47 EDT) Pathologist Sig nature Triglyceride 141 0.00 - 150.00 MG/DL [facility] Cholesterol 151 0.00 - 200.00 MG/DL [facility] HDL 70 (H) 40.00 - 60.00 MG/DL [facility] Specimen Performing Organization Address City/Va Hospital/[facility] Code Phon e Number [facility] [address] LAB (ABNORMAL) POCT CHOLESTEROL LDL ([facility]) (01/29/2018 11:47 EDT) Pathologist Sig nature LDL CHOLESTEROL - [facility] 53 (L) 60 - 100 MG/DL [facility] Specimen Performing Organization Address City/Va Hospital/[facility] Code Phon e Number [facility] [address] LAB (ABNORMAL) COMPREHENSIVE METABOLIC POC - [facility] (01/29/2018 11:47 EDT) Pathologist Sig nature ALBUMIN - [facility] 4.0 3.50 - 5.00 [facility] G/DL [place] [facility] ALKALINE PHOSPHATASE - 63 38.00 - 126.00 [facility] U/L [place] [facility] BILIRUBIN TOTAL 0.5 0.20 - 1.30 [facility] MG/DL [place] [facility] BUN - [facility] 12 7.00 - 20.00 [facility] MG/DL [place] [facility] CALCIUM - [facility] 9.5 8.50 - 10.50 [facility] MG/DL [place] [facility] Chloride 104 98.00 - 107.00 [facility] MMOL/L [place] [facility] CO2 Total 24 22.00 - 30.00 [facility] MMOL/L [place] [facility] CREATININE 0.6 (L) 0.70 - 1.50 [facility] MG/DL [place] [facility] Anion Gap 11 7 - 17 MMOL/L [facility] GLUCOSE - [facility] 86 70.00 - 100.00 [facility] MG/DL [place] [facility] Potassium 4.0 3.50 - 5.10 [facility] MMOL/L [place] [facility] Sodium 139 137.00 - 145.00 [facility] MMOL/L [place] [facility] TOTAL PROTEIN - [facility] 7.1 6.30 - 8.20 [facility] G/DL [place] [facility] SGOT/AST - [facility] 19 15.00 - 46.00 [facility] U/L [place] [facility] SGPT/ALT - [facility] 21 13.00 - 69.00 [facility] U/L [place] [facility] Specimen Performing Organization Address City/Va Hospital/ZIP Code Phon e Number [facility] [address] LAB (ABNORMAL) CBC W/PLT & DIFF,POINT OF CARE - [facility] (01/29/2018 11:47 EDT) Pathologist Sig nature Gran # 7.0 (H) 1.4 - 6.5 [facility] X10E3/UL [place] [facility] GRAN % - [facility] 74.4 42.2 - 75.2 % [facility] HEMATOCRIT - [facility] 40.4 35.0 - 60.0 % [facility] HEMOGLOBIN - [facility] 13.9 11.0 - 18.0 [facility] G/DL [place] [facility] LYMPH # - [facility] 2.2 1.2 - 3.4 [facility] X10E3/UL [place] [facility] LYMPH% - [facility] 23.9 20.5 - 51.1 % [facility] MEAN CORPUSCULAR HGB - 31.0 27.0 - 31.0 PG [facility] LAB MEAN CORPUSCULAR HGB 34.4 33.0 - 37.0 [facility] CONC [facility] G/DL [place] [facility] MEAN CELL VOLUME - 89.9 80.0 - 99.9 FL [facility] MONO # - [facility] 0.2 0.1 - 0.6 [facility] X10E3/UL [place] [facility] MONO% - [facility] 1.7 1.7 - 9.3 % [facility] MEAN PLATELET VOLUME - 9.0 7.8 - 11.0 FL [facility] M ED [facility] CENTER LAB PLATELET COUNT 320 150 - 450 [facility] X10E3/UL [place] [facility] RED BLOOD COUNT - [facility] 4.50 4.00 - 6.00 [facility] D X10E6/UL [place] [facility] RED CELL DISTRI WIDTH 12.3 11.6 - 13.7 % [facility] D [facility] LAB WHITE BLOOD COUNT - 9.4 4.5 - 10.5 [facility] X10E3/UL [place] [facility] Specimen Performing Organization Address City/State/ZIP Code Phon e Number [facility] [address] [place], [place] [address] [place] [address] LAB PAP TEST (01/29/2018) Specimen Narrative [facility] - 018 10:26 EDT Name: REY MICHAEL ? : [birth year] ?Age/Sex: 23/F ?Unit#: [id number] ? Loc: LAB.OPX ? Status: REG REF ?? Reg Date: 01/29/18 ? Pt.Phone Number : ? Specimen: [id number] ?MAAME BLISS: CHACHA ?Spec Date:01/29/18 ? Physician Copies: ?Albertina Johnson ?? Tissues: ? Cervical/Endo Pap ? CPT: 94997 ?? Units: ??1 ? CYTOLOGY DIAGNOSIS SPECIMEN ADEQUACY: ?Satisfactory for evaluation. Transformation zone component ABSENT. GENERAL CATEGORIZATION: ?Epithelial Cell Abnormality. 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 ?Fungal organisms present morpho logically consistent with Selina species. RECOMMENDATIONS/COMMENTS: ??Recommend liborio erickson the Updated consensus guidelines algorithms for managing abnormal cervical cancer sc reening tests and cancer precursors Management algorithms have been distributed and are also available online at www.ASCCP.org/consensus.shtml. ORDER QUERIES: LMP: ? - ? Post ?PREVIOUS ATYPICAL: ?? BCP/HRT? ?? Rad Rx? ?? IUD?PAP PL US HPV?REFLEX TO HR-HPV IF ASCUS Y REFLEX TO HPV 16/18 IF HPV POS/PAP NEG ?? HPV REGARDLESS?RFLX HPV IF LSIL ?? Signed ____(signature on file)____ Kenny Brody 02/05/18 ?? By the signature above, the attending ph ysician certifies that he/she has personally conducted a gross and/or microscopic exa mination of the described specimens and rendered or confirmed the above diagnosi s. Test Performed by [facility], [address] [place], [place] [id number] Seo Strategist: Annalisa Garcia MD PHD Performing Organization Address City/State/ZIP Code Phon e Number [facility] [address] [place], [place] [id number] [place] [address] LAB documented in this encounter Visit Diagnoses Not on filedocumented in this encounter Care Teams Senior Data Modeler Relationship Specialty Start Date End Date Albertina Johnson PA-C PCP - General 10/15/14 [address] [place], [place] [address] documented as of this encounter
--- OUTSIDE RECORDS SUMMARY | 2022-04-22 16:12 | XMS_ITS | Encounter Summary ---
:1995 Author Organization [facility] Address [address] [place] [address] Care Team Providers Name Role Phone Albertina Johnson PA-C Primary Care Provider Encounter Details Date Type Department Care Team Description 05/23/2020 Results Only [facility] - [facility] Cassandra Nino NP Lab - [facility] [address] [facility] [address] [place] [phone] (Wo rk) Social History Tobacco Use Types [...] Name Priority Date/Time Associated Diagnosis Comme nts [facility] CYTOLOGY - Routine 05/23/2020 10:46 Result s for this [facility] EDT procedure are i n the results section. documented in this encounter Results [facility] CYTOLOGY CONSULT - [facility] (05/23/2020 10:46 EDT) [facility] CYTOLOGY (See below) () [facility] CONSULT - [facility] Comment: [facility] LAB Disclaimers: 1)Reports generated via electronic interface contain o riginal data; however they are lacking the format of the original re port. Caution should be taken when reading/interpreting unfo rmatted reports. 2) ??Please reference the paper report if the text (En d of Report) is not displayed. PAP SPECIMENS A. Cervix and/or Endocervix , ThinPrep Imaging System with Manual Evaluation SWATCH PASTER 2 SPECIMEN ADEQUACY Satisfactory for Evaluation - transformation zone comp onent present SWATCH PASTER 2 GENERAL CATEGORIZATION Negative for intraepithelial lesion or malignancy SWATCH PASTER 2 DESCRIPTIVE DIAGNOSIS Fungal organisms present morphologically consistent wi th Selina species. CYTOLOGY ATTESTATION . at 1012 CLINICAL HISTORY SEE ORDER COMMENT SCANNED IMAGES End of Report Test performed or referred by The [address] [address] Specimen Performing Organization Address City/State/ZIP Code Phon e Number [facility] [address] [place] [address] documented in this encounter Visit Diagnoses Not on filedocumented in this encounter Care Teams Catalogue Maker Relationship Specialty Start Date End Date Albertina Johnson PA-C PCP - General 10/15/14 [address] [place], [place] [id number] documented as of this encounter
--- OUTSIDE RECORDS SUMMARY | 2022-04-22 16:12 | XMS_ITS | Encounter Summary ---
:1995 Author Organization [facility] Address [address] [place] [address] Care Team Providers Name Role Phone Albertina Johnson PA-C Primary Care Provider Encounter Details Date Type Department Care Team Description 09/24/2020 Results Only [facility] Chloe Celis NP Pulmonology & Critical [address] [place] [address], Level 5 [place], [place] [address] [place] [address] [phone] (Wo rk) Social History Tobacco Use [...] Priority Date/Time Associated Diagnosis Comme nts COVID-19 TESTING Routine 09/24/2020 10:10 EST Res ults for this procedure are i n the results section. documented in this encounter Results COVID-19 TESTING (09/24/2020 10:10 EST) Performing Lab [facility] Comment: [facility] Please indicate the Triage Tiertier 2 Test performed or referred by The [address] [address] COVID-19 rt-PCR Not Detected Negative [facility] Result Comment: MED CENTER LAB Negative results do not preclude 2019-nCoV infection a nd should not be used as the sole basis for treatment or other patient management decisions. Negative results must be combined with clinical observations, patient history, and epidemiological information. This test was developed and its performance characteri stics determined by [facility]. It has not been cleared or approv ed by the US Food and Drug Administration. FDA does not requ danie this test to go through premarket FDA review. This joo t is used for clinical purposes. It should not be regarded as investigational or for research. This laboratory is certified under the Clinical Laboratory Improvement Amendments (CLIA) as qualified to perform high complex ity clinical laboratory testing. This test is based on the CDC COVID-19 Emergency Use Authorization (EUA) assay, with minor modification as defined by the FDA Performed on the AnyPresenceo 7 Flex . Specimen Performing Organization Address City/State/ZIP Code Phon e Number [facility] [address] [place] [address] documented in this encounter Visit Diagnoses Not on filedocumented in this encounter Care Teams Band Saw Filer Relationship Specialty Start Date End Date Albertina Johnson PA-C PCP - General 10/15/14 [address] [place] [address] documented as of this encounter
--- OUTSIDE RECORDS SUMMARY | 2022-04-22 16:12 | XMS_ITS | Encounter Summary ---
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 See complete report in scanned documents. documented in this encounter Plan of Treatment Not on filedocumented as of this encounter Procedures Procedure Name Priority Date/Time Associated Diagnosis Comme nts PULMONARY FUNCTION REPORT 05/05/2018 6:56 EDT - SCANNED PULMONARY FUNCTION REPORT 04/03/2018 10:35 EDT - SCANNED documented in this encounter Visit Diagnoses Diagnosis Asthma, unspecified asthma severity, uns pecified whether complicated, unspecified whether persistent documented in this encounter Administered Medications Inactive Administered Medications - up to 3 most recent administrations Medication Order MAR Action Action Date Dose Rate Site albuterol inhaler 4 Puff Given 04/03/2018 10:15 EDT 4 Puffs 4 Puff, inhalation, ONCE, 1 dose, Starting on Nevaeh 04/03/18 at 1045, Until Nevaeh 04/03/18 at 1015, Routine documented in this encounter Orders Medications Ordered That Might Not Have Count Last Ord ered Date First Ordered Date Been Administered albuterol inhaler 4 Puff 1 04/03/2018 Procedures Count Last Ordered Date First Ordered Date PULMONARY FUNCTION REPORT - SCANNED 2 05/05/2018 04/03/2018 documented in this encounter Care Teams Php Software Engineer Relationship Specialty Start Date End Date Albertina Johnson PA-C PCP - General 10/15/14 [address] [place] [address] documented as of this encounter
--- OUTSIDE RECORDS SUMMARY | 2022-04-22 16:12 | XMS_ITS | Encounter Summary ---
:[address] [facility] Address [address] [place] [address] Care Team Providers Name Role Phone Albertina Johnson PA-C Primary Care Provider Encounter Details Date Type Department Care Team Description 09/21/2020 Transcribe Orders [facility] Chloe Celis , Pre-procedure lab Pulmonology & IT APPLICATIONS MANAGER exam (Primary Dx) Critical Care - [address] [place], [place] Pavilion, Level 5 [address] [place], [place] [phone] Social History Tobacco Use Types Packs/Day Years Used Date Passive Smoke Exposure - Never Smoker Smokeless Tobacco: Never Used Alcohol Use Standard Drinks/Week Comments No 0 (1 standard drink = 0.6 oz pure alcoho l) Sex Assigned at Date Recorded Female 09/16/2021 22:07 EST documented as of this encounter Plan of Treatment Not on filedocumented as of this encounter Visit Diagnoses Diagnosis Pre-procedure lab exam - Primary Pre-procedural laboratory examination documented in this encounter Care Teams Radiologic Technologist Mammogram Relationship Specialty Start Date End Date Albertina Johnson PA-C PCP - General 10/15/14 [address] [place] [address] documented as of this encounter
--- OUTSIDE RECORDS SUMMARY | 2022-04-22 16:12 | XMS_ITS | Encounter Summary ---
:1995 Author Organization [facility] Address [address] [place] [address] Care Team Providers Name Role Phone Albertina Johnson PA-C Primary Care Provider Encounter Details Date Type Department Care Team Description 01/29/2018 Hospital Encounter [facility] - Unknown, [facility] [phone] [place] [address] (Work) [place] [address] Social History Tobacco Use Types Packs/Day Years [...] on filedocumented in this encounter Care Teams Assistant Women'S Soccer Coach Relationship Specialty Start Date End Date Albertina Johnson PA-C PCP - General 10/15/14 [address] [place] [address] documented as of this encounter
--- OUTSIDE RECORDS SUMMARY | 2022-04-22 16:12 | XMS_ITS | Encounter Summary ---
:1995 Author Organization [facility] Address [address] [place] [address] Care Team Providers Name Role Phone Albertina Johnson PA-C Primary Care Provider Reason for Visit Reason Onset Date Comments COVID-19 09/23/2020 Encounter Details Date Type Department Care Team Description 09/23/2020 Telephone [facility] - Chloe Menendez COVID-19 [employer] [address] [place] [address] Social History Tobacco Use Types Packs/Day Years Used Date Passive Smoke Exposure - Never Smoker Smokeless Tobacco: Never Used Alcohol Use Standard Drinks/Week Comments No 0 (1 standard drink = 0.6 oz pure alcoho l) Sex Assigned at Date Recorded Female 09/16/2021 22:07 EST documented as of this encounter Miscellaneous Notes Telephone Encounter - Riccardo Beasley - 09/23/2020 1356 EST Spoke with patient who advised that she would like testing done at [facility] between 09/23 and 09/25. Faxed order and will call to confirm. documented in this encounter Plan of Treatment Not on filedocumented as of this encounter Visit Diagnoses Not on filedocumented in this encounter Care Teams Milk Sampler Relationship Specialty Start Date End Date Albertina Johnson PA-C PCP - General 10/15/14 [address] [place] [address] documented as of this encounter
--- OUTSIDE RECORDS SUMMARY | 2022-04-22 16:12 | XMS_ITS | Encounter Summary ---
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 complicated, [facility], [facility] unspecif ied whether [address] Pavilion, Level 5 persistent [phone] [place] [address] Social History Tobacco Use Types [...] Home documented in this encounter Progress Notes Sean Palomares RT - 01/02/2019 1357 EST Testing was performed and recorded in [employer]. See complete report in scanned documents. documented in this encounter Plan of Treatment Not on filedocumented as of this encounter Procedures Procedure Name Priority Date/Time Associated Diagnosis Comme nts PULMONARY FUNCTION REPORT 01/16/2019 15:53 EDT - SCANNED documented in this encounter Visit Diagnoses Diagnosis Asthma, unspecified asthma severity, uns pecified whether complicated, unspecified whether persistent documented in this encounter Administered Medications Inactive Administered Medications - up to 3 most recent administrations Medication Order MAR Action Action Date Dose Rate Site albuterol inhaler 4 puff Given 01/02/2019 13:54 EST 4 Puffs 4 Puff, inhalation, ONCE, 1 dose, Starting on Sat01/02/19 at 1415, Until Sat01/02/19 at 1354, Routine documented in this encounter Orders Medications Ordered That Might Not Have Count Last Ord ered Date First Ordered Date Been Administered albuterol inhaler 4 puff 1 01/02/2019 Procedures Count Last Ordered Date First Ordered Date PULMONARY FUNCTION REPORT - SCANNED 1 01/19/2019 documented in this encounter Care Teams Photography Spotter Relationship Specialty Start Date End Date Albertina Johnson PA-C PCP - General 10/15/14 [address] [place] [address] documented as of this encounter
--- OUTSIDE RECORDS SUMMARY | 2022-04-22 16:12 | XMS_ITS | Encounter Summary ---
:1995 Author Organization [facility] Address [address] [place] [address] Care Team Providers Name Role Phone Albertina Johnson PA-C Primary Care Provider Reason for Visit Reason Comments Follow-up Encounter Details Date Type Department Care Team Description 04/03/2018 Office Visit [facility] Chloe Celis Mod erate persistent Pulmonology & DRAW HAND asthma without Critical Care - Main [address] [facility] [place] ([address] Dx) [address] [place] [address] Pavilion, [place] [address] (Wo rk) Social History Tobacco [...] Sign Reading Time Taken Comments Blood Pressure 117/73 04/03/2018 1036 EDT Pulse 83 04/03/2018 1036 EDT Temperature 35.6 ??C (96.1 ??F) 04/03/2018 1036 EDT Respiratory Rate 16 04/03/2018 1036 EDT Oxygen Saturation 98% 04/03/2018 1036 EDT Inhaled Oxygen Concentration - - Weight 59 kg (130 lb 1.1 oz) 04/03/2018 1036 EDT Height 157 cm (5' 1.81) 04/03/2018 1036 EDT Body Mass Index 23.94 04/03/2018 1036 EDT documented in this encounter Ordered Prescriptions Prescription Sig Dispensed Refills Start Date End Date budesonide-formoterol HFA Inhale 2 Puffs as 1 Inhaler 04/201801/02/2019 (SYMBICORT) 160-4.5 directed 2 times mcg/actuation HFA aerosol daily. inhaler inhaler budesonide-formoterol HFA Inhale 2 Puffs as 1 Inhaler 04/201804/03/2018 (SYMBICORT) 160-4.5 directed 2 times mcg/actuation HFA aerosol daily. inhaler inhaler documented in this encounter Progress Notes Chloe Celis, DRAW HAND - 04/03/2018 1030 EDT Pulmonary Clinic Follow Up Note Date of Service: 04/03/2018 CC: Chief Complaint Patient presents with ??? Follow-up History of Present Illness: Rey Diaz is a very pleasant 22 y.o. female with a history of moderate persistent asthma who returns to the pulmonary clinic today for follow-up. Since she was last seen in September 2017 she states that overall her breathing has been great. She does note having a cold at the end of the winter which required her to present to an urgent care facility where they administered one nebulizer and instructed her to take her albuterol for 3 days. She quickly recovered from this illness and denies using her albuterol since then. She denies any feelings of limitation. She denies any chronic cough. She admits to some occasional shortness of breath when she goes running but does not feel wheezy or chest ti ghtness associated with this. She has noted some dry throat with the Symbicort use. She admits poor compliance with the Symbicort using it up proximally 4 days a week twice a day. He denies any recent illnesses with fever or chills. She denies any nocturnal awakenings or increased fatigue. 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 She is no longer seeing a gentleman who smoked. Review of Systems: A 12-point review of systems was completed and positive for occasional ear pain, occasional heartburn, muscle aches, back pain, joint pain, otherwise negative aside from what is mentioned [...] aerosol inhaler inhaler inhalational spacing device (AEROCHAMBER) UNABLE TO FIND No current facility-administered medications for this visit. No Known Allergies Objective: Vitals: 04/03/18 1036 BP: 117/73 Pulse: 83 Resp: 16 Temp: 35.6 ??C (96.1 ??F) TempSrc: Tympanic SpO2: 98% Weight: 59 kg (130 lb 1.1 oz) Height: 157 cm (61.81) Physical Examination: General appearance - alert, well [...] normal S1, S2, no murmurs Abdomen - nondistended Neurological - alert, oriented, normal speech, no focal findings Extremities - no clubbing or cyanosis Skin - normal coloration and turgor, no rashes Imaging: No recent imaging of the chest available for review. Diagnostics: Pulmonary Function testing performed today and independently reviewed. FVC 3.64, 103% predicted, 2.79 LLN FEV1 2.47, 79% predicted, 2.50 LLN FEV1/FVC 68%, 77% predicted, 78% LLN Mild airflow limitation without significant improvement following bronchodilator administration. Assessment and Plan: Ms. Diaz is a very pleasant 22-year-old woman with evidence of persistent mild airflow limitation onspirometry. I reviewed the results of her spirometry today with her and have strongly encouraged herto increase her compliance of her Symbicort. I have also increased her dose to 160/4.52 puffs twice a day with diligent spacer and oral hygiene following. I educated her about my concerns of COPD laterin life was under treatment of her current asthma. We discussed the importance of avoiding triggers as well as using her albuterol inhaler when needed. I will plan to see her back in the pulmonary clinic in approximately 6 months with pulmonary function testing at that time. She is aware that she shoul d contact the pulmonary clinic at any time with questions or concerns or changes in her symptomatology. Please do not hesitate to contact me with any questions or concerns. Chloe Celis NP Pulmonary Medicine [facility] Patient discussed with Dr. Carina Arthur This note has been prepared with voice recognition software. Please excuse board turner errors. documented in this encounter Plan of Treatment Not on filedocumented as of this encounter Visit Diagnoses Diagnosis Moderate persistent asthma without compl ication - Primary Unspecified asthma documented in this encounter Discontinued Medications Medication Sig Discontinue Reason Start Date End Date budesonide-formoterol Inhale 2 Puffs as Dose adjustment 10/17/2017 04/03/2018 HFA (SYMBICORT) 80-4.5 directed 2 times mcg/actuation HFA daily. aerosol inhaler inhaler budesonide-formoterol Inhale 2 Puffs as Reorder 04/03/2018 0 04/03/2018 HFA (SYMBICORT) 160-4.5 directed 2 times mcg/actuation HFA daily. aerosol inhaler inhaler documented as of this encounter Historical Medications This list may reflect changes made after this encounter. Medication Sig Dispensed Refills Start Date End Date inhalational spacing Inhale as directed. 0 device (AEROCHAMBER) Use with a metered dose inhaler, as directed. May be dispensed with mask as appropriate. UNABLE TO FIND daily. Med Name: Oral 0 11/09/2019 Control added in this encounter Care Teams Hr Recruiter Relationship Specialty Start Date End Date Albertina Johnson PA-C PCP - General 10/15/14 [address] [place] [address] documented as of this encounter
--- OUTSIDE RECORDS SUMMARY | 2022-04-22 16:12 | XMS_ITS | Encounter Summary ---
:1995 Author Organization [facility] Address [address] [place] [address] Care Team Providers Name Role Phone Albertina Johnson PA-C Primary Care Provider Encounter Details Date Type Department Care Team Description 04/25/[address] [facility] [phone] [place] [address] (Work) [place] [address] Social History Tobacco Use Types Packs/Day Years [...] Code Departure Means Destination Home or Self Correction documented in this encounter Plan of Treatment Not on filedocumented as of this encounter Visit Diagnoses Not on filedocumented in this encounter Care Teams Correctional Supervisor Relationship Specialty Start Date End Date Albertina Johnson PA-C PCP - General 10/15/14 [address] [place] [address] documented as of this encounter
--- OUTSIDE RECORDS SUMMARY | 2022-04-22 16:12 | XMS_ITS | Encounter Summary ---
:1995 Author Organization [facility] Address [address] [place] [address] Care Team Providers Name Role Phone Albertina Johnson PA-C Primary Care Provider Encounter Details Date Type Department Care Team Description 09/30/2019 Hospital Encounter [facility] Ast hma, unspecified Pulmonary Function Lab asthm a severity, - [facility] unspecified whether [address] complicated, [place] [address] unspecified whether [phone] persistent Social History Tobacco Use Types Packs/Day Years [...] Date End Date fluticasone (VERAMYST) Instill 1 [place] into 0 27.5 mcg/actuation nasal both nostrils daily. spray inhalational spacing Inhale as directed. 0 device (AEROCHAMBER) Use with a metered dose inhaler, as directed. May be dispensed with mask as appropriate. medical supply, Knee high 0 01/02/2017 miscellaneous (COMPRESSION STOCKINGS MISC) metoprolol (LOPRESSOR) 25 Take 25 mg by mouth 0 mg tablet daily as needed. montelukast (SINGULAIR) Take 1 Tab by mouth 30 Tab 11 01/2019 10 mg tablet every evening. MULTIVITAMIN ORAL Take by mouth. 0 albuterol (PROAIR HFA) 90 Inhale 1-2 Puffs as 1 Inhaler 11 12/01/2018 10/10/2020 mcg/actuation inhaler directed every 4 hours as needed for Wheezing. Max: 12 puffs/day. budesonide-formoterol HFA Inhale 2 Puffs as 1 Inhaler 11 01/201909/30/2020 (SYMBICORT) 160-4.5 directed 2 times mcg/actuation HFA aerosol daily. inhaler inhaler budesonide-formoterol HFA Inhale 2 Puffs as 1 Inhaler 11 01/201909/30/2020 (SYMBICORT) 80-4.5 directed 2 times mcg/actuation HFA aerosol daily. inhaler inhaler norgestimate-ethinyl Take 1 Tab by mouth 0 12/22/2021 estradiol (SPRINTEC, 28,) daily. 0.25-35 mg-mcg per tablet UNABLE TO FIND daily. Med Name: 0 10/28 Oral Control documented as of this encounter Discharge Disposition Disposition Code Departure Means Destination Home or Self Care documented in this encounter Progress Notes Yakelin Holman RT - 09/30/2019 1038 EST Testing was performed and recorded in [email or web address]. See complete report in scanned documents. documented in this encounter Plan of Treatment Not on filedocumented as of this encounter Procedures Procedure Name Priority Date/Time Associated Diagnosis Comme nts PULMONARY FUNCTION REPORT 09/30/2019 14:56 EST - SCANNED documented in this encounter Visit Diagnoses Diagnosis Asthma, unspecified asthma severity, uns pecified whether complicated, unspecified whether persistent documented in this encounter Orders Procedures Count Last Ordered Date First Ordered Date PULMONARY FUNCTION REPORT - SCANNED 1 10/01/2019 documented in this encounter Care Teams Rebrander Relationship Specialty Start Date End Date Albertina Johnson PA-C PCP - General 10/15/14 [address] [place] [address] documented as of this encounter
--- OUTSIDE RECORDS SUMMARY | 2022-04-22 16:12 | XMS_ITS | Encounter Summary ---
:1995 Author Organization [facility] Address [address] [place] [address] Care Team Providers Name Role Phone Albertina Johnson PA-C Primary Care Provider Encounter Details Date Type Department Care Team Description 04/03/2018 Results Only Imaging [facility] Danii Del Toro PRISM PA [phone] [address] [place], [place] [address] Social History Tobacco Use Types Packs/Day Years [...] Name Priority Date/Time Associated Diagnosis Comme nts L SPINE 2-3 VIEWS 04/03/2018 12:17 Result s for this EDT procedure are i n the results section. documented in this encounter Results L SPINE 2-3 VIEWS (04/03/2018 12:17 EDT) Anatomical Region Laterality Modality Other Specimen Narrative [facility] [place] [facility] - 04/04/2018 12:35 EDT HIP BILATERAL 3-4 VIEWS, OPTIONAL PELVIS, L SPINE 2-3 VIEWS ?? 04/03/2018 12:17 PM SIGNS AND SYMPTOMS/COMMENTS: ??Low back pain (B)hip popping COMPARISON: ??None TECHNIQUE: AP and lateral views of the l umbar spine were obtained. A single AP view of the pelvis was obtaine d in addition to frog leg lateral views of the left and right hips . FINDINGS: LUMBAR SPINE: 5 lumbar-type vertebrae ar e identified. The lumbar vertebral heights are normal. The interv ertebral disc spaces are normal throughout the lumbar spine. The lumbar spine alignment is normal. Air and stool are seen throughou t the visible colon. PELVIS/HIPS: The SI joints are congruent and symmetric. The hip joints are normal. No fracture identifie d. The soft tissues are unremarkable. IMPRESSION: Normal radiographs of the lumbar spine, hips and pelvis. I have personally reviewed the images an d the above interpretation and agree with the findings. Procedure Note Eyad Rolle MD - 04/04/2018 HIP BILATERAL 3-4 VIEWS, OPTIONAL PELVIS , L SPINE 2-3 VIEWS 04/03/2018 12:17 PM SIGNS AND SYMPTOMS/COMMENTS: Low back pa in (B)hip popping COMPARISON: None TECHNIQUE: AP and lateral views of the l umbar spine were obtained. A single AP view of the pelvis was obtaine d in addition to frog leg lateral views of the left and right hips . FINDINGS: LUMBAR SPINE: 5 lumbar-type vertebrae ar e identified. The lumbar vertebral heights are normal. The interv ertebral disc spaces are normal throughout the lumbar spine. The lumbar spine alignment is normal. Air and stool are seen throughou t the visible colon. PELVIS/HIPS: The SI joints are congruent and symmetric. The hip joints are normal. No fracture identifie d. The soft tissues are unremarkable. IMPRESSION: Normal radiographs of the lumbar spine, hips and pelvis. I have personally reviewed the images an d the above interpretation and agree with the findings. Performing Organization Address City/State/ZIP Code Phon e Number [facility] [place] documented in this encounter Visit Diagnoses Not on filedocumented in this encounter Care Teams Binder Folder Operator Relationship Specialty Start Date End Date Albertina Johnson PA-C PCP - General 10/15/14 [address] [place] [address] documented as of this encounter
[2022-04-22 16:13] VITALS: BP 133/80; PULSE 84; RESP 16; TEMP 36.9; O2SAT 98
--- OUTSIDE RECORDS SUMMARY | 2022-04-22 16:13 | XMS_ITS | Encounter Summary ---
:1995 Author Organization [facility] Address [address] [place] [address] Care Team Providers Name Role Phone Albertina Johnson PA-C Primary Care Provider Encounter Details Date Type Department Care Team Description 11/22/2014 Hospital Encounter [facility] Arie Cohen MD [address] [place] [phone] Cough Pulmonary Function Lab Unknown, Provider, - [address] [phone] Social History Tobacco Use Types Packs/Day Years Used Date Passive Smoke Exposure - Never Smoker Sex Assigned at Date Recorded Female 09/16/2021 22:07 EST documented as of this encounter Discharge Diagnoses Diagnosis 786.2 COUGH[ICD-9-CM] documented in this encounter Medications at Time [...] Home documented in this encounter Progress Notes Ba Obrien, RT - 11/22/2014 1233 EST Testing was performed and recorded in [employer]. See complete report in scanned documents. documented in this encounter Plan of Treatment Not on filedocumented as of this encounter Procedures Procedure Name Priority Date/Time Associated Diagnosis Comme nts PULMONARY FUNCTION REPORT 01/28/2015 9:42 EDT - SCANNED PULMONARY FUNCTION REPORT 11/22/2014 12:50 EST - SCANNED documented in this encounter Visit Diagnoses Diagnosis Cough documented in this encounter Administered Medications Inactive Administered Medications - up to 3 most recent administrations Medication Order MAR Action Action Date Dose Rate Site albuterol inhaler 2 Puff Given 11/22/2014 12:33 EST 2 Puffs 2 Puff, inhalation, ONCE, 1 dose, Starting on Sat11/22/14 at 1300, Until Sat11/22/14 at 1233, Routine documented in this encounter Orders Medications Ordered That Might Not Have Count Last Ord ered Date First Ordered Date Been Administered albuterol inhaler 2 Puff 1 11/22/2014 Procedures Count Last Ordered Date First Ordered Date PULMONARY FUNCTION REPORT - SCANNED 2 01/28/2015 11/22/2014 documented in this encounter Care Teams Audio/Video Engineer Relationship Specialty Start Date End Date Albertina Johnson PA-C PCP - General 10/15/14 [address] [place] [address] documented as of this encounter
--- OUTSIDE RECORDS SUMMARY | 2022-04-22 16:13 | XMS_ITS | Encounter Summary ---
:1995 Author Organization [facility] Address [address] [place] [address] Care Team Providers Name Role Phone Albertina Johnson PA-C Primary Care Provider Reason for Visit Reason Onset Date Comments New Patient Visit 10/19/2014 Encounter Details Date Type Department Care Team Description 10/19/2014 Telephone [facility] Herbert Cohen MD New Patient Visit Pediatric Pulmonary - [address] [place], [place] [address] [facility] [phone] [place] [address] [phone] Social History Tobacco Use Types Packs/Day Years Used Date Never Assessed Sex Assigned at Date Recorded Female 09/16/2021 22:07 EST documented as of this encounter Miscellaneous Notes Telephone Encounter - Lu Gil - 10/19/2014 1228 EST New Patient Visit Name: Rey Diaz : 1995 Parent/Guardian: Belkys Diaz Referring Provider: Albertina Johnson PA-C PCP Spoke to: [facility] DX: Exercise induced bronchial spasms/mild lung obstruction Does patient have films: No Appointment Date: 11/22/14 Appointment Time: 1:00 Insurance: BC/BS documented in this encounter Plan of Treatment Not on filedocumented as of this encounter Visit Diagnoses Not on filedocumented in this encounter Care Teams Sand Conditioner Machine Relationship Specialty Start Date End Date Albertina Johnson PA-C PCP - General 10/15/[address] [place] [id number] documented as of this encounter
--- OUTSIDE RECORDS SUMMARY | 2022-04-22 16:13 | XMS_ITS ---
:1995 Author Care Team Providers Name Role Phone Rigo Ruchi Primary Care Provider Unavailable Allergies Code Code System Name Reaction Severity Status Onset 196961 RxNorm Green Tea Abdominal Pain Severe Active ? Nausea Severe Active ? Rash Moderate to Severe Active ? Medications Name Status Start Date Stop Date ? ? Advair HFA 115 mcg-21 mcg/actuation aerosol Active ? Not available inhaler Florasone Cream by Thu Active ? Not available cream Apply to affected area 1-4 times daily nortriptyline 10 mg capsule Completed ? 09/27 nortriptyline 25 mg capsule Completed ? 09/27 ProAir HFA 90 mcg/actuation aerosol inhaler Completed ? 10/09/2021 Inhale 2 puffs every 4 hours by inhalation route. Sprintec (28) 0.25 mg-35 mcg tablet Active ? Not available Symbicort 80 mcg-4.5 mcg/actuation HFA aerosol Active ? Not available inhaler Vitamin D3 Active 11/28/2020 Not available 4000 IU per day Zyrtec 10 mg capsule Active ? Not availab le Take 1 capsule by oral route. Notes: SPM Kathryn 2 capsules once ahmet ly. Inflammatone 3 capsules once daily. Problems Name Status Onset Date Source ? Chronic Pain Active 10/28/2014 ? Asthma Active ? ? Notes: accessory navicular bone, bilat eral Procedures Date Name Performed by ? 10/28/2006 Excision of Accessory Navicular Bone Inf ormation not available Results Lab Results None recorded. Past Encounters 02/26/2022 Ruchi Sierra, [place]: [facility], [address] [address], Ph. 10/09/2021 Vitamin D Deficiency; Chronic Pain; Alexsandra gestion Ruchi [place], [place]: [facility], [facility], [place] [address], Ph. 05/29/2021 Chronic Pain; Indigestion Ruchi Sierra, [place]: [facility], [address], [place] [address], Ph. 01/06/2021 Chronic Pain; Asthma Ruchi Sierra, [place]: [facility], [address], [place] [address], Ph. 12/02/2020 Chronic Pain Syndrome; Chronic Low Back Pain; Secondary Restless Legs Syndrome; Eczema; Low Back Pain Ruchi Sierra, [place]: [address], [address], [place] [address], Ph. Social History Tobacco Smoking Status Never Smoker Vaccine List None recorded. Plan of Care Patient Instructions Dear Rey, How nice to see you today! Let's plan to step down your plan to inc lude: Inflammatone 2 capsules once to twice da lizette as needed for pain (e.g, during cycle or with exertion) SPM Kathryn 2 gelcaps once to twice darcy y as needed for pain (e.g, during cycle or with exertion) We will plan to retest Vitamin D levels in February. I am here for you whenever you need any support. I am really pleased with all of your great progress! Warmly, Rey Rawls! It was wonderful to see you today. Here are my recommendations: For pain reduction: -continue to avoid known food sensitivit ies -continue to dose Inflammatone 3 capsule s QD in the AM, continue to dose SPM Kathryn at 2 gelcaps QD in the AM; after your wedding, continue doing a trial without the antiinflammatory supplements and assess response -Continue Low-impact physical activities , continue to engage in activities that build strength Let's plan to meet in 3 months to check on progress. Please call anytime if you have concerns before our next meeting. Congratulations on your upcoming wedding! (I can't wait to see a photo!) Continue with Inflammatone at 3 capsule s in the AM. Continue with SPM Kathryn at 2 gelcaps i n the AM. Continue to increase movement, especiall y as the weather gets nice. For any activity, especially workout regimens (including yoga, pilates, cardio), try to engage in low impact activities to minimize stress on the low back. Please call with with any concerns farzaneh pittman now and our next visit. Reminders Provider Appointments None recorded. ? ? Lab None recorded. ? ? Referral None recorded. ? ? Procedures None recorded. ? ? Surgeries None recorded. ? ? Imaging None recorded. ? ? Vitals None recorded.
--- OUTSIDE RECORDS SUMMARY | 2022-04-22 16:13 | XMS_ITS | CCD ---
:1995 Author Care Team Providers Name Role Phone DENNY FISHER Attending Physician Unavailable Vital Signs Unknown or Not Available. Allergies Allergy Code Allergy Type Reaction Status No Known Allergies 0 No known allergies Act timbo Procedures Unknown or Not Available. History of Immunizations Immunization Code Date Tdap 115 04/18/2014 Problems Unknown or Not Available. Results [facility] COVID RHEONIX* - Collect Date/Sergei e: 04/18/2022 10:47 Test Name Code Test Result Test Units Test Ref Range Tier- 83432-5 EXPOSURE N/A SARS COV2 RNA: 48430-0 NEGATIVE N/A REFERENCE RAN GE: NEGAT Active Medications Unknown or Not Available. Medications Administered During Visit Unknown or Not Available. Encounters Unknown or Not Available. Social History Smoking Status Code Start Date End Date Never smoker [id number] Patient Decision Aids Unknown or Not Available. Discharge Instructions You were admitted to [facility] on 04/18/2022 10:01 You had the following tests done: COPLE Y COVID RHEONIX* You were discharged from [facility] on 04/18/2022 10:01 Should you have any questions prior to d ischarge, please contact a member of your healthcare team. If you have left the ho spital and have any questions, please contact your primary care physician. Chief Complaint and Reason For Visit Unknown or Not Available. Function Status Unknown or Not Available. Plan of Care Unknown or Not Available. Referral/Transition of Care Unknown or Not Available.
--- OUTSIDE RECORDS SUMMARY | 2022-04-22 16:13 | XMS_ITS | Encounter Summary ---
:1995 Author Organization [facility] Address [address] [place] [address] Care Team Providers Name Role Phone Albertina Johnson PA-C Primary Care Provider Reason for Visit Reason Comments Asthma Encounter Details Date Type Department Care Team Description 01/11/2015 Office Visit [facility] Herbert Cohen MD Asthma, [facility] [address] [place] [address] ent (Primary Pulmonary - [address] ) [place], [place] [address] [facility] [address] [place], [place] [id number] [phone] Social History Tobacco Use Types Packs/Day Years Used Date Passive Smoke Exposure - Never Smoker Sex Assigned at Date Recorded Female 09/16/2021 22:07 EST documented as of this encounter Last Filed Vital Signs Vital Sign Reading Time Taken Comments Blood Pressure 119/71 01/11/2015 0958 EDT Pulse 80 01/11/2015 0958 EDT Temperature - - Respiratory Rate 16 01/11/2015 0958 EDT Oxygen Saturation 100% 01/11/2015 0958 EDT Inhaled Oxygen Concentration - - Weight 56.3 kg (124 lb 1.9 oz) 01/11/2015 0958 EDT Height 156 cm (5' 1.42) 01/11/2015 0958 EDT Body Mass Index 23.13 01/11/2015 0958 EDT documented in this encounter Discharge Diagnoses Diagnosis 493.90 ASTHMA, UNSPECIFIED[ICD-9-CM] documented in this encounter Patient Instructions Patient InstructionsLahiri, Herbert, MD - 01/11/2015 10:32 EDT End of January, decrease Flovent to 1 puff twice daily for 2 weeks, then decrease to 1 puff daily for 2 weeks, then stop Keep using albuterol 2 puffs up to every 4 hours as needed or before exercise documented in this encounter Discharge Disposition Disposition Code Departure Means Destination Auto Discharge documented in this encounter Progress Notes Herbert Cohen MD - 01/11/2015 1028 EDT Images from the original note were not included. Pediatric Pulmonology Herbert Cohen M.D., Karoline Merino, Payal Camacho M.D. [facility] [address] [place] [address] Encounter Date: 01/11/2015 Albertina Johnson, [facility] [address] [facility] [address] Chief Complaint: Rey is a 19 y.o. female who is seen in pulmonary clinic for asthma. Rey is accompanied by her mother who contributed to the history. Subjective: Rey has been well since the last visit. She had a minor cold last month that consisted only of URI symptoms and no cough or chest symptoms. Her shortness of breath with activity has markedly improved on Flovent. She is now only rarely requiring albuterol (less than twice monthly). She is no longerpremedicating for dancing and does not develop chest tightness, cough or shortness of breath. There was one occasion in cold air that she used albuterol for chest tightness. She has not had fatigue, sleep disturbance, decrease in energy and fever. She has had no cough and frequent awakenings during sleep. Typical triggers: Infections / Colds, Exercise Classification of Asthma Control: Daytime symptoms: None Nighttime awakenings: None Interference with normal activity: None Short-acting Beta agonist use for symptom control: Less than or equal to 2 days/week Exacerbations requiring oral systemic corticosteroids: 0-1/year Medication Use: Rescue/quick relief medicines: ?? Albuterol MDI. Rey has needed to use this medication less than 2x/month. Preventive/long-term control: ?? fluticasone (FLOVENT) 110mcg Proper use of chamber / mask: Yes Medication Compliance: Adherent Gastrointestinal/Nutrition: Appetite is good. Diet: healthy diet in general Gastroesophageal reflux symptoms are absent . Other abdominal complaints include none. Otolaryngology: Rey has had no sinus related symptoms and no allergy symptoms. General Health: Overall behavior and activity has been normal. Exercise: Moderately active Rey has missed 0 days of school due to illness. Environmental History: There have been no changes to the home environment since the last visit. Environmental Tobacco Exposure: No REVIEW OF SYSTEMS: Positive for: none Negative for: fever, fatigue, malaise, runny nose, congestion, sinus pressure / pain, eye redness, eye watering, cough, shortness of breath, wheezing, exertional symptoms, abdominal pain, wet burps, decreased appetite A complete review of systems was obtained and was negative except listed above. History reviewed. No pertinent past medical history. Past Surgical History Procedure Laterality Date ??? Foot surgery Past Medical and Surgical History was reviewed and updated in [facility]. Family History Problem Relation Age of Onset ??? Asthma Mother ??? Asthma Maternal Grandmother ??? Allergic Rhinitis Neg Hx ??? Childhood Resp Disease Neg Hx ??? Cystic Fibrosis Neg Hx Outpatient Prescriptions Marked as Taking for the 01/11/15 encounter (Office Visit) with Herbert Cohen MD Medication Sig Dispense Refill ??? fluticasone (FLOVENT) 110 mcg/actuation inhaler Inhale 2 Puffs as directed 2 times daily. 1 Inhaler 5 No Facility-Administered Medications for the 01/11/15 encounter (Office Visit) with Herbert Cohen MD. No Known Allergies Living Conditions ??? Lives with Parents Weekdays ??? Education Grade 12 Safety and Environmental Exposures ??? Pets Yes Social History was reviewed and updated in [facility]. Relevant elements of social history can be found in the environmental exposures portion of this note. Objective Data BP 119/71 Pulse 80 Resp 16 Ht 156 cm (61.42) Wt 56.3 kg (124 lb 1.9 oz) BMI 23.13 kg/m2 SpO2 100% General Appearance: well appearing, alert, no acute distress, cooperative Head: normocephalic, atraumatic Eye: no injection, no discharge Ear: TM's clear bilaterally, canals clear bilaterally Nose: septum midline, pink mucosa, no discharge Mouth\Throat: moist mucosa, oropharynx without exudate, erythema or thrush, enlarged tonsils Lymph Nodes: no lymphadenopathy Chest\Lungs: Air entry is good bilaterally, wheezing is not appreciated, crackles are not appreciated, no retractions, expiratory phase is within normal limits, cough is absent Abdomen: abdomen is soft, nontender, and nondistended without hepatosplenomegaly or masses and normoactive bowel sounds are present Heart: S1/S2 RRR and no murmur Skin: Warm and dry, Cyanosis is absent MSK:Clubbing is absent Diagnostic Data PFT's PFTS (Before Albuterol Treatment) FVC (L): 3.38 liters FVC % Pred: 97 FEV1 (L): 2.45 liters FEV 1 % Pred: 79 FEF 25-75% (L/scc): 1.9 FEF 25-75% Pred: 51 FEV-1/FVC % Pred: 73 PFTS (After Albuterol Treatment) FVC (L) (After Albuterol): 3.53 liters FVC % Pred (After Albuterol): 101 FEV1 (L) (After Albuterol): 2.5 liters FEV 1 % Pred (After Albuterol): 80 FEF 25-75% (L/scc) (After Albuterol): 1.97 FEF 25-75% Pred (After Albuterol): 53 FEV-1/FVC (After Albuterol): 71 X-rays: No x-rays were reviewed during this encounter Assessment and Plan Rey is a 19 y.o. female with Mild Persistent asthma. She has been stable on inhaled corticosteroids with resolution of her exertional symptoms. Spirometry continues to show fixed mild airflow limitation without a bronchodilator response. Based on the frequency and severity of symptoms, Rey has Mild Persistent asthma. Patient's Asthma Control: Well Controlled. Rey may be able to wean from chronic maintenance therapy this spring. Exacerbating factors may include environmental triggers. I discussed the following treatment plan with Rey and her mother. Asthma ?? Maintenance (Green) Medications: ?? - fluticasone (FLOVENT) 110mcg 2 inhalations twice daily, at the end of January decrease to 1 puff twice daily x 2 weeks, then decrease to 1 puff once daily x 2 weeks, then discontinue ?? - ?? Rescue (Yellow) Medications: albuterol MDI 2 puffs ?? Emergency (Red) Medications: albuterol MDI 4 puffs ?? If Rey needs albuterol 2 times per week for more for symptoms following her wean, I would restart Flovent 1 puff twice daily. ?? Return to clinic as needed. Education / Self Management Goals: Symptomatic treatments reviewed. Patient's condition, differential diagnosis, and Treatment Plan reviewed. Teaching provided for the listed diagnoses and/or medications. Spacer use discussed. Triggers and risk factors discussed. Patient's / Parent's Insight into Illness: Good understanding of disease and symptom management Patient's Self-Management Goal: Use my rescue inhaler when I have cough, trouble breathing or wheezing Please feel free to contact us with questions or comments regarding Rey's care. 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
--- OUTSIDE RECORDS SUMMARY | 2022-04-22 16:13 | XMS_ITS | CCD ---
:1995 Author Care Team Providers Name Role Phone DENNY FISHER Attending Physician Unavailable Vital Signs Unknown or Not Available. Allergies Allergy Code Allergy Type Reaction Status No Known Allergies 0 No known allergies Act timbo Procedures Unknown or Not Available. History of Immunizations Immunization Code Date Tdap 115 04/18/2014 Problems Unknown or Not Available. Results [facility] COVID RHEONIX* - Collect Date/Sergei e: 03/30/2022 16:41 Test Name Code Test Result Test Units Test Ref Range Tier- 90640-5 TRAVEL N/A SARS COV2 RNA: 85550-3 NEGATIVE N/A REFERENCE RAN GE: NEGAT Active Medications Unknown or Not Available. Medications Administered During Visit Unknown or Not Available. Encounters Unknown or Not Available. Social History Smoking Status Code Start Date End Date Never smoker [id number] Patient Decision Aids Unknown or Not Available. Discharge Instructions You were admitted to [facility] on 03/31/2022 14:51 You had the following tests done: TOYARUTH Tiffanie COVID RHEONIX* You were discharged from [facility] on 03/31/2022 14:51 Should you have any questions prior to d ischarge, please contact a member of your healthcare team. If you have left the spital and have any questions, please contact your primary care physician. Chief Complaint and Reason For Visit Unknown or Not Available. Function Status Unknown or Not Available. Plan of Care Unknown or Not Available. Referral/Transition of Care Unknown or Not Available.
--- NOTE | 2022-04-22 16:46 | ED.GENADUL_ITS ---
Discharge Plan Disposition Patient Disposition: HOME Condition: Stable Discharge Details Clinical Impression: Superficial bruising of thigh, Bacterial skin infection of leg Primary Care Provider: Shala Estes ED Provider: Jammie Resendiz Home Meds and New Rx's Prescriptions: New mupirocin 2 % ointment 1 applic TP BID Qty: 15 0RF Continued Advair HFA 115-21 mcg/actuation HFA aerosol inhaler 2 inh INHALATION Discharge Instructions Instructions: Cellulitis (ED), Contusion in Adults (ED) Additional Instructions: You appear to have a superficial bruise and potential superimposed mild bacterial skin infection around this area. Your presentation does not appear consistent with a tick bite at this time but continue to monitor for signs of fever, chills, body aches or bull's-eye rash as you might need testing or treatment for Lyme disease. Apply ice to the affected area several times daily for 20 minutes at a time. Apply topical antibiotic ointment to the area twice daily. If you have no relief with mtno-yfa-[id number] topical antibiotic ointment, a prescription for mupirocin antibiotic ointment has been sent electronically to your pharmacy to use as directed for the next week. Follow-up with your primary care doctor in 1 week. Return to the emergency department with any worsening or new concerning symptoms. Discharge Data Discharge Physician: Jammie Resendiz Medical Decision Making 26-year-old female presents with area of bruising and redness to her left thigh noted since yesterday. She is unaware of any bug bite or new exposures. She denies any fever or known tick bite. Vitals within normal limits. Patient appears comfortable and nontoxic. She has a 2 x 2 centimeter area of ecchymosis with surrounding erythema noted on the superior aspect. There is no abscess. There is no bull's-eye rash. History and presentation does not appear consistent with an allergic reaction or tick bite. Discussed that she may have had a superficial trauma to the area from a bug bite or other injury resulting in ecchymosis and potentially superimposed mild bacterial skin infection. Advised to apply ice and topical antibiotic ointment. She was given a prescription for mupirocin and no relief with topical antibiotic ointment. Advised to follow up with the primary care doctor for re-evaluation. Usual and customary return precautions given prior to discharge. HPI General Mode of arrival: ambulatory . Date/Time Provider Initiated Documentation: 04/22/22 16:34 . Limitations to Documentation: no limitations . Information obtained by: patient . HPI Narrative: Patient is a 26-year-old female presents with bruising and redness to her left thigh that she noticed yesterday. Patient states she was at a chicken barbecue yesterday and when she returned home she noted a small bruise to her left upper inner thigh. She states since then the area around the bruise has become painful and red. She denies any known tick or bug bite. She denies fever, chills, body aches or bull's-eye rash. She denies any other new exposures including soaps, lotions, detergents or Related Data Home Medications Medication Instructions Recorded Confirmed fluticasone propionate 115 2 inh inhalation 04/22/22 mcg-salmeterol 21 mcg/actuation HFA inhaler (Advair HFA) mupirocin 2 % topical ointment 1 applic topical BID #15 grams 04/22/22 Previous Rx's Medication Instructions Recorded mupirocin 2 % topical ointment 1 applic topical BID #15 grams 04/22/22 Allergies Allergy/AdvReac Type Severity Reaction Status Date / Time No Known Allergies Allergy Unverified 04/22/22 16:17 General Stated Complaint: RashLesion MARINE: 4 Review of Systems All systems reviewed & are unremarkable except as noted in HPI and below Constitutional Constitutional: Reports as per HPI, Denies chills and Denies fever(s) Eyes Eyes: Denies blurry vision ENT Ears, Nose, Mouth, and Throat: Denies dizziness, Denies sore throat and Denies throat swelling Cardiovascular Cardiovascular: Denies chest pain and Denies dyspnea Respiratory Respiratory: Denies cough and Denies dyspnea Gastrointestinal Gastrointestinal: Denies abdominal pain, Denies diarrhea and Denies vomiting Genitourinary Genitourinary: Denies hematuria and Denies dysuria Musculoskeletal Musculoskeletal: Denies back pain and Denies numbness Integumentary/Breasts Skin/Breast: Reports lesions and Denies rash Neurologic Neurologic: Denies dizziness, Denies localized weakness and Denies numbness Allergic/Immunologic Allergic/Immunologic: Denies throat swelling PFSH All Active Problems (Updated 04/22/22 @ 17:13 by Jammie Resendiz DO) Superficial bruising of thigh (Acute) Bacterial skin infection of leg (Acute) Social History Smoking/Tobacco Use Status: Never Smoking risk assessment performed?: Yes Drug use: Occasionally Substance use type: marijuana Exam Const General: cooperative, healthy appearing and no acute distress HENMT Head: normal to inspection Mouth: oral mucosae normal Eyes General: appearance normal, both eyes and all related structures Neck Neck: normal visual inspection Resp Effort & Inspection: normal respiratory effort and able to speak in complete sentences Cardio Rate: regular rate Skin General skin exam: no rashes or lesions noted Neuro General: patient alert, patient awake and patient oriented x3 Motor: muscle tone normal throughout Extrem Upper/lower leg/hip images: 1. 2 x 2 centimeter area of patchy ecchymosis 2. Area of erythema extending off area of this. This area slightly tender to the touch. There is no induration, fluctuance, crepitus. Psych Appearance: grossly normal Affect: normal affect Course Vital Signs Vital signs: Vital Signs Temperature 98.4 F 04/22/22 16:13 Pulse 84 04/22/22 16:13 Respiratory Rate 16 04/22/22 16:13 Blood Pressure 133/80 04/22/22 16:13 Pulse Oximetry 98 04/22/22 16:13 Temperature 98.4 F 04/22/22 16:13 Temperature Source Oral 04/22/22 16:13 Pulse 84 04/22/22 16:13 Respiratory Rate 16 04/22/22 16:13 Respiratory Effort 04/22/22 16:13 Blood Pressure 133/80 04/22/22 16:13 Blood Pressure Position Sitting 04/22/22 16:13 Pulse Oximetry 98 04/22/22 16:13 Oxygen Delivery Method Room Air 04/22/22 16:13 Oxygen Flow Rate 0 04/22/22 16:13 Pain Level 4 04/22/22 16:13
== END 2022-04-22 17:16 | disposition home or self-care (01) ==
PROVIDERS: Emergency Provider Physician Assistant; PCP Nurse Practitioner Family
DX: S70.12XA Contusion of left thigh, initial encounter (principal); L08.9 Local infection of the skin and subcutaneous tissue, unspecified; B96.89 Other specified bacterial agents as the cause of diseases classified elsewhere; X58.XXXA Exposure to other specified factors, initial encounter
CPT/HCPCS: 99283; 99284

== ENCOUNTER 2023-11-12 18:45 | Emergency (ER) | payer OTHER, SELFPAY ==
--- NOTE | 2023-11-12 18:45 | DI.RAD_ITS ---
Exam(s) XR CHEST 2V PA LATERAL EXAM: XR CHEST 2V PA LATERAL CLINICAL HISTORY: Cough, PUI. TECHNIQUE: 2D digital imaging was performed. COMPARISON: No exams were available for comparison FINDINGS: 2 views: Heart size is normal. The mediastinum is not widened. Lungs are clear. No infiltrates nor pleural effusions. IMPRESSION: No acute pulmonary findings. DATA REPOSITORY: RADIATION DOSE DELIVERED:
[2023-11-12 18:50] VITALS: BP 136/108; PULSE 72; RESP 18; TEMP 37; O2SAT 97
--- NOTE | 2023-11-12 19:07 | W.ED.GENAD ---
HPI General Mode of arrival: ambulatory. Date/Time Provider Initiated Documentation: 11/12/23 18:54. Limitations to Documentation: no limitations. Information obtained by: patient, RN notes reviewed and old records reviewed. HPI Narrative: 27 year old female presents with cough x 3 weeks URI symptoms. She does have a history of asthma. Nonproductive cough. Lungs are CTA bilaterally, she does use Symbicort BID and has been using OTC remedies with little to no relief. She is speaking in full sentences and has no wheezes or adventitious sounds on exam. Related Data Home Medications Medication Instructions Recorded Confirmed fluticasone propionate 115 2 inh inhalation Q4-5H PRN 04/22/22 11/12/23 mcg-salmeterol 21 mcg/actuation HFA inhaler (Advair HFA) mupirocin 2 % topical ointment 1 applic topical BID #15 grams 04/22/22 11/12/23 benzonatate 100 mg capsule 100 mg PO TID PRN cough #14 caps 11/12/23 levalbuterol tartrate 45 2 puff inhalation PRN 11/12/23 mcg/actuation aerosol inhaler Previous Rx's Medication Instructions Recorded mupirocin 2 % topical ointment 1 applic topical BID #15 grams 04/22/22 benzonatate 100 mg capsule 100 mg PO TID PRN cough #14 caps 11/12/23 Allergies Allergy/AdvReac Type Severity Reaction Status Date / Time No Known Allergies Allergy Unverified 11/12/23 18:54 General Stated Complaint: RespSymp MARINE: 3 Review of Systems All systems reviewed & are unremarkable except as noted in HPI and below Respiratory Respiratory: Reports cough, Denies hemoptysis, Denies excessive phlegm production and Reports pain with cough PFSH All Active Problems (Updated 11/12/23 @ 19:55 by Amena Ramirez NP) Cough (Acute) Social History Smoking/Tobacco Use Status: Never Smoking risk assessment performed?: Yes Alcohol Intake: current Alcohol Intake frequency: a few times a month Drug use: Occasionally Substance use type: marijuana Do you feel safe at home: Yes Do you feel safe in your relationship?: Yes Exam Narrative Exam Narrative: Constitutional: Alert and oriented x3. Appears stated age. Normal body habitus. Head: Normocephalic, no trauma. Eyes: Pupils PERRL, Red reflex noted, EOM's intact. Eyelids symmetrical without lesions, discharge, or swelling. ENT: Bilateral TM's WNL, External ear normal to inspection, no mastoid TTP, swelling, or erythema, Nasal turbinates WNL, no nasal discharge. Normal dentition, Posterior pharynx slightly erythemic no exudate. Chest: RRR, Normal S1, S2, distal pulses intact. Resp: Lungs clear to auscultation bilaterally, no wheezes, rales, or rhonchi. Abdomen: Soft, non-distended, Normoactive bowel sounds all 4 quads. Musculoskeletal: Normal gait, 5/5 strength to all four extremities. Skin: No suspicious rashes or lesions. Capillary refill less than 2 sec. Hematologic/Lymphatic: No ecchymosis, no lymphadenopathy. Course Vital Signs Vital signs: Vital Signs Temperature 37.0 C 11/12/23 18:50 Pulse 72 11/12/23 18:50 Respiratory Rate 18 11/12/23 18:50 Blood Pressure 136/108 H 11/12/23 18:50 Pulse Oximetry 97 11/12/23 18:50 Temperature 37.0 C 11/12/23 18:50 Temperature Source Temporal Artery Scan 11/12/23 18:50 Pulse 72 11/12/23 18:50 Respiratory Rate 18 11/12/23 18:50 Respiratory Effort Normal 11/12/23 19:04 Respiratory Depth Normal 11/12/23 19:04 Blood Pressure 136/108 H 11/12/23 18:50 Blood Pressure Position Sitting 11/12/23 18:50 Pulse Oximetry 97 11/12/23 18:50 Oxygen Delivery Method Room Air 11/12/23 18:50 Oxygen Flow Rate 0 11/12/23 18:50 Medical Decision Making 27 year old female presents with cough x 3 weeks URI symptoms. She does have a history of asthma. Nonproductive cough. Lungs are CTA bilaterally, she does use Symbicort BID and has been using OTC remedies with little to no relief. She is speaking in full sentences and has no wheezes or adventitious sounds on exam. Chest x-ray ordered,tessalon perrles, flu Covid swab. Covid Flu negative, CXR noted below, WNL. Patient discharged to home with Tessalon perrles and is in stable condition. Imaging Data Radiologic Study: Imaging: X-Ray Radiologist's impression: TECHNIQUE: Imaging protocol: Radiologic exam of the chest. Views: 2 views. COMPARISON: No relevant prior studies available. FINDINGS: Lungs: Unremarkable. No consolidation. Pleural spaces: Unremarkable. No pleural effusion. No pneumothorax. Heart/Mediastinum: Unremarkable. No cardiomegaly. Bones/joints: Unremarkable. IMPRESSION: No acute findings. Thank you for allowing us to participate in the care of your patient. Dictated and Authenticated by: Jim Felix MD Quality:[facility] Health Related Social Needs: No Data to Display Discharge Plan Disposition Patient Disposition: Home Condition: Stable Discharge Details Clinical Impression: Cough Primary Care Provider: Jocelyne Harris ED Provider: Amena Ramirez Home Meds and New Rx's Prescriptions: New benzonatate 100 mg capsule 100 mg PO TID PRN (Reason: cough) Qty: 14 0RF Rx Instructions: Take 1 capsule up to 3 times daily as needed for cough Continued fluticasone propion-salmeterol [Advair HFA] 115-21 mcg/actuation HFA aerosol inhaler 2 inh INHALATION Q4-5H PRN mupirocin 2 % ointment 1 applic TP BID Qty: 15 0RF levalbuterol tartrate 45 mcg/actuation HFA aerosol inhaler 2 puff INHALATION PRN Patient Comments: INHALE 1-2 PUFFS DIRECTED EVERY 4 TO 6 HOURS NEEDED FOR WHEEZING. MAX 12 PUFFS/DAY. Discharge Instructions Instructions: Acute Cough (ED) Additional Instructions: No evidence for flu or pneumonia. Please take the cough tablet as directed up to 3 times daily. No evidence of pneumonia. Follow up with primary care provider in 3-5 days. Return to ED sooner if any worsening or concerns. Increase oral fluids. Referrals: Jocelyne Harris [Primary Care Provider] - 3 days
--- OUTSIDE RECORDS SUMMARY | 2023-11-12 19:10 | XMS_ITS | CCD ---
Author Name Unknown Address [address] [place] [address] [id number] Organization Unknown Address [address] [place] [address] [id number] Care Team Providers Care Principal Clerk Name Role Phone SYD PIERCE Attending Physician [phone] SYD PIERCE Rounding (Secondary) Physician [phone] Vital Signs Unknown or Not Available. Allergies Allergy Code Allergy Type Reaction Status No Known Allergies 0 No known allergies Active Procedures Unknown or Not Available. History of Immunizations Immunization Code Date Tdap 115 04/18/2014 Problems Unknown or Not Available. Results Unknown or Not Available. Active Medications Unknown or Not Available. Medications Administered During Visit Unknown or Not Available. Encounters Encounter Diagnosis Diagnosis Code Start Date care [id number] 03/12/2023 Social History Smoking Status Code Start Date End Date Never smoker [id number] Patient Decision Aids Unknown or Not Available. Discharge Instructions You were admitted to [facility] on 03/12/2023 12:55 with a principal diagnosis of Encounter for routine follow-up You were discharged from [facility] on 03/12/2023 12:55 Should you have any questions prior to discharge, please contact a member of your healthcare team. If you have left the hospital and have any questions, please contact your primary care physician. Chief Complaint and Reason For Visit Unknown or Not Available. Function Status Unknown or Not Available. Plan of Care Unknown or Not Available. Referral/Transition of Care Unknown or Not Available.
--- OUTSIDE RECORDS SUMMARY | 2023-11-12 19:10 | XMS_ITS | CCD ---
Author Name Unknown Address [address] [place] [address] [id number] Organization Unknown Address [address] [place] [address] [id number] Care Team Providers Care Background Investigator Name Role Phone RASHEEDA YARBROUGH Attending Physician [phone] Vital Signs Vital Sign Value Unit Date/Time Recent/Initial ? BMI (Body Mass Index) 30.67 kg/m^2 02/23/2023 01: 07 Initial VS Weight Measured 190 lbs 02/23/2023 01:07 Ini tial VS Height 66 in 02/23/2023 01:07 Initial VS BSA (Body Surface Area) 2 m^2 02/23/2023 0 1:07 Initial VS BP Systolic 126 mmHg 02/23/2023 13:12 Initial VS BP Diastolic 64 mmHg 02/23/2023 13:12 Initia l VS Heart Rate 99 bpm 02/23/2023 13:12 Initial VS O2 % BldC Oximetry 96 % 02/23/2023 13:12 Initial VS Body Temperature 37.1 degrees 02/23/2023 13:12 In itial VS Respiratory Rate 20 bpm 02/23/2023 13:51 In itial VS BP Systolic 120 mmHg 02/25/2023 08:00 Most Re cent VS BP Diastolic 85 mmHg 02/25/2023 08:00 Most R ecent VS Respiratory Rate 16 bpm 02/25/2023 08:[address] Recent VS Heart Rate 79 bpm 02/25/2023 08:00 Most Rec ent VS O2 % BldC Oximetry 97 % 02/25/2023 08:00 Most Recent VS Body Temperature 37 degrees 02/25/2023 08:[address] Recent VS Allergies Allergy Code Allergy Type Reaction Status No Known Allergies 0 No known allergies Active Procedures Procedure Code Procedure Type Date Delivery of Products of Conc eption, External Approach [id number] ICD-10 PCS 02/23/2023 Monitoring of Products of Co nception, Cardiac Rate, External Approach [id number] ICD-10 PCS 02/22/2023 Introduction of Other Hormon e into Peripheral Vein, Percutaneous Approach [id number] ICD-10 PCS 02/22/2023 History of Immunizations Immunization Code Date Tdap 115 04/18/2014 Problems Unknown or Not Available. Results CBC W/ DIFFERENTIAL* - Colle ct Date/Time: 02/22/2023 18:20 Test Name Code Test Result Test Units Test Ref Rang e WBC 6690-2 11.23 th/cmm L=5.00 H=10.00 NEUT % 77.3 % L=40.0 H=80.0 LYMPH % 15.9 % L=10.0 H=50.0 MONO % 74736-4 5.7 % L=2.0 H=12.0 EOS % 0.4 % L=0.0 H=8.0 BASO % 0.3 % L=0.0 H=3.0 IG % 2514-8 0.4 % L=0.0 H=1.1 NRBC % 24227-8 0.0 % L=0.0 H=0.0 NEUT abs count 751-8 8.7 th/cmm L=1.6 H=8. 4 LYMPH abs count 731-0 1.8 th/cmm L=1.5 H=4 .0 MONO abs count 742-7 0.6 th/cmm L=0.2 H=1. 0 EOS abs count 711-2 0.0 th/cmm L=0.0 H=0.5 BASO abs count 704-7 0.0 th/cmm L=0.0 H=0. 2 IG abs count 22531-4 0.1 th/cmm L=0.0 H=0.1 NRBC abs count 70974-7 0.0 mil/cmm L=0.0 H=0. 0 RBC 789-8 4.13 mil/cmm L=3.90 H=5.40 HEMOGLOBIN 718-7 12.1 gm/dL L=12.0 H=16.0 HEMATOCRIT 4544-3 35 % L=37 H=47 MCV 787-2 85 fL L=82 H=92 MCH 785-6 29.3 pg L=27.0 H=31.0 MCHC 786-4 34.6 % L=32.0 H=36.0 RDW-SD 788-0 39.6 fL L=39.0 H=49.0 PLATELET COUNT 777-3 263 th/cmm L=150 H=45 0 TYPE AND SCREEN* - Collect D ate/Time: 02/22/2023 18:20 Test Name Code Test Result Test Units Test Ref Rang e Blood Group 883-9 A N/A Rh (D) 27041-9 POSITIVE N/A Antibody Screen 1005-8 NEGATIVE N/A Active Medications Medications Administered During Visit Medication Dose Units Frequency Route Date/Time of Last Dose DINOPROSTONE VAGINAL INSERT: 10MG 10 MG X1 VAG 02/22/2023 19:11 BUTORPHANOL INJ SDV: 2MG/ML 2 MG PRN Q4H IM 02/23/2023 01:17 WITCH LORRAINE PADS 50% 1 PAD PRN TOP 02/23/2023 19:40 DOCUSATE SODIUM CAPSULE: 100MG 100 MG BID PO 02/25/2023 14:06 ACETAMINOPHEN TABLET: 325MG 650 MG PRN Q4H PO 02/23/2023 14:50 IBUPROFEN TABLET: 600MG 600 MG PRN Q6H PO 02/24/2023 21:51 Encounters Encounter Diagnosis Diagnosis Code Start Date Other mental disorders complicating childbirth O 30008 02/22/2023 Social History Smoking Status Code Start Date End Date Never smoker [id number] Patient Decision Aids Unknown or Not Available. Discharge Instructions You were admitted to [facility] on 02/22/2023 18:02 with a principal diagnosis of Other mental disorders complicating childbirth You had the following procedures done:Delivery of Products of Conception, External ApproachMonitoring of Products of Conception, Cardiac Rate, External ApproachIntroduction of Other Hormone into Peripheral Vein, Percutaneous Approach You had the following tests done:CBC W/ DIFFERENTIAL*TYPE AND SCREEN* You were discharged from [facility] on 02/25/2023 09:40 Should you have any questions prior to discharge, please contact a member of your healthcare team. If you have left the hospital and have any questions, please contact your primary care physician. Chief Complaint and Reason For Visit Chief Complaint Date of Onset TERM LABOR 03/28/2023 Function Status Unknown or Not Available. Plan of Care Unknown or Not Available. Referral/Transition of Care Unknown or Not Available.
--- OUTSIDE RECORDS SUMMARY | 2023-11-12 19:10 | XMS_ITS | CCD ---
Author Name Unknown Address [address] [place] [address] [phone] Organization Unknown Address [address] [place] [address] [phone] Care Team Providers Care Conche Operator Name Role Phone SYD PIERCE Attending Physician [phone] Vital Signs Unknown or Not Available. Allergies [...] Encounters Encounter Diagnosis Diagnosis Code Start Date Abnormality in heart r ate and rhythm complicating labor and delivery O76 02/22/2023 Social History Smoking Status Code Start Date End Date Never smoker [id number] Patient Decision Aids Unknown or Not Available. Discharge Instructions You were admitted to [facility] on 02/22/2023 00:52 with a principal diagnosis of Abnormality in heart rate and rhythm complicating labor and delivery You were discharged from [facility] on 02/25/2023 00:54 Should you have any questions prior to [...]
--- OUTSIDE RECORDS SUMMARY | 2023-11-12 19:10 | XMS_ITS | CCD ---
Author Name Unknown Address [address] [place] [address] [id number] Organization Unknown Address [address] [place], [place] [phone] Care Team Providers Care Microbiology Supervisor Name Role Phone JUVE GAMEZ Attending Physician [phone] JUVE GAMEZ Rounding (Secondary) Physicia n [phone] Vital Signs Unknown or Not Available. Allergies [...] Encounters Encounter Diagnosis Diagnosis Code Start Date Encounter for supervision of normal first , third trimester [id number] 02/08/2023 Social History Smoking Status Code Start Date End Date Never smoker [id number] Patient Decision Aids Unknown or Not Available. Discharge Instructions You were admitted to [facility] on 02/08/2023 15:25 with a principal diagnosis of Encounter for supervision of normal first , third trimester You were discharged from [facility] on 02/08/2023 15:25 Should you have any questions prior to [...]
--- OUTSIDE RECORDS SUMMARY | 2023-11-12 19:10 | XMS_ITS | CCD ---
Author Name Unknown Address [address] [place] [address] [phone] Organization Unknown Address [address] [place] [address] [phone] Care Team Providers Care Enterprise Applications Manager Name Role Phone SYD PIERCE Attending Physician [phone] SYD PIERCE Rounding (Secondary) Physician [phone] Vital Signs Unknown or Not Available. Allergies Allergy Code Allergy Type Reaction Status No Known Allergies 0 No known allergies Active Procedures Unknown or Not Available. History of Immunizations Immunization Code Date Tdap 115 04/18/2014 Problems Unknown or Not Available. Results PAP THINPREP HPV IF ASC-US* - Collect Date/Time: 04/10/2023 16:59 Test Name Code Test Result Test Units Test Ref Rang e Report (See below) N/A Active Medications Unknown or Not Available. Medications Administered During Visit Unknown or Not Available. Encounters Encounter Diagnosis Diagnosis Code Start Date care [id number] 04/10/2023 Social History Smoking Status Code Start Date End Date Never smoker [id number] Patient Decision Aids Unknown or Not Available. Discharge Instructions You were admitted to [facility] on 04/10/2023 10:24 with a principal diagnosis of Encounter for routine follow-up You had the following tests done:PAP THINPREP HPV IF ASC-US* You were discharged from [facility] on 04/10/2023 10:25 Should you have any questions prior to [...]
--- OUTSIDE RECORDS SUMMARY | 2023-11-12 19:10 | XMS_ITS | CCD ---
Author Name Unknown Address [address] [place] [address] [id number] Organization Unknown Address [address] [place] [address] [id number] Care Team Providers Care Trim Line Worker Name Role Phone SYD PIERCE Attending Physician [phone] SYD PIERCE Rounding (Secondary) Physician [phone] Vital Signs Unknown or Not Available. Allergies [...] Encounters Encounter Diagnosis Diagnosis Code Start Date care: primigravida [id number] Social History Smoking Status Code Start Date End Date Never smoker [id number] Patient Decision Aids Unknown or Not Available. Discharge Instructions You were admitted to [facility] on 02/15/2023 15:41 with a principal diagnosis of Encounter for supervision of normal first , third trimester You were discharged from [facility] on 02/15/2023 15:42 Should you have any questions prior to [...]
--- OUTSIDE RECORDS SUMMARY | 2023-11-12 19:10 | XMS_ITS | CCD ---
Author Name Unknown Address [address] [place] [address] [phone] Organization Unknown Address [address] [place], [place] [phone] Care Team Providers Care Lime Kiln Tender Name Role Phone RASHEEDA YARBROUGH Attending Physician [phone] RASHEEDA YARBROUGH Rounding (Secondary) Physici an [phone] Vital Signs Unknown or Not Available. Allergies [...] of normal first , third trimester Z3403 02/22/2023 Social History Smoking Status Code Start Date End Date Never smoker [id number] Patient Decision Aids Unknown or Not Available. Discharge Instructions You were admitted to [facility] on 02/22/2023 15:11 with a principal diagnosis of Encounter for supervision of normal first , third trimester You were discharged from [facility] on 02/22/2023 15:12 Should you have any questions prior to [...]
--- OUTSIDE RECORDS SUMMARY | 2023-11-12 19:11 | XMS_ITS | CCD ---
Author Name Unknown Address [address] [place] [address] [phone] Organization Unknown Address [address] [place], [place] [phone] Care Team Providers Care Gas Pumper Name Role Phone RASHEEDA YARBROUGH Attending Physician [phone] RASHEEDA YARBROUGH Rounding (Secondary) Physici an [phone] Vital Signs Unknown or Not Available. Allergies [...] Diagnosis Diagnosis Code Start Date care: primigravida [id number] 07/2023 Social History Smoking Status Code Start Date End Date Never smoker [id number] Patient Decision Aids Unknown or Not Available. Discharge Instructions You were admitted to [facility] on 01/04/2023 16:32 with a principal diagnosis of Encounter for supervision of normal first , third trimester You were discharged from [facility] on 01/04/2023 16:32 Should you have any questions prior to [...]
--- OUTSIDE RECORDS SUMMARY | 2023-11-12 19:11 | XMS_ITS | CCD ---
Author Name Unknown Address [address] [place] [address] [phone] Organization Unknown Address [address] [place], [place] [phone] Care Team Providers Care Manager Application Name Role Phone RASHEEDA YARBROUGH Attending Physician [phone] RASHEEDA YARBROUGH Rounding (Secondary) Physici an [phone] Vital Signs Unknown or Not Available. Allergies [...] Diagnosis Diagnosis Code Start Date care: primigravida [id number] Social History Smoking Status Code Start Date End Date Never smoker [id number] Patient Decision Aids Unknown or Not Available. Discharge Instructions You were admitted to [facility] on 01/25/2023 16:22 with a principal diagnosis of Encounter for supervision of normal first , third trimester You were discharged from [facility] on 01/25/2023 16:22 Should you have any questions prior to [...]
--- OUTSIDE RECORDS SUMMARY | 2023-11-12 19:11 | XMS_ITS | CCD ---
Author Name Unknown Address [address] [place] [address] [phone] Organization Unknown Address [address] [place] [address] [id number] Care Team Providers Care Staff Appraiser Name Role Phone RASHEEDA YARBROUGH Attending Physician [phone] RASHEEDA YARBROUGH Rounding (Secondary) Physici an [phone] Vital Signs Unknown or Not Available. Allergies Allergy Code Allergy Type Reaction Status No Known Allergies 0 No known allergies Active Procedures Unknown or Not Available. History of Immunizations Immunization Code Date Tdap 115 04/18/2014 Problems Unknown or Not Available. Results GLUCOSE - 1 HOUR AFTER 50GM GLUCOLA - Collect Date/Time: 12/06/2022 17:11 Test Name Code Test Result Test Units Test Ref Rang e GLUCOSE 1 HOUR 1504-0 116 mg/dL L=0 H=135 HEMOGRAM + PLATELET WO DIFF - Collect Date/Time: 12/06/2022 17:11 Test Name Code Test Result Test Units Test Ref Rang e WBC 6690-2 11.11 th/cmm L=5.00 H=10.00 NRBC % 23839-4 0.0 % L=0.0 H=0.0 NRBC abs count 30784-8 0.0 mil/cmm L=0.0 H=0. 0 RBC 789-8 3.78 mil/cmm L=3.90 H=5.40 HEMOGLOBIN 718-7 12.0 gm/dL L=12.0 H=16.0 HEMATOCRIT 4544-3 34 % L=37 H=47 MCV 787-2 89 fL L=82 H=92 MCH 785-6 31.7 pg L=27.0 H=31.0 MCHC 786-4 35.5 % L=32.0 H=36.0 RDW-SD 788-0 42.2 fL L=39.0 H=49.0 PLATELET COUNT 777-3 250 th/cmm L=150 H=45 0 Active Medications Unknown or Not Available. Medications Administered During Visit Unknown or Not Available. Encounters Encounter Diagnosis Diagnosis Code Start Date care: primigravida [id number] 06/2023 Social History Smoking Status Code Start Date End Date Never smoker [id number] Patient Decision Aids Unknown or Not Available. Discharge Instructions You were admitted to [facility] on 12/06/2022 15:58 with a principal diagnosis of Encounter for supervision of normal first , third trimester You had the following tests done:GLUCOSE - 1 HOUR AFTER 50GM GLUCOLAHEMOGRAM + PLATELET WO DIFF You were discharged from [facility] on 12/06/2022 15:59 Should you have any questions prior to [...]
--- OUTSIDE RECORDS SUMMARY | 2023-11-12 19:11 | XMS_ITS | CCD ---
Author Name Unknown Address [address] [place] [address] [phone] Organization Unknown Address [address] [place] [address] [phone] Care Team Providers Care Credit Control Clerk Name Role Phone January Attending Physician [phone] January Rounding (Secondary) Physician [phone] Vital Signs Unknown or Not Available. Allergies [...] Diagnosis Diagnosis Code Start Date care: primigravida [id number] Social History Smoking Status Code Start Date End Date Never smoker [id number] Patient Decision Aids Unknown or Not Available. Discharge Instructions You were admitted to [facility] on 12/21/2022 15:57 with a principal diagnosis of Encounter for supervision of normal first , third trimester You were discharged from [facility] on 12/21/2022 15:57 Should you have any questions prior to [...]
--- OUTSIDE RECORDS SUMMARY | 2023-11-12 19:11 | XMS_ITS | CCD ---
Author Name Unknown Address [address] [place] [address] [phone] Organization Unknown Address [address] [place] [address] [phone] Care Team Providers Care Plant And Maintenance Technician Name Role Phone SYD PIERCE Attending Physician [phone] SYD PIERCE Rounding (Secondary) Physician [phone] Vital Signs Unknown or Not Available. Allergies Allergy Code Allergy Type Reaction Status No Known Allergies 0 No known allergies Active Procedures Unknown or Not Available. History of Immunizations Immunization Code Date Tdap 115 04/18/2014 Problems Unknown or Not Available. Results GROUP B STREP DNA BY PCR - C ollect Date/Time: 02/01/2023 16:00 Test Name Code Test Result Test Units Test Ref Rang e GROUP B STREP NEGATIVE N/A Normal: Neg ative OTHER SOURCE: VAG/RECTA N/A PCN ALLERGY? NO N/A Copy Sent to OB? YES N/A Active Medications Unknown or Not Available. Medications Administered During Visit Unknown or Not Available. Encounters Encounter Diagnosis Diagnosis Code Start Date care: primigravida [id number] 04/2023 Social History Smoking Status Code Start Date End Date Never smoker [id number] Patient Decision Aids Unknown or Not Available. Discharge Instructions You were admitted to [facility] on 02/01/2023 15:56 with a principal diagnosis of Encounter for supervision of normal first , third trimester You had the following tests done:GROUP B STREP DNA BY PCR You were discharged from [facility] on 02/01/2023 15:56 Should you have any questions prior to [...]
--- OUTSIDE RECORDS SUMMARY | 2023-11-12 19:12 | XMS_ITS | CCD ---
Author Name Unknown Address [address] [place] [address] [id number] Organization Unknown Address [address] [place] [address] [id number] Care Team Providers Care Acting Section Chief Name Role Phone RASHEEDA YARBROUGH Attending Physician [phone] Vital Signs Unknown or Not Available. Allergies [...] Diagnosis Diagnosis Code Start Date Encounter for screening, unspecified Z 369 07/30/2022 Social History Smoking Status Code Start Date End Date Never smoker [id number] Patient Decision Aids Unknown or Not Available. Discharge Instructions You were admitted to [facility] on 07/30/2022 13:18 with a principal diagnosis of Encounter for screening, unspecified You were discharged from [facility] on 07/30/2022 13:18 Should you have any questions prior to [...]
--- OUTSIDE RECORDS SUMMARY | 2023-11-12 19:12 | XMS_ITS | CCD ---
Author Name Unknown Address [address] [place] [address] [id number] Organization Unknown Address [address] [place], [place] [id number] Care Team Providers Care Marbleizing Machine Tender Name Role Phone JUVE GAMEZ Attending Physician [phone] JUVE GAMEZ Rounding (Secondary) Physicia n [phone] Vital Signs Unknown or Not Available. Allergies [...] Diagnosis Diagnosis Code Start Date care: primigravida [id number] Social History Smoking Status Code Start Date End Date Never smoker [id number] Patient Decision Aids Unknown or Not Available. Discharge Instructions You were admitted to [facility] on 08/23/2022 08:46 with a principal diagnosis of Encounter for supervision of normal first , first trimester You were discharged from [facility] on 08/23/2022 08:46 Should you have any questions prior to [...]
--- OUTSIDE RECORDS SUMMARY | 2023-11-12 19:12 | XMS_ITS | CCD ---
Author Name Unknown Address [address] [place] [address] [id number] Organization Unknown Address [address] [place] [address] [phone] Care Team Providers Care Associate Attorney Name Role Phone AIMEE BOO Attending Physician [phone] AIMEE BOO Rounding (Secondary) Physician [phone] Vital Signs Unknown or Not Available. Allergies Allergy Code Allergy Type Reaction Status No Known Allergies 0 No known allergies Active Procedures Unknown or Not Available. History of Immunizations Immunization Code Date Tdap 115 04/18/2014 Problems Unknown or Not Available. Results AFP (OB) ALPHA FETOPROTEIN* - Collect Date/Time: 09/14/2022 09:44 Test Name Code Test Result Test Units Test Ref Rang e AFP 57739-3 46.0 ng/mL AFP MoM 36441-2 1.12 MoM <2.50 Maternal Weight 52957-2 137 lbs Number of Fetuses 89347-0 1 Physician Phone Number [phone] Results Summary 09218-6 Normal risk N/A Neural tube defect riskestimate 93699-9 1/10,000 N/A INTERPRETATION 77505-0 Screen negative for neural tube defects. N/A RECOMMENDED FOLLOW UP 17050-9 None. N/A Specimen collection date 87057-8 09/14/22 N/[place] [address]-7 [birth year] N/A Calculated age at VIDHYA 58129-0 27 years N/A Insulin dependentdiabetes 91175-6 No N/A Patient race 98782-2 non-Black N/A Current cigarettesmoking status 91879-3 non-Smoker N/A VIDHYA by U/S scan 52805-3 02/22/23 N/A GA on collection by U/Sscan 84265-5 17,0 N/A GA used in risk estimate 34601-3 Scan estimate N/A Number of Chorions 11093-6 Not applicable N/A IVF 19235-3 No N/A Prev w/ NeuralTube Defect 96632-7 No N/A Patient or father ashu has a NTD 40405-9 No N/A Initial or repeat testing 26554-1 Initial testing N/A GENERAL TEST INFORMATION 10047-5 See Comments N/A CHLAMYDIA/GC AMPLIFIED PROBE * - Collect Date/Time: 09/14/2022 09:24 Test Name Code Test Result Test Units Test Ref Rang e Chlamydia Result Negative N/A Negative GC Result Negative N/A Negative Active Medications Unknown or Not Available. Medications Administered During Visit Unknown or Not Available. Encounters Encounter Diagnosis Diagnosis Code Start Date care: primigravida [id number] Social History Smoking Status Code Start Date End Date Never smoker [id number] Patient Decision Aids Unknown or Not Available. Discharge Instructions You were admitted to [facility] on 09/14/2022 08:52 with a principal diagnosis of Encounter for supervision of normal first , second trimester You had the following tests done:AFP (OB) ALPHA FETOPROTEIN*CHLAMYDIA/GC AMPLIFIED PROBE* You were discharged from [facility] on 09/14/2022 08:52 Should you have any questions prior to [...]
--- OUTSIDE RECORDS SUMMARY | 2023-11-12 19:12 | XMS_ITS | CCD ---
Author Name Unknown Address [address] [place] [address] [phone] Organization Unknown Address [address] [place], [place] [phone] Care Team Providers Care Bottom Saw Operator Name Role Phone JUVE GAMEZ Attending Physician [phone] JUVE GAMEZ Rounding (Secondary) Physicia n [phone] Vital Signs Unknown or Not Available. Allergies [...] Diagnosis Diagnosis Code Start Date care: primigravida [id number] Social History Smoking Status Code Start Date End Date Never smoker [id number] Patient Decision Aids Unknown or Not Available. Discharge Instructions You were admitted to [facility] on 11/09/2022 16:16 with a principal diagnosis of Encounter for supervision of normal first , second trimester You were discharged from [facility] on 11/09/2022 16:16 Should you have any questions prior to [...]
--- OUTSIDE RECORDS SUMMARY | 2023-11-12 19:12 | XMS_ITS | CCD ---
Author Name Unknown Address [address] [place] [address] [id number] Organization Unknown Address [address] [place], [place] [phone] Care Team Providers Care Production Designer Name Role Phone RASHEEDA YARBROUGH Attending Physician [phone] RASHEEDA YARBROUGH Rounding (Secondary) Physici an [phone] Vital Signs Unknown or Not Available. Allergies [...] Diagnosis Diagnosis Code Start Date care: primigravida [id number] 04/2022 Social History Smoking Status Code Start Date End Date Never smoker [id number] Patient Decision Aids Unknown or Not Available. Discharge Instructions You were admitted to [facility] on 08/03/2022 08:31 with a principal diagnosis of Encounter for supervision of normal first , first trimester You were discharged from [facility] on 08/03/2022 08:32 Should you have any questions prior to [...]
--- OUTSIDE RECORDS SUMMARY | 2023-11-12 19:12 | XMS_ITS | CCD ---
Author Name Unknown Address [address] [place] [address] [id number] Organization Unknown Address [address] [place] [address] [phone] Care Team Providers Care Towerman Name Role Phone RASHEEDA YARBROUGH Attending Physician [phone] Vital Signs Unknown or Not Available. [...] Encounter Diagnosis Diagnosis Code Start Date Other specified diseases and conditions complicating [id number] 09/05/2022 Social History Smoking Status Code Start Date End Date Never smoker [id number] Patient Decision Aids Unknown or Not Available. Discharge Instructions You were admitted to on 09/05/2022 08:48 with a principal diagnosis of Other specified diseases and conditions complicating You were discharged from on 09/05/2022 12:50 Should you have any questions prior to [...]
--- OUTSIDE RECORDS SUMMARY | 2023-11-12 19:12 | XMS_ITS | CCD ---
Author Name Unknown Address [address] [place] [address] [id number] Organization Unknown Address [address] [place] [address] [phone] Care Team Providers Care Brim Shaper Name Role Phone RASHEEDA YARBROUGH Attending Physician [phone] RASHEEDA YARBROUGH Rounding (Secondary) Physici an [phone] Vital Signs Unknown or Not Available. Allergies Allergy Code Allergy Type Reaction Status No Known Allergies 0 No known allergies Active Procedures Unknown or Not Available. History of Immunizations Immunization Code Date Tdap 115 04/18/2014 Problems Unknown or Not Available. Results HEMATOLOGY* - Colle ct Date/Time: 07/20/2022 11:47 Test Name Code Test Result Test Units Test Ref Rang e WBC 6690-2 10.96 th/cmm L=5.00 H=10.00 NEUT % 76.1 % L=40.0 H=80.0 LYMPH % 16.1 % L=10.0 H=50.0 MONO % 12483-0 6.8 % L=2.0 H=12.0 EOS % 0.3 % L=0.0 H=8.0 BASO % 0.4 % L=0.0 H=3.0 IG % 2514-8 0.3 % L=0.0 H=1.1 NRBC % 70217-1 0.0 % L=0.0 H=0.0 NEUT abs count 751-8 8.4 th/cmm L=1.6 H=8. 4 LYMPH abs count 731-0 1.8 th/cmm L=1.5 H=4 .0 MONO abs count 742-7 0.8 th/cmm L=0.2 H=1. 0 EOS abs count 711-2 0.0 th/cmm L=0.0 H=0.5 BASO abs count 704-7 0.0 th/cmm L=0.0 H=0. 2 IG abs count 39000-8 0.0 th/cmm L=0.0 H=0.1 NRBC abs count 74311-7 0.0 mil/cmm L=0.0 H=0. 0 RBC 789-8 4.41 mil/cmm L=3.90 H=5.40 HEMOGLOBIN 718-7 13.5 gm/dL L=12.0 H=16.0 HEMATOCRIT 4544-3 39 % L=37 H=47 MCV 787-2 88 fL L=82 H=92 MCH 785-6 30.6 pg L=27.0 H=31.0 MCHC 786-4 34.7 % L=32.0 H=36.0 RDW-SD 788-0 40.8 fL L=39.0 H=49.0 PLATELET COUNT 777-3 308 th/cmm L=150 H=45 0 ECW URINE CULTURE* - Collect Date/Time: 07/20/2022 11:47 Test Name Code Test Result Test Units Test Ref Rang e COLLECTION MODE: 17761-0 CLEAN CATCH N/A URINALYSIS ROUTINE* - [facility] t Date/Time: 07/20/2022 11:47 Test Name Code Test Result Test Units Test Ref Rang e COLLECTION MODE: 18507-4 NOT STATED N/A Color 5778-6 YELLOW N/A yellow Appearance 5767-9 CLEAR N/A clear Glucose urine 30646-0 NEGATIVE N/A negative mg /dl Bilirubin 5770-3 NEGATIVE N/A negative Ketones 2514-8 NEGATIVE N/A negative mg/dl Spec gravity 5811-5 1.020 N/A 1.003 - 1.03 0 pH urine 2756-5 6.5 N/A 5.0 - 7.0 Protein 68390-2 NEGATIVE N/A negative mg/dl Urobilinogen 86140-7 0.2 N/A <or= 1 EU/dl Nitrite 5802-4 NEGATIVE N/A negative Blood 5794-3 NEGATIVE N/A negative Leukocytes 78690-9 NEGATIVE N/A negative MICROSCOPIC* NOT INDICAT N/A TYPE AND ANTIBODY S CREEN* - Collect Date/Time: 07/20/2022 11:47 Test Name Code Test Result Test Units Test Ref Rang e Blood Group 883-9 A N/A Rh (D) 76241-1 POSITIVE N/A Antibody Screen 1005-8 NEGATIVE N/A HEP B SURF ANTIGEN* - [facility] t Date/Time: 07/20/2022 11:47 Test Name Code Test Result Test Units Test Ref Rang e Hep B Surface Ag Negative N/A Negative HEP C ANTIBODY WITH REFLEX P CR - Collect Date/Time: 07/20/2022 11:47 Test Name Code Test Result Test Units Test Ref Rang e Hep C Ab w Rfx PCR Negative N/A Negati ve HIV 1/2 ANTIGEN AND ANTIBODY SCREEN - Collect Date/Time: 07/20/2022 11:47 Test Name Code Test Result Test Units Test Ref Rang e HIV 1/2 Antigen andAntibody Negative N/A Negative RUBELLA IGG ANTIBODY - [facility] ct Date/Time: 07/20/2022 11:47 Test Name Code Test Result Test Units Test Ref Rang e Rubella IgG Ab Positive N/A See Note SYPHILIS SEROLOGY* - Collect Date/Time: 07/20/2022 11:47 Test Name Code Test Result Test Units Test Ref Rang e Syphilis Serology Negative N/A Negativ e Active Medications Unknown or Not Available. Medications Administered During Visit Unknown or Not Available. Encounters Encounter Diagnosis Diagnosis Code Start Date Encounter for supervision of normal first , first trimester [id number] 07/20/2022 Social History Smoking Status Code Start Date End Date Never smoker [id number] Patient Decision Aids Unknown or Not Available. Discharge Instructions You were admitted to [facility] on 07/20/2022 10:07 with a principal diagnosis of Encounter for supervision of normal first , first trimester You had the following tests done:ECW URINE CULTURE*HEP B SURF ANTIGEN*HEP C ANTIBODY WITH REFLEX PCRHIV 1/2 ANTIGEN AND ANTIBODY SCREENPRENATAL HEMATOLOGY* TYPE AND ANTIBODY SCREEN*RUBELLA IGG ANTIBODYSYPHILIS SEROLOGY*URINALYSIS ROUTINE* You were discharged from [facility] on 07/20/2022 10:07 Should you have any questions prior to [...]
--- OUTSIDE RECORDS SUMMARY | 2023-11-12 19:13 | XMS_ITS | CCD ---
Author Name Unknown Address [address] [place] [address] [phone] Organization Unknown Address [address] [place] [address] [phone] Care Team Providers Care Rate Reviewer Name Role Phone RASHEEDA YARBROUGH Attending Physician [phone] Vital Signs Unknown or Not Available. Allergies Allergy Code Allergy Type Reaction Status No Known Allergies 0 No known allergies Active Procedures Unknown or Not Available. History of Immunizations Immunization Code Date Tdap 115 04/18/2014 Problems Unknown or Not Available. Results TYPE AND ANTIBODY S CREEN* - Collect Date/Time: 06/15/2022 16:18 Test Name Code Test Result Test Units Test Ref Rang e Blood Group 883-9 A N/A Rh (D) 17183-1 POSITIVE N/A Antibody Screen 1005-8 NEGATIVE N/A Active Medications Unknown or Not Available. Medications Administered During Visit Unknown or Not Available. Encounters Encounter Diagnosis Diagnosis Code Start Date [id number] 06/15/2022 Social History Smoking Status Code Start Date End Date Never smoker [id number] Patient Decision Aids Unknown or Not Available. Discharge Instructions You were admitted to [facility] on 06/15/2022 16:14 with a principal diagnosis of state, incidental You had the following tests done: TYPE AND ANTIBODY SCREEN* You were discharged from [facility] on 06/15/2022 16:14 Should you have any questions prior to [...]
--- OUTSIDE RECORDS SUMMARY | 2023-11-12 19:13 | XMS_ITS | CCD ---
Author Name Unknown Address [address] [place] [address] [phone] Organization Unknown Address [address] [place] [address] [phone] Care Team Providers Care Syrup Mixer Helper Name Role Phone RASHEEDA YARBROUGH Attending Physician [phone] Vital Signs Unknown or Not Available. Allergies Allergy Code Allergy Type Reaction Status No Known Allergies 0 No known allergies Active Procedures Unknown or Not Available. History of Immunizations Immunization Code Date Tdap 115 04/18/2014 Problems Unknown or Not Available. Results [facility] BETA HCG FOR * - Collect Date/Time: 06/18/2022 15:07 Test Name Code Test Result Test Units Test Ref Rang e Quant Beta HCG, 328 N/A <5 Active Medications Unknown or Not Available. Medications Administered During Visit Unknown or Not Available. Encounters Encounter Diagnosis Diagnosis Code Start Date [id number] 06/18/2022 Social History Smoking Status Code Start Date End Date Never smoker [id number] Patient Decision Aids Unknown or Not Available. Discharge Instructions You were admitted to [facility] on 06/18/2022 14:35 with a principal diagnosis of state, incidental You had the following tests done:[facility] BETA HCG FOR * You were discharged from [facility] on 06/18/2022 14:35 Should you have any questions prior to [...]
--- NOTE | 2023-11-12 19:53 | DI.VRAD_ITS ---
PROCEDURE INFORMATION: Exam: XR Chest Exam date and time: 11/12/2023 7:40 PM Age: 27 years old Clinical indication: Cough TECHNIQUE: Imaging protocol: Radiologic exam of the chest. Views: 2 views. COMPARISON: No relevant prior studies available. FINDINGS: Lungs: Unremarkable. No consolidation. Pleural spaces: Unremarkable. No pleural effusion. No pneumothorax. Heart/Mediastinum: Unremarkable. No cardiomegaly. Bones/joints: Unremarkable. IMPRESSION: No acute findings. Dictated and Authenticated by: Jim Felix MD. Ordering:BRET Beckwith MD
[2023-11-12] MEDS: Benzonatate 100 MG CAP PO (20:00)
== END 2023-11-12 20:03 | disposition home or self-care (01) ==
PROVIDERS: Emergency Provider Registered Nurse Emergency; PCP Family Medicine
DX: R05.9 Cough, unspecified (principal)
CPT/HCPCS: 87426; 99284; 71046